=== PATIENT | female | born 1945 | race Caucasian/White ===

== ENCOUNTER → 2016-10-01 | Outpatient (REF) | payer MEDICARE, OTHER ==
[~2016-10-01] MED LIST: /PANT40TA OR; /WARF2TA PO; ACET65TA OR; ARTISOL10 OP; CALCIUM PO; COLA100C2 OR; DOXY100T IV; DRISDOL PO; HEPARIN FLUSH IV; OSTEO BI-FLEX PO; SALINE LOCK FLUSH IV; VITA500T PO; VITAMIN B COMPLE1 PO; VITAMIN D PO
[2016-10-01 20:34] LABS: ALBUMIN 4.1 GM/DL (3.2-5.2); ALBUMIN/GLOBULIN RATIO 1.08 (1.00-1.93); ALKALINE PHOSPHATASE 77 U/L (45-117); ALT/SGPT 31 U/L (12-78); ANION GAP 6 MEQ/L (8-16); AST/SGOT 23 U/L (15-37); BILIRUBIN,TOTAL 0.4 MG/DL (0.2-1.0); BLOOD UREA NITROGEN 12 MG/DL (7-18); CALCIUM LEVEL 9.1 MG/DL (8.8-10.2); CARBON DIOXIDE LEVEL 33 MEQ/L (21-32); CHLORIDE LEVEL 99 MEQ/L (98-107); CREATININE FOR GFR 0.69 MG/DL (0.55-1.02); GLOMERULAR FILTRATION RATE > 60.0 (>39); GLUCOSE, FASTING 85 MG/DL (83-110); POTASSIUM SERUM 4.5 MEQ/L (3.5-5.1); SODIUM LEVEL 138 MEQ/L (136-145); TOTAL PROTEIN 7.9 GM/DL (6.4-8.2)
[2016-10-01 21:05] LABS: MEAN CORPUSCULAR HEMOGLOBIN 28.7 pg (27.0-33.0); MEAN CORPUSCULAR HGB CONC 30.9 g/dl (32.0-36.5); MEAN CORPUSCULAR VOLUME 93.2 fl (80.0-96.0); RED CELL DISTRIBUTION WIDTH 13.9 % (11.5-14.5); WHITE BLOOD COUNT 10.7 K/mm3 (4.0-10.0)
== END ==
LOC: M SFHCADAM 15:26
PROVIDERS: ATTEND Family Medicine
DX: I26.99 Other pulmonary embolism without acute cor pulmonale (principal); E21.0 Primary hyperparathyroidism

== ENCOUNTER → 2017-04-21 | Outpatient (REF) | payer MEDICARE, OTHER ==
[2017-04-21 12:28] LABS: MEAN CORPUSCULAR HEMOGLOBIN 29.9 pg (27.0-33.0); MEAN CORPUSCULAR HGB CONC 31.2 g/dl (32.0-36.5); MEAN CORPUSCULAR VOLUME 95.9 fl (80.0-96.0); PLATELET COUNT, AUTOMATED 348 10^3/uL (150-450); RED CELL DISTRIBUTION WIDTH 14.4 % (11.5-14.5); WHITE BLOOD COUNT 11.1 10^3/uL (4.0-10.0)
[2017-04-21 12:57] LABS: ALBUMIN 3.9 GM/DL (3.2-5.2); ALBUMIN/GLOBULIN RATIO 1.15 (1.00-1.93); ALKALINE PHOSPHATASE 72 U/L (45-117); ALT/SGPT 21 U/L (12-78); ANION GAP 8 MEQ/L (8-16); AST/SGOT 21 U/L (7-37); BILIRUBIN,TOTAL 0.3 MG/DL (0.2-1.0); BLOOD UREA NITROGEN 13 MG/DL (7-18); CALCIUM LEVEL 9.3 MG/DL (8.8-10.2); CARBON DIOXIDE LEVEL 30 MEQ/L (21-32); CHLORIDE LEVEL 104 MEQ/L (98-107); CHOLESTEROL LEVEL 278 MG/DL (<200); CREATININE FOR GFR 0.75 MG/DL (0.55-1.02); FREE T4 1.08 NG/DL (0.76-1.46); GLOMERULAR FILTRATION RATE > 60.0 (>39); GLUCOSE, FASTING 126 MG/DL (83-110); POTASSIUM SERUM 4.4 MEQ/L (3.5-5.1); SODIUM LEVEL 142 MEQ/L (136-145); TOTAL PROTEIN 7.3 GM/DL (6.4-8.2); TRIGLYCERIDES LEVEL 267 MG/DL (<150)
== END ==
LOC: M SFHCADAM 09:39
PROVIDERS: ATTEND Family Medicine
DX: R73.03 Prediabetes (principal); E78.2 Mixed hyperlipidemia; E55.9 Vitamin D deficiency, unspecified; I26.99 Other pulmonary embolism without acute cor pulmonale; Z23 Encounter for immunization
CPT/HCPCS: 80053; 80061; 82306; 83036; 84439; 84443; 85027; 90662; G0008; G0463

== ENCOUNTER → 2017-08-05 | Outpatient (CLI) | payer MEDICARE, OTHER | LOC: M ADAMS 15:14 | DX: J20.9 Acute bronchitis, unspecified (principal) | CPT/HCPCS: 71046 ==

== ENCOUNTER 2018-03-01 13:20 | Inpatient (IN) | payer MEDICARE, BC, OTHER ==
[2018-03-01] MEDS: PANTOPRAZOLE 40MG TAB (PROTONIX) PO (09:00)
[~2018-03-01 13:20] MED LIST changes: +CIPROFLOXACIN 200 MG in APPROPRIATE DILUENT 1 EA IV; -GASTROGRAFIN SOLUTION 30ML (Q9963) As Ordered; -ISOVUE-370 76% 100ML VIAL (Q9967) As Ordered
[2018-03-01] MEDS: NS 1,000 ML IV ×2 (14:22→21:00)
[2018-03-01] MEDS: NORCO, ANEXSIA 5/325MG TABLET (HYDROcodone/ACETAMINOPHEN) PO ×2 (14:30→23:01)
[2018-03-01] MEDS: ONDANSETRON 4MG/2ML VIAL (J2405) IV ×2 (16:00→22:00)
[2018-03-01] MEDS: CIPROFLOXACIN/D5W 400 MG/200 ML BAG (J0744) As Ordered (16:45)
[2018-03-01] MEDS: LIDOCAINE 2% 5ML JELLY UROJET As Ordered (17:01)
[2018-03-01] MEDS: CONRAY-60 60% 50ML VIAL (Q9961) As Ordered (17:05)
[2018-03-01] MEDS ORDERED: ONDANSETRON 4MG/2ML VIAL (J2405) As Ordered (17:19)
[2018-03-01] MEDS ORDERED: fentaNYL 100 MCG/2 ML INJECTION (J3010) As Ordered ×2 (17:19→17:21)
[2018-03-01] MEDS ORDERED: LIDOCAINE 2% INJ 100 MG/5 ML SDV (FOR ANES.) As Ordered (17:19)
[2018-03-01] MEDS ORDERED: ESMOLOL INJ 100MG/10ML VIAL As Ordered (17:19)
[2018-03-01] MEDS ORDERED: MIDAZOLAM INJ 2 MG/2 ML VIAL (J2250) As Ordered (17:19)
[2018-03-01] MEDS ORDERED: PROPOFOL 200 MG/20 ML VIAL As Ordered (17:19)
[2018-03-01] MEDS ORDERED: fentaNYL 100 MCG/2 ML INJECTION (J3010) IV (18:00)
[2018-03-01] MEDS ORDERED: NORCO, ANEXSIA 5/325MG TABLET (HYDROcodone/ACETAMINOPHEN) PO (18:00)
[2018-03-01] MEDS: LR 1,000 ML IV (18:00)
[2018-03-01] MEDS ORDERED: ONDANSETRON 4MG/2ML VIAL (J2405) IV (18:00)
[2018-03-01] MEDS: MORPHINE 4 MG/ML 1ML VIAL/SYRINGE (J2270) IV (20:23)
[2018-03-02] MEDS: MORPHINE 4 MG/ML 1ML VIAL/SYRINGE (J2270) IV ×3 (01:20→06:42)
[2018-03-02] MEDS: NORCO, ANEXSIA 5/325MG TABLET (HYDROcodone/ACETAMINOPHEN) PO ×2 (03:08→10:34)
[2018-03-02] MEDS: ONDANSETRON 4MG/2ML VIAL (J2405) IV ×4 (04:00→21:44)
[2018-03-02] MEDS: NS 1,000 ML IV ×3 (05:00→21:41)
[2018-03-02] MEDS: CIPROFLOXACIN 400 MG in APPROPRIATE DILUENT 1 EA IV ×2 (05:53→17:37)
[2018-03-02 05:55] LABS: BASO # 0.1 10^3/uL (0.0-0.2); BASO % 0.4 % (0.0-1.0); EOS # 0.1 10^3/uL (0.0-0.50); HEMATOCRIT 34.8 % (36.0-47.0); HEMOGLOBIN 10.7 g/dl (12.0-15.5); IMMATURE GRANULOCYTE % 0.7 % (0-3.0); LYMPH # 1.6 10^3/uL (1.5-4.5); LYMPH % 11.4 % (24.0-44.0); MEAN CORPUSCULAR HEMOGLOBIN 29.2 pg (27.0-33.0); MEAN CORPUSCULAR HGB CONC 30.7 g/dl (32.0-36.5); MEAN CORPUSCULAR VOLUME 94.8 fl (80.0-96.0); MONO # 1.3 10^3/uL (0.0-0.8); MONO % 9.5 % (0.0-5.0); NEUTROPHILS # 10.4 10^3/uL (1.8-7.7); PLATELET COUNT, AUTOMATED 313 10^3/uL (150-450); RED BLOOD COUNT 3.67 10^6/uL (4.00-5.40); RED CELL DISTRIBUTION WIDTH 14.7 % (11.5-14.5); WHITE BLOOD COUNT 13.6 10^3/uL (4.0-10.0)
[2018-03-02 06:21] LABS: ANION GAP 5 MEQ/L (8-16); BLOOD UREA NITROGEN 10 MG/DL (7-18); CALCIUM LEVEL 8.2 MG/DL (8.8-10.2); CARBON DIOXIDE LEVEL 32 MEQ/L (21-32); CHLORIDE LEVEL 102 MEQ/L (98-107); CREATININE FOR GFR 0.93 MG/DL (0.55-1.30); GLOMERULAR FILTRATION RATE > 60.0 (>39); GLUCOSE, FASTING 145 MG/DL (70-100); POTASSIUM SERUM 3.8 MEQ/L (3.5-5.1); SODIUM LEVEL 139 MEQ/L (136-145)
[2018-03-02] MEDS: PANTOPRAZOLE 40MG TAB (PROTONIX) PO (09:06)
[2018-03-02] MEDS: oxyBUTYnin *DITROPAN XL* 5 MG TABCR PO (10:08)
[2018-03-02] MEDS: RIVAROXABAN 20 MG TAB (XARELTO) PO (17:37)
[2018-03-02] MEDS: ACETAMINOPHEN 500 MG TAB PO (21:41)
[2018-03-03] MEDS: ONDANSETRON 4MG/2ML VIAL (J2405) IV ×4 (04:00→22:00)
[2018-03-03] MEDS: ACETAMINOPHEN 500 MG TAB PO ×3 (04:08→19:41)
[2018-03-03] MEDS: CIPROFLOXACIN 400 MG in APPROPRIATE DILUENT 1 EA IV (05:17)
[2018-03-03] MEDS: NS 1,000 ML IV (05:17)
[2018-03-03 05:49] LABS: BASO # 0.1 10^3/uL (0.0-0.2); BASO % 0.5 % (0.0-1.0); EOS # 0.2 10^3/uL (0.0-0.50); EOS % 1.5 % (0.0-3.0); HEMATOCRIT 35.2 % (36.0-47.0); HEMOGLOBIN 10.7 g/dl (12.0-15.5); IMMATURE GRANULOCYTE % 0.6 % (0-3.0); LYMPH # 1.9 10^3/uL (1.5-4.5); LYMPH % 16.6 % (24.0-44.0); MEAN CORPUSCULAR HEMOGLOBIN 29.4 pg (27.0-33.0); MEAN CORPUSCULAR HGB CONC 30.4 g/dl (32.0-36.5); MEAN CORPUSCULAR VOLUME 96.7 fl (80.0-96.0); MONO # 1.2 10^3/uL (0.0-0.8); MONO % 10.1 % (0.0-5.0); NEUTROPHILS # 8.2 10^3/uL (1.8-7.7); NEUTROPHILS % 70.7 % (36.0-66.0); PLATELET COUNT, AUTOMATED 348 10^3/uL (150-450); RED BLOOD COUNT 3.64 10^6/uL (4.00-5.40); RED CELL DISTRIBUTION WIDTH 14.9 % (11.5-14.5); WHITE BLOOD COUNT 11.5 10^3/uL (4.0-10.0)
[2018-03-03 06:09] LABS: ANION GAP 8 MEQ/L (8-16); BLOOD UREA NITROGEN 9 MG/DL (7-18); CALCIUM LEVEL 8.7 MG/DL (8.8-10.2); CARBON DIOXIDE LEVEL 31 MEQ/L (21-32); CHLORIDE LEVEL 105 MEQ/L (98-107); CREATININE FOR GFR 0.85 MG/DL (0.55-1.30); GLOMERULAR FILTRATION RATE > 60.0 (>39); GLUCOSE, FASTING 136 MG/DL (70-100); POTASSIUM SERUM 4.6 MEQ/L (3.5-5.1); SODIUM LEVEL 144 MEQ/L (136-145)
[2018-03-03] MEDS ORDERED: ALBUTEROL SULFATE 2.5 MG/0.5 ML INH NEB SOLN NEB (08:15)
[2018-03-03] MEDS ORDERED: DOCUSATE SODIUM 100 MG CAP PO (08:30)
[2018-03-03] MEDS: PANTOPRAZOLE 40MG TAB (PROTONIX) PO (09:23)
[2018-03-03] MEDS: oxyBUTYnin *DITROPAN XL* 5 MG TABCR PO (09:23)
[2018-03-03 13:49] LABS: ALBUMIN 2.7 GM/DL (3.2-5.2); ALBUMIN/GLOBULIN RATIO 0.71 (1.00-1.93); ALKALINE PHOSPHATASE 74 U/L (45-117); ALT/SGPT 21 U/L (12-78); ANION GAP 8 MEQ/L (8-16); AST/SGOT 22 U/L (7-37); BILIRUBIN,TOTAL 0.3 MG/DL (0.2-1.0); BLOOD UREA NITROGEN 9 MG/DL (7-18); CALCIUM LEVEL 8.7 MG/DL (8.8-10.2); CARBON DIOXIDE LEVEL 31 MEQ/L (21-32); CHLORIDE LEVEL 105 MEQ/L (98-107); CREATININE FOR GFR 0.74 MG/DL (0.55-1.30); GLOMERULAR FILTRATION RATE > 60.0 (>39); GLUCOSE, FASTING 108 MG/DL (70-100); LIPASE 326 U/L (73-393); POTASSIUM SERUM 4.7 MEQ/L (3.5-5.1); SODIUM LEVEL 144 MEQ/L (136-145); TOTAL PROTEIN 6.5 GM/DL (6.4-8.2)
[2018-03-03] MEDS: RIVAROXABAN 20 MG TAB (XARELTO) PO (18:36)
[2018-03-03] MEDS: CIPROFLOXACIN 500 MG TAB PO (18:36)
[2018-03-03] MEDS: NORCO, ANEXSIA 5/325MG TABLET (HYDROcodone/ACETAMINOPHEN) PO (22:14)
[2018-03-04] MEDS: ONDANSETRON 4MG/2ML VIAL (J2405) IV ×2 (03:24→08:55)
[2018-03-04] MEDS: NORCO, ANEXSIA 5/325MG TABLET (HYDROcodone/ACETAMINOPHEN) PO (03:44)
[2018-03-04 05:23] LABS: BASO # 0.1 10^3/uL (0.0-0.2); BASO % 0.6 % (0.0-1.0); EOS # 0.3 10^3/uL (0.0-0.50); EOS % 2.7 % (0.0-3.0); HEMATOCRIT 33.7 % (36.0-47.0); HEMOGLOBIN 10.3 g/dl (12.0-15.5); IMMATURE GRANULOCYTE % 0.7 % (0-3.0); LYMPH # 1.8 10^3/uL (1.5-4.5); LYMPH % 18.5 % (24.0-44.0); MEAN CORPUSCULAR HEMOGLOBIN 29.2 pg (27.0-33.0); MEAN CORPUSCULAR HGB CONC 30.6 g/dl (32.0-36.5); MEAN CORPUSCULAR VOLUME 95.5 fl (80.0-96.0); MONO # 0.9 10^3/uL (0.0-0.8); MONO % 9.6 % (0.0-5.0); NEUTROPHILS # 6.6 10^3/uL (1.8-7.7); NEUTROPHILS % 67.9 % (36.0-66.0); PLATELET COUNT, AUTOMATED 316 10^3/uL (150-450); RED BLOOD COUNT 3.53 10^6/uL (4.00-5.40); RED CELL DISTRIBUTION WIDTH 14.6 % (11.5-14.5); WHITE BLOOD COUNT 9.7 10^3/uL (4.0-10.0)
[2018-03-04] MEDS: CIPROFLOXACIN 500 MG TAB PO (05:25)
[2018-03-04 05:44] LABS: ESTIMATED AVERAGE GLUCOSE 146 MG/DL (60-110); HEMOGLOBIN A1c 6.7 %
[2018-03-04 05:50] LABS: ANION GAP 6 MEQ/L (8-16); BLOOD UREA NITROGEN 9 MG/DL (7-18); CALCIUM LEVEL 8.6 MG/DL (8.8-10.2); CARBON DIOXIDE LEVEL 32 MEQ/L (21-32); CHLORIDE LEVEL 105 MEQ/L (98-107); CREATININE FOR GFR 0.78 MG/DL (0.55-1.30); GLOMERULAR FILTRATION RATE > 60.0 (>39); GLUCOSE, FASTING 118 MG/DL (70-100); POTASSIUM SERUM 3.9 MEQ/L (3.5-5.1); SODIUM LEVEL 143 MEQ/L (136-145)
[2018-03-04] MEDS: PANTOPRAZOLE 40MG TAB (PROTONIX) PO (08:55)
[2018-03-04] MEDS: oxyBUTYnin *DITROPAN XL* 5 MG TABCR PO (08:55)
[2018-03-04] MEDS ORDERED: SLF 3 ML SYR IV ×2 (11:30→14:00)
== END 2018-03-04 12:56 | disposition home or self-care (01) | DRG 694 ==
LOC: M PCU 13:20
PROC: 0T9680Z Drainage of Right Ureter with Drainage Device, Via Natural or Artificial Opening Endoscopic (ICD-10-PCS; principal; 2018-03-01 14:04)
DX: N20.2 Calculus of kidney with calculus of ureter (principal); N39.0 Urinary tract infection, site not specified; K40.90 Unilateral inguinal hernia, without obstruction or gangrene, not specified as recurrent; K21.9 Gastro-esophageal reflux disease without esophagitis; R16.0 Hepatomegaly, not elsewhere classified; B96.4 Proteus (mirabilis) (morganii) as the cause of diseases classified elsewhere; Z87.442 Personal history of urinary calculi; Z88.0 Allergy status to penicillin; Z88.1 Allergy status to other antibiotic agents; Z88.6 Allergy status to analgesic agent; Z88.8 Allergy status to other drugs, medicaments and biological substances; Z86.711 Personal history of pulmonary embolism

== ENCOUNTER → 2018-03-01 | Outpatient (CLI) | payer MEDICARE, BC, OTHER ==
[~2018-03-01] MED LIST changes: -/PANT40TA OR; -/WARF2TA PO; -ACET65TA OR; -ARTISOL10 OP; -CALCIUM PO; -COLA100C2 OR; -DOXY100T IV; -DRISDOL PO; +GASTROGRAFIN SOLUTION 30ML (Q9963) As Ordered; -HEPARIN FLUSH IV; +ISOVUE-370 76% 100ML VIAL (Q9967) As Ordered; -OSTEO BI-FLEX PO; -SALINE LOCK FLUSH IV; -VITA500T PO; -VITAMIN B COMPLE1 PO; -VITAMIN D PO
[2018-03-01 09:52] LABS: BASO # 0.1 10^3/uL (0.0-0.2); BASO % 0.4 % (0.0-1.0); EOS # 0.1 10^3/uL (0.0-0.50); EOS % 0.8 % (0.0-3.0); HEMATOCRIT 36.6 % (36.0-47.0); HEMOGLOBIN 11.5 g/dl (12.0-15.5); IMMATURE GRANULOCYTE % 0.5 % (0-3.0); LYMPH # 1.4 10^3/uL (1.5-4.5); MEAN CORPUSCULAR HEMOGLOBIN 29.2 pg (27.0-33.0); MEAN CORPUSCULAR HGB CONC 31.4 g/dl (32.0-36.5); MEAN CORPUSCULAR VOLUME 92.9 fl (80.0-96.0); MONO # 1.1 10^3/uL (0.0-0.8); MONO % 7.5 % (0.0-5.0); NEUTROPHILS # 11.6 10^3/uL (1.8-7.7); NEUTROPHILS % 80.8 % (36.0-66.0); PLATELET COUNT, AUTOMATED 343 10^3/uL (150-450); RED BLOOD COUNT 3.94 10^6/uL (4.00-5.40); RED CELL DISTRIBUTION WIDTH 14.5 % (11.5-14.5); WHITE BLOOD COUNT 14.4 10^3/uL (4.0-10.0)
[2018-03-01 10:10] LABS: ALBUMIN 3.1 GM/DL (3.2-5.2); ALBUMIN/GLOBULIN RATIO 0.65 (1.00-1.93); ALKALINE PHOSPHATASE 74 U/L (45-117); ALT/SGPT 16 U/L (12-78); AMYLASE 23 U/L (25-115); ANION GAP 8 MEQ/L (8-16); AST/SGOT 13 U/L (7-37); BILIRUBIN,TOTAL 0.6 MG/DL (0.2-1.0); BLOOD UREA NITROGEN 11 MG/DL (7-18); CALCIUM LEVEL 8.9 MG/DL (8.8-10.2); CARBON DIOXIDE LEVEL 30 MEQ/L (21-32); CHLORIDE LEVEL 100 MEQ/L (98-107); CREATININE FOR GFR 0.94 MG/DL (0.55-1.30); GLOMERULAR FILTRATION RATE > 60.0 (>39); GLUCOSE, FASTING 163 MG/DL (70-100); LIPASE 327 U/L (73-393); POTASSIUM SERUM 4.1 MEQ/L (3.5-5.1); SODIUM LEVEL 138 MEQ/L (136-145); TOTAL PROTEIN 7.9 GM/DL (6.4-8.2)
[2018-03-01 13:48] LABS: APPEARANCE, URINE CLOUDY (CLEAR); BACTERIA, URINE AUTO 1+ (NEGATIVE); BILIRUBIN, URINE AUTO NEGATIVE (NEGATIVE); BLOOD, URINE BLOOD NEGATIVE (NEGATIVE); COLOR, URINE YELLOW (YELLOW); GLUCOSE, URINE (UA) AUTO NEGATIVE (NEGATIVE); KETONE, URINE AUTO NEGATIVE (NEGATIVE); LEUKOCYTE ESTERASE, URINE AUTO 3+ (NEGATIVE); MUCUS, URINE SMALL (NEGATIVE); NITRITE, URINE AUTO NEGATIVE (NEGATIVE); PROTEIN, URINE AUTO 1+ mg/dL (NEGATIVE); RBC, URINE AUTO 26 /HPF (0-3); SPECIFIC GRAVITY URINE AUTO 1.016 (1.002-1.035); SQUAMOUS EPITHELIAL CELL UR AU 1 /HPF (0-6); UROBILINOGEN, URINE AUTO 0.2 mg/dL (0.0-2.0); WBC, URINE AUTO TNTC /HPF (0-3)
== END ==
LOC: M LAB 09:45
DX: N20.1 Calculus of ureter (principal); N20.0 Calculus of kidney; K40.90 Unilateral inguinal hernia, without obstruction or gangrene, not specified as recurrent; R16.0 Hepatomegaly, not elsewhere classified; R10.9 Unspecified abdominal pain
CPT/HCPCS: Q9963

== ENCOUNTER → 2018-03-15 | Outpatient (REF) | payer MEDICARE, OTHER ==
[2018-03-15 20:10] LABS: APPEARANCE, URINE CLOUDY (CLEAR); BACTERIA, URINE AUTO 2+ (NEGATIVE); BILIRUBIN, URINE AUTO NEGATIVE (NEGATIVE); BLOOD, URINE BLOOD NEGATIVE (NEGATIVE); COLOR, URINE AMBER (YELLOW); GLUCOSE, URINE (UA) AUTO NEGATIVE (NEGATIVE); KETONE, URINE AUTO NEGATIVE (NEGATIVE); LEUKOCYTE ESTERASE, URINE AUTO 3+ (NEGATIVE); MUCUS, URINE SMALL (NEGATIVE); NITRITE, URINE AUTO POSITIVE (NEGATIVE); PROTEIN, URINE AUTO 1+ mg/dL (NEGATIVE); RBC, URINE AUTO 12 /HPF (0-3); SPECIFIC GRAVITY URINE AUTO 1.012 (1.002-1.035); SQUAMOUS EPITHELIAL CELL UR AU 8 /HPF (0-6); UROBILINOGEN, URINE AUTO 0.2 mg/dL (0.0-2.0); WBC, URINE AUTO TNTC /HPF (0-3)
== END ==
LOC: M SFHCADAM 11:50
DX: N20.0 Calculus of kidney (principal); Z87.440 Personal history of urinary (tract) infections
CPT/HCPCS: 81001

== ENCOUNTER → 2018-03-18 | Outpatient (REF) | payer MEDICARE, OTHER ==
[2018-03-18 13:09] LABS: HEMATOCRIT 40.3 % (36.0-47.0); HEMOGLOBIN 12.3 g/dl (12.0-15.5); MEAN CORPUSCULAR HEMOGLOBIN 28.7 pg (27.0-33.0); MEAN CORPUSCULAR HGB CONC 30.5 g/dl (32.0-36.5); MEAN CORPUSCULAR VOLUME 93.9 fl (80.0-96.0); PLATELET COUNT, AUTOMATED 489 10^3/uL (150-450); RED BLOOD COUNT 4.29 10^6/uL (4.00-5.40); RED CELL DISTRIBUTION WIDTH 14.7 % (11.5-14.5); WHITE BLOOD COUNT 10.2 10^3/uL (4.0-10.0)
[2018-03-18 13:23] LABS: BACTERIA, URINE AUTO 3+ (NEGATIVE); MUCUS, URINE SMALL (NEGATIVE); RBC, URINE AUTO 26 /HPF (0-3); SQUAMOUS EPITHELIAL CELL UR AU 4 /HPF (0-6); WBC, URINE AUTO TNTC /HPF (0-3)
[2018-03-18 13:24] LABS: INR 1.26
[2018-03-18 13:25] LABS: PARTIAL THROMBOPLASTIN TIME 35.4 SECONDS (25.4-37.6)
[2018-03-18 13:45] LABS: ANION GAP 9 MEQ/L (8-16); BLOOD UREA NITROGEN 9 MG/DL (7-18); CALCIUM LEVEL 9.1 MG/DL (8.8-10.2); CARBON DIOXIDE LEVEL 32 MEQ/L (21-32); CHLORIDE LEVEL 101 MEQ/L (98-107); GLOMERULAR FILTRATION RATE > 60.0 (>39); GLUCOSE, FASTING 101 MG/DL (70-100); POTASSIUM SERUM 4.7 MEQ/L (3.5-5.1); SODIUM LEVEL 142 MEQ/L (136-145)
[2018-03-18 14:44] LABS: APPEARANCE, URINE CLOUDY (CLEAR); BILIRUBIN, URINE AUTO NEGATIVE (NEGATIVE); BLOOD, URINE BLOOD 1+ (NEGATIVE); COLOR, URINE YELLOW (YELLOW); GLUCOSE, URINE (UA) AUTO NEGATIVE (NEGATIVE); KETONE, URINE AUTO NEGATIVE (NEGATIVE); LEUKOCYTE ESTERASE, URINE AUTO 3+ (NEGATIVE); NITRITE, URINE AUTO POSITIVE (NEGATIVE); PROTEIN, URINE AUTO 1+ mg/dL (NEGATIVE); SPECIFIC GRAVITY URINE AUTO 1.011 (1.002-1.035); UROBILINOGEN, URINE AUTO 0.2 mg/dL (0.0-2.0); YEAST LIKE CELL URINE AUTO SMALL
== END ==
LOC: M LABDRWAD 12:19
DX: Z01.818 Encounter for other preprocedural examination (principal); N20.0 Calculus of kidney; Z79.01 Long term (current) use of anticoagulants
CPT/HCPCS: 80048

== ENCOUNTER → 2018-04-05 | Outpatient (REF) | payer MEDICARE, OTHER ==
[2018-04-05 19:53] LABS: APPEARANCE, URINE TURBID (CLEAR); BACTERIA, URINE AUTO 2+ (NEGATIVE); BILIRUBIN, URINE AUTO NEGATIVE (NEGATIVE); BLOOD, URINE BLOOD 1+ (NEGATIVE); COLOR, URINE YELLOW (YELLOW); GLUCOSE, URINE (UA) AUTO NEGATIVE (NEGATIVE); KETONE, URINE AUTO NEGATIVE (NEGATIVE); LEUKOCYTE ESTERASE, URINE AUTO 3+ (NEGATIVE); MUCUS, URINE SMALL (NEGATIVE); NITRITE, URINE AUTO POSITIVE (NEGATIVE); PROTEIN, URINE AUTO 2+ mg/dL (NEGATIVE); RBC, URINE AUTO 22 /HPF (0-3); SPECIFIC GRAVITY URINE AUTO 1.011 (1.002-1.035); SQUAMOUS EPITHELIAL CELL UR AU 2 /HPF (0-6); UROBILINOGEN, URINE AUTO 0.2 mg/dL (0.0-2.0); WBC, URINE AUTO TNTC /HPF (0-3)
== END ==
LOC: M LABSMT 14:45 → M SFHCADAM 14:48
DX: N39.0 Urinary tract infection, site not specified (principal)
CPT/HCPCS: 81001

== ENCOUNTER → 2018-04-21 | Outpatient (CLI) | payer MEDICARE, OTHER | LOC: M ADAMS 09:17 | DX: R05 Cough (principal) | CPT/HCPCS: 71046 ==

== ENCOUNTER → 2018-04-26 | Outpatient (REF) | payer MEDICARE, OTHER ==
[2018-04-26 19:46] LABS: APPEARANCE, URINE CLOUDY (CLEAR); BACTERIA, URINE AUTO 1+ (NEGATIVE); BILIRUBIN, URINE AUTO NEGATIVE (NEGATIVE); BLOOD, URINE BLOOD 1+ (NEGATIVE); COLOR, URINE AMBER (YELLOW); GLUCOSE, URINE (UA) AUTO NEGATIVE (NEGATIVE); KETONE, URINE AUTO NEGATIVE (NEGATIVE); LEUKOCYTE ESTERASE, URINE AUTO 3+ (NEGATIVE); MUCUS, URINE SMALL (NEGATIVE); NITRITE, URINE AUTO NEGATIVE (NEGATIVE); PROTEIN, URINE AUTO 2+ mg/dL (NEGATIVE); RBC, URINE AUTO 20 /HPF (0-3); SPECIFIC GRAVITY URINE AUTO 1.011 (1.002-1.035); SQUAMOUS EPITHELIAL CELL UR AU 1 /HPF (0-6); UROBILINOGEN, URINE AUTO 0.2 mg/dL (0.0-2.0); WBC, URINE AUTO TNTC /HPF (0-3)
== END ==
LOC: M LABSMT 10:56
DX: N39.0 Urinary tract infection, site not specified (principal)
CPT/HCPCS: 81001

== ENCOUNTER → 2018-05-08 | Outpatient (CLI) | payer MEDICARE, OTHER, BC | LOC: M LAB 13:27 | DX: N39.0 Urinary tract infection, site not specified (principal) | CPT/HCPCS: 36415 ==

== ENCOUNTER 2018-05-13 11:32 | Day surgery (SDC) | payer MEDICARE, BC, OTHER ==
[~2018-05-13] VITALS: Ht 160 cm; Wt 123.8 kg
[~2018-05-13 11:32] MED LIST changes: +/PANT40TA OR; +/WARF2TA PO; +ACET65TA OR; +APAP325T4 PO; +ARTI99.0 OP; +ARTISOL10 OP; +ASCO500T PO; +CALCCHW19 PO; +CALCIUM PO; +CIPR-249 PO; -CIPROFLOXACIN 200 MG in APPROPRIATE DILUENT 1 EA IV; +COLA100C2 OR; +COLA100C5 PO; +DITR5TAB PO; +DOXY100T IV; +DRISDOL PO; +HEPARIN FLUSH IV; +OSTEO BI-FLEX PO; +OSTETAB7 PO; +PANT40TA3 PO; +SALINE LOCK FLUSH IV; +VITA500T PO; +VITAMIN B COMPLE1 PO; +VITAMIN D PO; +VITATAB11 PO; +XARE20TA PO
[2018-05-13] MEDS ORDERED: LR 1,000 ML IV SCH ×2 (11:45→18:30)
[2018-05-13] MEDS ORDERED: CIPROFLOXACIN 400 MG in APPROPRIATE DILUENT 1 EA IV ONE (12:00)
[2018-05-13] MEDS ORDERED: CONRAY-60 60% 50ML VIAL (Q9961) As Ordered ONE (15:13)
[2018-05-13] MEDS ORDERED: LIDOCAINE 2% INJ 100 MG/5 ML SDV (FOR ANES.) As Ordered ONE (15:37)
[2018-05-13] MEDS ORDERED: LIDOCAINE 2% JELLY 30 ML As Ordered ONE (15:37)
[2018-05-13] MEDS ORDERED: dexameTHASONE 4 MG/ML 1ML VIAL (J1100) As Ordered ONE (15:37)
[2018-05-13] MEDS ORDERED: MIDAZOLAM INJ 2 MG/2 ML VIAL (J2250) As Ordered ONE (15:37)
[2018-05-13] MEDS ORDERED: fentaNYL 100 MCG/2 ML INJECTION (J3010) As Ordered ONE (15:37)
[2018-05-13] MEDS ORDERED: PROPOFOL 200 MG/20 ML VIAL As Ordered ONE (15:37)
[2018-05-13] MEDS ORDERED: ONDANSETRON 4MG/2ML VIAL (J2405) As Ordered ONE (15:37)
[2018-05-13] MEDS ORDERED: diphenhydrAMINE INJ 50MG/ML VIAL (J1200) As Ordered ONE (16:23)
[2018-05-13] MEDS ORDERED: diphenhydrAMINE INJ 50MG/ML VIAL (J1200) IV ONE (16:30)
[2018-05-13] MEDS ORDERED: cefTRIAXone SOD 1 GM in D5W MINI-BAG PLUS 50 ML IV ONE (16:45)
--- NOTE | 2018-05-13 18:19 | REP ---
Retrograde pyelogram: A series of two intraoperative fluoroscopic views are performed during right ureteral stent placement. The proximal and distal pigtails are in satisfactory location. Fluoroscopic exposure time is 10 minutes. Fluoroscopic images are performed with last image hold technology and require no additional radiation. Electronically Signed by Anders Covington MD 05/13/2018 06:11 P
[2018-05-13] MEDS ORDERED: NORCO, ANEXSIA 5/325MG TABLET (HYDROcodone/ACETAMINOPHEN) PO PRN (18:30)
[2018-05-13] MEDS ORDERED: ONDANSETRON 4MG/2ML VIAL (J2405) IV PRN (18:30)
[2018-05-13] MEDS ORDERED: ACETAMINOPHEN TAB 650MG DOSE (2X325MG) PO PRN (18:30)
[2018-05-13 19:10] VITALS: BP 154/78
--- NOTE | 2018-05-16 07:47 | RO ---
DATE OF PROCEDURE: 05/13/2018 PREPROCEDURE DIAGNOSIS: Right kidney stones. POSTPROCEDURE DIAGNOSIS: Right renal masses. PROCEDURE: Cystoscopy, right ureteroscopy with basket extraction, right retrograde pyelogram with intraoperative interpretation of images, right ureteral stent placement. SURGEON: Dr. Wayne Martinez HUMAN RESOURCES LEADER: None. ANESTHESIA: General. OPERATIVE INDICATIONS: This is a 72-year-old female who was brought to the operating room about a month and a half ago for obstructing right sided kidney stones. At that time, there was concern that she might have had a urinary tract infection. Therefore, a stent was placed with a plan to treat her infection and bring her back later on for removal of the stones. She was brought to the operating room today for the procedure. DESCRIPTION OF PROCEDURE: The patient was brought to the operating room and general anesthesia was induced. Prophylactic antibiotics were infused. She was then placed in the dorsal lithotomy position and prepped and draped in the usual sterile fashion. A rigid cystoscope was inserted into the urethral meatus and advanced to the bladder. A guidewire was then advanced up the right collecting system alongside the previously placed stent. That stent was then removed leaving the wire in place. I then utilized the wire to advance a ureteral access sheath up into the right collecting system. The wire was then sutured to the drape to serve as a safety wire. I then went up the ureteral access sheath with a flexible ureteroscope and the right kidney was thoroughly examined. Of note, there were no stones in the kidney or ureter. There were several large pieces of soft tissue in the kidney as well as the proximal ureter. All of this tissue was removed using a basket. It was not possible to determine whether or not this tissue was old clot of potentially a collection of pus. After all the tissue had been removed, I examined the kidney thoroughly again and no stones were seen. A retrograde pyelogram was then performed and was notable for mild hydronephrosis and no extravasation. At this point, the ureteroscope was removed along with the access sheath and no additional lesions were seen within the ureter. I then utilized the previously placed wire to advance a 7 Polish x 22-32 cm JJ ureteral stent up into the right collecting system. The wire was then removed and there were adequate curls of the stent in the right renal pelvis and in the bladder. The bladder was then emptied of all fluid and this marked the conclusion of the procedure. The patient was then taken out of the dorsal lithotomy position, awakened from anesthesia and transported to the recovery room in stable condition. Estimated blood loss: 1 mL. Complications: None. Specimen: Tissue from right renal pelvis for culture and pathology. Plan: The patient will followup in the clinic in a few weeks for stent removal. BETSY
== END 2018-05-13 20:00 | disposition home or self-care (01) ==
LOC: M SDC 11:32
PROVIDERS: ATTEND Urology
DX: N20.0 Calculus of kidney (principal); E78.5 Hyperlipidemia, unspecified; E55.9 Vitamin D deficiency, unspecified; I73.9 Peripheral vascular disease, unspecified; Z88.0 Allergy status to penicillin; Z88.8 Allergy status to other drugs, medicaments and biological substances; K21.9 Gastro-esophageal reflux disease without esophagitis; R73.03 Prediabetes; Z79.01 Long term (current) use of anticoagulants; Z79.899 Other long term (current) drug therapy
CPT/HCPCS: 52332; 52352; 74420; 87070; 87075; 88305; C1769; C1894; C2617; J0696; J0744; J1100; J1200; J2250; J2405; J3010; Q9961

== ENCOUNTER → 2018-05-23 | Outpatient (CLI) | payer MEDICARE, BC, OTHER ==
--- NOTE | 2018-05-23 14:27 | REP ---
KUB, ONE VIEW: HISTORY: Kidney stone. Air is present in small and large intestine. There are no air-fluid levels or dilated loops of intestine. There is no pneumoperitoneum. Calcification is present overlying the right kidney, consistent with nephrolithiasis. A right ureteral stent is present. An IVC filter is present. IMPRESSION: Right nephrolithiasis. Electronically Signed by Walter Lorenzo MD 05/23/2018 02:31 P
[2018-05-23 18:15] LABS: AMORPHOUS SEDIMENT SMALL (NEGATIVE); APPEARANCE, URINE CLOUDY (CLEAR); BACTERIA, URINE AUTO 1+ (NEGATIVE); BILIRUBIN, URINE AUTO NEGATIVE (NEGATIVE); BLOOD, URINE BLOOD 2+ (NEGATIVE); COLOR, URINE YELLOW (YELLOW); GLUCOSE, URINE (UA) AUTO NEGATIVE (NEGATIVE); KETONE, URINE AUTO NEGATIVE (NEGATIVE); LEUKOCYTE ESTERASE, URINE AUTO 3+ (NEGATIVE); MUCUS, URINE SMALL (NEGATIVE); NITRITE, URINE AUTO NEGATIVE (NEGATIVE); PROTEIN, URINE AUTO 1+ mg/dL (NEGATIVE); RBC, URINE AUTO 44 /HPF (0-3); SPECIFIC GRAVITY URINE AUTO 1.008 (1.002-1.035); SQUAMOUS EPITHELIAL CELL UR AU 1 /HPF (0-6); UROBILINOGEN, URINE AUTO 0.2 mg/dL (0.0-2.0); WBC, URINE AUTO TNTC /HPF (0-3)
== END ==
LOC: M SMT 13:26
PROVIDERS: ATTEND Urology
DX: Z87.442 Personal history of urinary calculi (principal); Z96.0 Presence of urogenital implants
CPT/HCPCS: 51702; 74018; 81001; G0463

== ENCOUNTER → 2018-10-27 | Outpatient (CLI) | payer MEDICARE, OTHER ==
[~2018-10-27] MED LIST changes: -/PANT40TA OR; -/WARF2TA PO; +COUM1TAB16 PO; +PROT1TAB2 OR
--- NOTE | 2018-10-27 14:00 | REP ---
Lumbar spine series: Five views. History: Lumbar pain. Findings: Five views of the lumbar spine show clips in right upper quadrant and a vena cava filter in place to the right of the thoracolumbar junction. Lumbar vertebral body heights are preserved. There is no evidence of spondylolysis but there is a grade 1, 6 mm L5 S1 spondylolisthesis. There is also a degenerative L4-5, 6 mm grade 1 spondylolisthesis. There is osteoarthritic facet disease in the lower lumbar spine at L3-4 through L5-S1 bilaterally. No bony destructive lesion is seen. No fracture or collapse is seen. Degenerative disc disease is noted with anterior spurring and sclerosis most pronounced at L3-4 and L2-3. Degenerative disc changes are noted in the lower thoracic spine as well. Impression: Fairly advanced degenerative spondylosis. Degenerative grade 1 spondylolisthesis noted at both L4-5 and L5-S1. Osteoarthritic facet disease is fairly prominent bilaterally and L3-4 through L5-S1 as well. Electronically Signed by Merritt Mccoy MD 10/27/2018 02:05 P
== END ==
LOC: M ADAMS 11:59
PROVIDERS: ATTEND Family Medicine
DX: M43.16 Spondylolisthesis, lumbar region (principal); M43.17 Spondylolisthesis, lumbosacral region; M54.5 Low back pain; R73.03 Prediabetes; E55.9 Vitamin D deficiency, unspecified
CPT/HCPCS: 72110; 80053; 82306; 83036; 83970; 85027; G0472

== ENCOUNTER → 2018-10-27 | Outpatient (REF) | payer MEDICARE, OTHER ==
[2018-10-27 20:55] LABS: HEMATOCRIT 42.3 % (36.0-47.0); HEMOGLOBIN 12.7 g/dl (12.0-15.5); MEAN CORPUSCULAR HEMOGLOBIN 29.4 pg (27.0-33.0); MEAN CORPUSCULAR VOLUME 97.9 fl (80.0-96.0); PLATELET COUNT, AUTOMATED 346 10^3/uL (150-450); RED BLOOD COUNT 4.32 10^6/uL (4.00-5.40); WHITE BLOOD COUNT 9.9 10^3/uL (4.0-10.0)
[2018-10-27 20:57] LABS: ALBUMIN 4.1 GM/DL (3.2-5.2); ALT/SGPT 19 U/L (12-78); BILIRUBIN,TOTAL 0.4 MG/DL (0.2-1.0); BLOOD UREA NITROGEN 14 MG/DL (7-18); CALCIUM LEVEL 9.8 MG/DL (8.8-10.2); CARBON DIOXIDE LEVEL 34 MEQ/L (21-32); CHLORIDE LEVEL 102 MEQ/L (98-107); CREATININE FOR GFR 0.74 MG/DL (0.55-1.30); GLOMERULAR FILTRATION RATE > 60.0 (>39); GLUCOSE, FASTING 93 MG/DL (70-100); POTASSIUM SERUM 4.6 MEQ/L (3.5-5.1); SODIUM LEVEL 141 MEQ/L (136-145); TOTAL PROTEIN 7.4 GM/DL (6.4-8.2)
[2018-10-27 21:07] LABS: PTH INTACT 105.7 PG/ML (18.5-88.0); TOTAL 25(OH) VITAMIN D 23.2 NG/ML (30.0-100.0)
[2018-10-27 21:14] LABS: HEMOGLOBIN A1c 6.5 %
== END ==
LOC: M SFHCADAM 11:54
PROVIDERS: ATTEND Family Medicine
DX: I26.99 Other pulmonary embolism without acute cor pulmonale (principal); Z79.01 Long term (current) use of anticoagulants; R73.03 Prediabetes; E55.9 Vitamin D deficiency, unspecified; E21.0 Primary hyperparathyroidism; Z11.59 Encounter for screening for other viral diseases
CPT/HCPCS: 80053; 82306; 83036; 83970; 85027; G0472

== ENCOUNTER → 2019-03-28 | Outpatient (REF) | payer MEDICARE, OTHER ==
[~2019-03-28] MED LIST changes: -ARTI99.0 OP; +ARTIDRO2 OP
[2019-03-28 13:32] LABS: ALBUMIN 3.6 GM/DL (3.2-5.2); BLOOD UREA NITROGEN 12 MG/DL (7-18); CALCIUM LEVEL 9.2 MG/DL (8.8-10.2); CARBON DIOXIDE LEVEL 35 MEQ/L (21-32); CHLORIDE LEVEL 102 MEQ/L (98-107); CREATININE FOR GFR 0.88 MG/DL (0.55-1.30); GLOMERULAR FILTRATION RATE > 60.0 (>39); GLUCOSE, FASTING 139 MG/DL (70-100); PHOSPHORUS LEVEL 2.8 MG/DL (2.5-4.9); SODIUM LEVEL 141 MEQ/L (136-145)
[2019-03-28 13:38] LABS: PTH INTACT 130.5 PG/ML (18.5-88.0); TOTAL 25(OH) VITAMIN D 34.3 NG/ML (30.0-100.0)
== END ==
LOC: M SFHCADAM 09:52
PROVIDERS: ATTEND Family Medicine
DX: E21.5 Disorder of parathyroid gland, unspecified (principal); E55.9 Vitamin D deficiency, unspecified; Z79.899 Other long term (current) drug therapy

== ENCOUNTER 2019-08-24 16:02 | Inpatient (IN) | payer MEDICARE, BC, OTHER ==
[~2019-08-24] VITALS: Ht 160 cm; Wt 134.5 kg
[~2019-08-24 16:02] MED LIST changes: -ARTIDRO2 OP; +POLYOPD OP
[2019-08-24 18:29] LABS: BASO # 0.1 10^3/uL (0.0-0.2); BASO % 0.6 % (0.0-1.0); EOS # 0.2 10^3/uL (0.0-0.5); EOS % 1.7 % (0.0-3.0); HEMATOCRIT 38.4 % (36.0-47.0); HEMOGLOBIN 11.6 g/dl (12.0-15.5); LYMPH # 2.1 10^3/uL (1.5-5.0); LYMPH % 17.5 % (24.0-44.0); MEAN CORPUSCULAR HEMOGLOBIN 29.1 pg (27.0-33.0); MEAN CORPUSCULAR HGB CONC 30.2 g/dl (32.0-36.5); MEAN CORPUSCULAR VOLUME 96.5 fl (80.0-96.0); MONO % 8.5 % (0.0-5.0); NEUTROPHILS # 8.7 10^3/uL (1.5-8.5); NEUTROPHILS % 71.3 % (36.0-66.0); PLATELET COUNT, AUTOMATED 298 10^3/uL (150-450); RED BLOOD COUNT 3.98 10^6/uL (4.00-5.40); WHITE BLOOD COUNT 12.1 10^3/uL (4.0-10.0)
[2019-08-24] MEDS ORDERED: VITAD1000T PO (18:36)
[2019-08-24] MEDS ORDERED: CYAN100050 PO (18:36)
[2019-08-24] MEDS ORDERED: GLUCTAB6 PO (18:36)
[2019-08-24] MEDS ORDERED: ACET-683 PO (18:36)
[2019-08-24] MEDS ORDERED: GLUC1TAB58 PO (18:36)
[2019-08-24 18:44] LABS: INR 1.08; PARTIAL THROMBOPLASTIN TIME 31.4 SECONDS (25.0-38.4); PROTHROMBIN TIME 13.7 SECONDS (11.8-14.0)
[2019-08-24 18:52] LABS: ALT/SGPT 15 U/L (12-78); BILIRUBIN,TOTAL 0.4 MG/DL (0.2-1.0); BLOOD UREA NITROGEN 12 MG/DL (7-18); CALCIUM LEVEL 8.9 MG/DL (8.8-10.2); CARBON DIOXIDE LEVEL 34 MEQ/L (21-32); CHLORIDE LEVEL 100 MEQ/L (98-107); CREATININE FOR GFR 0.76 MG/DL (0.55-1.30); GLOMERULAR FILTRATION RATE > 60.0 (>39); GLUCOSE, FASTING 168 MG/DL (70-100); POTASSIUM SERUM 4.5 MEQ/L (3.5-5.1); SODIUM LEVEL 140 MEQ/L (136-145)
[2019-08-24 18:53] LABS: ALBUMIN 3.3 GM/DL (3.2-5.2); BILIRUBIN,DIRECT 0.2 MG/DL (0.0-0.2); LIPASE 444 U/L (73-393); NT-PRO BNP 52 PG/ML (<125); TOTAL PROTEIN 7.2 GM/DL (6.4-8.2)
[2019-08-24] MEDS ORDERED: ISOVUE-370 76% 100ML VIAL (Q9967) As Ordered ONE (18:59)
[2019-08-24] MEDS ORDERED: NS 500 ML IV ONE (19:15)
[2019-08-24] MEDS ORDERED: MORPHINE 2 MG/ML 1ML VIAL (J2270) IV ONE (20:00)
[2019-08-24] MEDS ORDERED: ONDANSETRON 4MG/2ML VIAL (J2405) IV ONE (20:00)
[2019-08-24] MEDS ORDERED: DOXYCYCLINE HYCLATE 100 MG in D5W MINI-BAG PLUS 100 ML IV ONE (20:00)
[2019-08-24 20:21] LABS: ERYTHROCYTE SEDIMENTATION RATE 68 mm/hr (0-30)
--- NOTE | 2019-08-24 20:29 | REPVR ---
PROCEDURE INFORMATION: Exam: CT Angiography Chest With Contrast Exam date and time: 08/24/2019 7:21 PM Age: 73 years old Clinical indication: Shortness of breath; Additional info: Short of breath, HX pe stopped xarelto TECHNIQUE: Imaging protocol: Computed tomographic angiography of the chest with intravenous contrast. 3D rendering: MIP and/or 3D reconstructed images were created by the technologist. Radiation optimization: All CT scans at this facility use at least one of these dose optimization techniques: automated exposure control; mA and/or kV adjustment per patient size (includes targeted exams where dose is matched to clinical indication); or iterative reconstruction. Contrast material: ISOVUE 370; Contrast volume: 100 ml; Contrast route: IV; COMPARISON: DX CHEST 2 VIEW 04/21/2018 9:17 AM FINDINGS: Pulmonary arteries: Small filling defect in the right lower lobe segmental branch (series 401, image 94) representing a small pulmonary embolism. Aorta: Unremarkable. No aortic aneurysm. No aortic dissection. Inferior vena cava: IVC filter. Thyroid: Thyroid nodule measuring 2.3 x 3.7 cm in the isthmus. Lungs: Unremarkable. No consolidation. No masses. Pleural space: Unremarkable. No pneumothorax. No pleural effusion. Heart: Unremarkable. No cardiomegaly. No pericardial effusion. Gallbladder and bile ducts: Cholecystectomy clips. Lymph nodes: Unremarkable. No enlarged lymph nodes. Bones/joints: Unremarkable. No acute fracture. Soft tissues: Unremarkable. IMPRESSION: Small acute pulmonary embolism in the right lower lobe segmental branch. COMMENTS: Consistent with the [employer]'s Incidental Findings Committee white paper (J Am Kiki Radiol 2015): In patients aged 35 years and older with an incidental thyroid nodule equal to or greater than 1.[address], MRI or extrathyroidal US, further evaluation with dedicated thyroid US is recommended for patients with normal life expectancy and without comorbidities. For smaller nodules without suspicious features, no further evaluation or follow up is recommended. Electronically signed by: Gal Delgado On 08/24/2019 20:28:45 PM
--- NOTE | 2019-08-24 21:00 | REPVR ---
PROCEDURE INFORMATION: Exam: CT Abdomen And Pelvis With Contrast Exam date and time: 08/24/2019 7:21 PM Age: 73 years old Clinical indication: Mass, lump, or swelling; Other: Suprapubic; Additional info: Swollen, firm area suprapubic TECHNIQUE: Imaging protocol: Computed tomography of the abdomen and pelvis with intravenous contrast. Radiation optimization: All CT scans at this facility use at least one of these dose optimization techniques: automated exposure control; mA and/or kV adjustment per patient size (includes targeted exams where dose is matched to clinical indication); or iterative reconstruction. Contrast material: ISOVUE 370; Contrast volume: 100 ml; Contrast route: IV; COMPARISON: CT ABD PELVIS W/O FOL BY WIT 03/01/2018 11:25 AM FINDINGS: Liver: Normal. No mass. Gallbladder and bile ducts: Cholecystectomy clips. Pancreas: Normal. No ductal dilation. Spleen: Normal. No splenomegaly. Adrenals: Normal. No mass. Kidneys and ureters: Normal. No hydronephrosis. Stomach and bowel: Unremarkable. No obstruction. No mucosal thickening. Appendix: No evidence of appendicitis. Intraperitoneal space: Unremarkable. No free air. No significant fluid collection. Vasculature: IVC filter. Lymph nodes: Unremarkable. No enlarged lymph nodes. Bladder: Unremarkable as visualized. Reproductive: Unremarkable as visualized. Bones/joints: Mild degenerative changes of the spine. Soft tissues: Perineal subcutaneous varices. There is skin thickening and fat stranding of the perineum. Other findings: 1.3 cm calculus in the right pelvis IMPRESSION: Perineal subcutaneous varices with skin thickening and fat stranding representing cellulitis. No fluid collections. Calculus in the right renal pelvis measuring 1.3 cm with mild right hydronephrosis. Electronically signed by: Gal Delgado On 08/24/2019 20:59:48 PM
[2019-08-24] MEDS ORDERED: VANCOMYCIN HCL 2,000 MG in D5W 500 ML IV ONE (21:45)
--- NOTE | 2019-08-24 23:00 | HPEPDOC ---
[facility] Medical History & Physical Date of Admission Aug 25, 2019 Date of Service: Aug 25, 2019 Primary Care Physician: Jovi Cox MD Attending Physician: Jovi Cox MD History and Physical TIME OF SERVICE: 10:10 PM CHIEF COMPLAINT: Pelvic pain HISTORY OF PRESENT ILLNESS: This is a 73-year-old female who presents with complaints of pelvic area, redness, warmth, pain and swelling. She denies having fevers, chills, dysuria, or change in the smell or the color of the urine. Per the ER provider . CT of abdomen showed findings consistent with cellulitis while CTA confirmed the presence of right lower lobe PE; the patient was previously on Xarelto but she discontinued it about 4 weeks ago because she had hematuria. REVIEW OF SYSTEMS: 12 point review of systems negative except as listed in HPI PAST MEDICAL/ SURGICAL HISTORY: History of PE, no longer on Xarelto History of Nephrolithiasis GERD Obesity Unsteady gait, uses cane History of Lyme's disease Vitamin D deficiency Ureteral stent placement Bladder suspension surgery Tubal ligation Hysterectomy Cholecystectomy Appendectomy SOCIAL HISTORY: She is a former smoker FAMILY HISTORY: CKD Diabetes CVD ALLERGIES: Please see below. HOME MEDICATIONS: Please see below. Vital Signs Date Time Temp Pulse Resp B/P (MAP) Pulse Ox O2 Delivery O2 Flow Rate FiO2 08/24/19 20:38 20 08/24/19 16:59 08/24/19 16:02 98.0 89 94 Room Air PHYSICAL EXAMINATION: GEN: Obese/ NAD INTEGUMENT: Skin at the suprapubic area is red, warm and swollen with a peau d'orange appearance HEENT: NCAT / mucus membranes moist and pink CVS: RRR/NMRG LUNGS: lungs are clear to auscultation bilaterally on room air ABDOMEN: Contour ( obese) MSK/EXTREMITIES: range of motion intact in all 4 extremities NEURO: CN 2-12 are grossly intact / speech is not dysarthric / able to do it slowly with assistance PSYCH: alert and oriented to person place and time/ able to understand and follow all commands LABORATORY DATA: See below. IMAGING: CTA chest "IMPRESSION: Small acute pulmonary embolism in the right lower lobe segmental branch." CT abdomen and pelvis "IMPRESSION: Perineal subcutaneous varices with skin thickening and fat stranding representing cellulitis. No fluid collections. Calculus in the right renal pelvis measuring 1.3 cm with mild right hydronephrosis." MICROBIOLOGY: 08/24/19 Blood Culture, Received Pending 08/24/19 Urine Culture, Received Pending 08/24/19 Blood Culture, Received Pending ASSESSMENT: Ms. Zayas is a 73-year-old with a history of PE, GERD, nephrolithiasis, unsteady gait, and obesity who is admitted for treatment of perineal cellulitis. PLAN: 1. Perineal Cellulitis Her WBC count, ESR and CRP are elevated. She has an allergy to cephalosporins Plan: Admit to medical floor / Vancomycin / follow-up blood cx 2. Asymptomatic bacteria - will not treat 3. Chronic Lower lobe PE - the daytime team may consider consulting Pulm to determine if she needs to resume Xarelto 4. GERD - PPI 5. Obesity with BMI 52.2, complicates care - bariatric bed / follow-up A1c / she can follow-up with her PCP to discuss referral to bariatric surgeon DVT PROPHYLAXIS: lovenox DISPOSITION: home after more than 2 midnight's stay Laboratory Data Labs 24H Laboratory Tests 2 08/24/19 17:56: Immature Granulocyte % (Auto) 0.4, Neutrophils (%) (Auto) 71.3H, Lymphocytes (%) (Auto) 17.5L, Monocytes (%) (Auto) 8.5H, Eosinophils (%) (Auto) 1.7, Basophils (%) (Auto) 0.6, Neutrophils # (Auto) 8.7H, Lymphocytes # (Auto) 2.1, Monocytes # (Auto) 1.0H, Eosinophils # (Auto) 0.2, Basophils # (Auto) 0.1, Nucleated Red Blood Cells % (auto) 0.0, Erythrocyte Sedimentation Rate 68H, Prothrombin Time 13.7, Prothromb Time International Ratio 1.08, Activated Partial Thromboplast Time 31.4, Anion Gap 6L, Glomerular Filtration Rate > 60.0, Calcium Level 8.9, Total Bilirubin 0.4, Direct Bilirubin 0.2, Aspartate Amino Transf (AST/SGOT) 23, Alanine Aminotransferase (ALT/SGPT) 15, Alkaline Phosphatase 76, C-Reactive Protein, Quantitative 14.20H, ZN-Ylp-G-Type Natriuretic Peptide 52, Total Protein 7.2, Albumin 3.3, Albumin/Globulin Ratio 0.85L, Lipase 444H 08/24/19 17:57: Urine Color YELLOW, Urine Appearance CLOUDYH, Urine pH 6.0, Urine Specific [place] 1.024, Urine Protein NEGATIVE, Urine Glucose (UA) NEGATIVE, Urine Ketones NEGATIVE, Urine Blood NEGATIVE, Urine Nitrite POSITIVEH, Urine Bilirubin NEGATIVE, Urine Urobilinogen 4.0H, Urine Leukocyte Esterase 3+H, Urine WBC (Auto) 271, Urine RBC (Auto) 16H, Urine Bacteria (Auto) 2+H, Urine Squamous Epithelial Cells 3, Urine Mucus (Auto) SMALL, Urine Sperm (Auto) , Lactic Acid L evel 1.4 CBC/BMP Laboratory Tests 08/24/19 17:56 Home Medications Scheduled Ascorbic Acid (Ascorbic Acid) 500 Mg Tab, 500 MG PO QHS Cholecalciferol (Vitamin D3) (Vitamin D3) 1,000 Unit Tablet, 1,000 UNITS PO DAILY Cyanocobalamin (Vitamin B-12) (Vitamin B-12) 1,000 Mcg Tablet, 1,000 MCG PO DAILY Gluc Gilliam/Chondro Gilliam A/Vit C/Mn (Glucosamine Chondroitin Tab) 1 Each Tablet, 2 TAB PO DAILY Glucosamine/D3/Boswellia Liss (Osteo Bi-Flex Tablet) 1 Each Tablet, 1 EACH PO DAILY Pantoprazole Sodium (Pantoprazole Sodium) 40 Mg Tab, 40 MG PO DAILY Scheduled PRN Acetaminophen (Acetaminophen) 500 Mg Tablet, 1,000 MG PO BID PRN for PAIN Allergies Coded Allergies: Cephalosporins (Verified Allergy, Unknown, rash, 08/24/19) Penicillins (Verified Allergy, Unknown, makes me break out in convulsions, 08/24/19) aspirin (Verified Allergy, Unknown, my mother told me, I don't know, 08/24/19) atorvastatin (Verified Allergy, Unknown, myalgia, 08/24/19) ciprofloxacin (Verified Allergy, Unknown, rash, 08/24/19) pravastatin (Verified Allergy, Unknown, myalgia, 08/24/19) A-FIB/CHADSVASC A-FIB History Current/History of A-Fib/PAF?: No Current PO Anticoag Therapy: PHUC Wheatley MD Aug 24, 2019 23:00
[2019-08-24] MEDS ORDERED: ACETAMINOPHEN 500 MG TAB PO ONE (23:15)
[2019-08-24] MEDS ORDERED: MAALOX 30 ML SUSP *UDC PO PRN (23:15)
[2019-08-24] MEDS: traMADol ER 100MG TABLET (ULTRAM ER) PO SCH (23:48)
[2019-08-25 02:55] VITALS: BP 139/87
[2019-08-25] MEDS: VANCOMYCIN HCL 1,000 MG, VIAL MATE ADAPTER 1 EACH in D5W 250 ML IV SCH ×3 (05:52→23:10)
[2019-08-25 06:00] VITALS: BP 144/81
[2019-08-25 06:00] LABS: HEMATOCRIT 35.9 % (36.0-47.0); HEMOGLOBIN 10.7 g/dl (12.0-15.5); MEAN CORPUSCULAR HEMOGLOBIN 28.7 pg (27.0-33.0); MEAN CORPUSCULAR HGB CONC 29.8 g/dl (32.0-36.5); MEAN CORPUSCULAR VOLUME 96.2 fl (80.0-96.0); PLATELET COUNT, AUTOMATED 290 10^3/uL (150-450); RED BLOOD COUNT 3.73 10^6/uL (4.00-5.40)
[2019-08-25 06:11] LABS: HEMOGLOBIN A1c 7.2 %
[2019-08-25 06:13] LABS: BLOOD UREA NITROGEN 10 MG/DL (7-18); CALCIUM LEVEL 8.2 MG/DL (8.8-10.2); CARBON DIOXIDE LEVEL 34 MEQ/L (21-32); CHLORIDE LEVEL 102 MEQ/L (98-107); CREATININE FOR GFR 0.72 MG/DL (0.55-1.30); GLOMERULAR FILTRATION RATE > 60.0 (>39); GLUCOSE, FASTING 109 MG/DL (70-100); POTASSIUM SERUM 3.7 MEQ/L (3.5-5.1); SODIUM LEVEL 139 MEQ/L (136-145)
[2019-08-25] MEDS: NYSTATIN OINTMENT 15 GM TOP SCH ×3 (09:00→20:48)
[2019-08-25] MEDS ORDERED: ENOXAPARIN 40 MG/0.4 ML SYRINGE (J1650) SC SCH (09:00)
[2019-08-25] MEDS: PANTOPRAZOLE 40MG TAB (PROTONIX) PO SCH (09:14)
[2019-08-25] MEDS: ACETAMINOPHEN TAB 650MG DOSE (2X325MG) PO PRN ×2 (09:14→23:18)
--- NOTE | 2019-08-25 12:18 | IPN ---
DATE: 08/25/2019 Trini was admitted with multiple problems including cellulitis of the abdominal wall/panniculitis related to intertrigo in her perineal fold. She also has an acute pulmonary embolism in the right lower lobe. She was on chronic anticoagulant therapy as an outpatient, was interrupted because of hematuria. She has a history of gastroesophageal reflux disease (GERD), morbid obesity. She has been having some paresthesias in the hands and feet that we are going to workup while she is here as well. PHYSICAL EXAMINATION: Afebrile. Vital signs stable. Saturation 94%. General Appearance: Alert, conversant in no distress. Lungs clear. Heart regular rate and rhythm. Abdomen is soft. She has erythema in the lower abdominal wall and suprapubic area with redness deep in her skin folds. She has chronic edema of both legs which is unchanged. LABS: White count 12, hemoglobin 10.7, platelets 290. Sodium 139, potassium 3.7, BUN 10, creatinine 0.7, glucose 109, lipase a little high at 440. IMPRESSION: 1. Acute pulmonary embolism right lower lobe: Restart anticoagulant therapy with Xarelto, which I do not think was started on admission. She is not on therapeutic dose of Lovenox currently. She is just on deep venous thrombosis (DVT) prophylaxis, so we will restart her Xarelto immediately 50 mg twice a day for 21 days. Then she will go back to 20 mg daily. If she has hematuria, we will have a urologist see her. 2. Abdominal wall cellulitis: She is on vancomycin and doxycycline. She is allergic to cephalosporins which limits treatment as we cannot use cefazolin or ceftaroline. So we will continue her regimen for how. She needs some nystatin ointment for her intertrigo. 3. Paresthesias hands and feet: B12, folate, Free T4, TSH. 4. Hematuria: Her bladder and kidneys were unremarkable on imaging. If hematuria recurs, she will need a urologist for a cystoscopy. 5. Anemia: She is chronically anemic. . Her hemoglobin dropped a bit. Will do stool for occult blood. Anticipate patient being in the hospital for at least 2 or 3 more days.
[2019-08-25 12:36] LABS: FOLATE 18.9 NG/ML (>5.4); FREE T4 1.17 NG/DL (0.76-1.46); VITAMIN B12 LEVEL > 2000 PG/ML (247-911)
[2019-08-25] MEDS: RIVAROXABAN 15 MG TAB (XARELTO) PO SCH ×2 (13:13→20:48)
[2019-08-25 14:00] VITALS: BP 106/65
[2019-08-25 20:30] VITALS: BP 110/71
[2019-08-25] MEDS: traMADol ER 100MG TABLET (ULTRAM ER) PO SCH (20:48)
[2019-08-26] MEDS: VANCOMYCIN HCL 1,000 MG, VIAL MATE ADAPTER 1 EACH in D5W 250 ML IV SCH ×4 (05:58→22:48)
[2019-08-26 06:00] VITALS: BP 143/77
[2019-08-26 06:28] LABS: BASO # 0.1 10^3/uL (0.0-0.2); BASO % 0.7 % (0.0-1.0); EOS # 0.3 10^3/uL (0.0-0.5); EOS % 2.7 % (0.0-3.0); HEMATOCRIT 37.1 % (36.0-47.0); HEMOGLOBIN 11.1 g/dl (12.0-15.5); LYMPH # 2.2 10^3/uL (1.5-5.0); LYMPH % 19.2 % (24.0-44.0); MEAN CORPUSCULAR HEMOGLOBIN 29.1 pg (27.0-33.0); MEAN CORPUSCULAR HGB CONC 29.9 g/dl (32.0-36.5); MEAN CORPUSCULAR VOLUME 97.4 fl (80.0-96.0); MONO # 0.9 10^3/uL (0.0-0.8); MONO % 8.3 % (0.0-5.0); NEUTROPHILS # 7.7 10^3/uL (1.5-8.5); NEUTROPHILS % 68.6 % (36.0-66.0); PLATELET COUNT, AUTOMATED 358 10^3/uL (150-450); RED BLOOD COUNT 3.81 10^6/uL (4.00-5.40); WHITE BLOOD COUNT 11.2 10^3/uL (4.0-10.0)
[2019-08-26 06:55] LABS: ALBUMIN 2.9 GM/DL (3.2-5.2); ALT/SGPT 16 U/L (12-78); BILIRUBIN,TOTAL 0.4 MG/DL (0.2-1.0); BLOOD UREA NITROGEN 10 MG/DL (7-18); CALCIUM LEVEL 8.9 MG/DL (8.8-10.2); CARBON DIOXIDE LEVEL 35 MEQ/L (21-32); CHLORIDE LEVEL 101 MEQ/L (98-107); CREATININE FOR GFR 0.74 MG/DL (0.55-1.30); GLOMERULAR FILTRATION RATE > 60.0 (>39); GLUCOSE, FASTING 154 MG/DL (70-100); POTASSIUM SERUM 4.3 MEQ/L (3.5-5.1); SODIUM LEVEL 138 MEQ/L (136-145); TOTAL PROTEIN 7.3 GM/DL (6.4-8.2)
[2019-08-26] MEDS: RIVAROXABAN 15 MG TAB (XARELTO) PO SCH ×2 (09:48→17:08)
[2019-08-26] MEDS: PANTOPRAZOLE 40MG TAB (PROTONIX) PO SCH (09:48)
[2019-08-26] MEDS: NYSTATIN OINTMENT 15 GM TOP SCH (09:49)
[2019-08-26] MEDS: MOM 30ML SUSPENSION UDC PO PRN (09:55)
[2019-08-26] MEDS: ACETAMINOPHEN TAB 650MG DOSE (2X325MG) PO PRN ×2 (13:41→20:23)
[2019-08-26 14:00] VITALS: BP 138/66
[2019-08-26] MEDS: DOXYCYCLINE HYCLATE 100 MG TAB PO SCH ×2 (14:37→20:21)
--- NOTE | 2019-08-26 16:01 | IPNPDOC ---
Text Note Date of Service The patient was seen on 08/26/19. NOTE Ms. Zayas was seen this morning and reports some improvement in her abdominal pain related to her cellulitis. She did states she had a headache overnight that was responsive to acetaminophen. She states that she is eat well and is able to use the bathroom however she does state that she is experiencing dyspnea when moving to-and-from the bathroom. She denies change in vision/hearing, fevers, chills, chest pain, SOB, and abdominal pain other than that of her cellulitis. Physical Exam: General: Obese female laying in bed, asleep in no apparent distress HEENT: Normocephalic and Atraumatic. No throat swelling or scleral icterus noted CV: Grade 2/6 systolic murmur noted at the L upper sternal border. RRR with no rubs, gallops, knocks noted. +S1, S2 Respiratory: Mild expiratory wheezing noted in lower right lung . Otherwise unremarkable with vesicular breath sounds heard throughout. Not tachypneic. Abdominal: Obese abdomen. The cellulitic area under her pannus in the suprapubic region is noticeably inflamed and pt guards when palpated in the area. There is large mildly erythematous patch with maceration noted under her abdominal skin folds. + BS in all four quadrants. Extremities: Stasis dermatitis in B/L LE with marked nonpitting edema in both legs. Pt guards and jumps when her left calf is palpated and squeezed. Assessment and Plan: This is a 73 year old female with a PMHx of PE, Obesity, GERD who was diagnosed with panniculitis and is currently receiving Vancomycin antibiotic therapy #Panniculitis: -The subpannicular cellulitis appears actively inflamed and is extremely tender to soft palpation -Continue Vancomycin IV -(re)start Doxycycline 100 mg PO BID -WBC is stable around 10-12 -CRP will be trended and was noted to be lower today (12.6) than on at admission (14.2) #PE: -Patient has a hx of PE and stopped her Xarelto for 4 weeks prior to admission after having episodes of hematuria -CT on admission shows acute PE -SaO2 is stable between 88-92% on 1L Nasal Cannula -Continue Xarelto 15 mg BID PO #Intertrigo: -Mild/moderate intertrigo, probably Candidal, noted under her abdominal skin folds -Switch Nystatin from ointment to powder form to maintain a dry environment #Hx of GERD -Continue PPI therapy VS,Fishbone, I+O VS, Fishbone, I+O Laboratory Tests 08/26/19 06:12 Vital Signs Date Time Temp Pulse Resp B/P (MAP) Pulse Ox O2 Delivery O2 Flow Rate FiO2 08/26/19 14:00 98.2 87 19 138/66 (90) 92 Nasal Cannula 1.0 I&O- Last 24 Hours up to 6 AM 08/26/19 05:59 Intake Total 2082 ml Output Total 400 ml Balance 1682 ml GME ATTESTATION ATTENDING NOTE I was present on site to supervise TEA Hyatt III. I independently spoke with and examined Ms. Zayas. I agree with his note as above. (employee benefits coordinator) LORIN HUDSON-3 Aug 26, 2019 15:37 Julian Vu MD Aug 26, 2019 17:59
[2019-08-26] MEDS: NYSTATIN 100,000 UNITS/GM TOPICAL PWD 15 GM TOP SCH ×2 (17:08→20:21)
[2019-08-26 20:00] VITALS: BP 147/80
[2019-08-26] MEDS ORDERED: ALBUTEROL SULFATE 2.5 MG/0.5 ML INH NEB SOLN INH PRN (20:45)
[2019-08-26 22:00] VITALS: BP 143/82
[2019-08-26] MEDS: SENOKOT S TAB PO PRN (22:48)
[2019-08-26] MEDS: traMADol ER 100MG TABLET (ULTRAM ER) PO SCH (22:48)
[2019-08-27] MEDS: ACETAMINOPHEN TAB 650MG DOSE (2X325MG) PO PRN ×3 (00:27→23:02)
[2019-08-27 06:00] VITALS: BP 149/83
[2019-08-27 06:02] LABS: BLOOD UREA NITROGEN 7 MG/DL (7-18); CARBON DIOXIDE LEVEL 37 MEQ/L (21-32); CHLORIDE LEVEL 100 MEQ/L (98-107); GLOMERULAR FILTRATION RATE > 60.0 (>39); GLUCOSE, FASTING 121 MG/DL (70-100); POTASSIUM SERUM 4.7 MEQ/L (3.5-5.1); SODIUM LEVEL 138 MEQ/L (136-145); VANCOMYCIN LEVEL TROUGH 18.2 UG/ML (10.0-20.0)
[2019-08-27] MEDS: VANCOMYCIN HCL 1,000 MG, VIAL MATE ADAPTER 1 EACH in D5W 250 ML IV SCH ×3 (06:22→23:01)
[2019-08-27] MEDS: MOM 30ML SUSPENSION UDC PO PRN (07:01)
[2019-08-27] MEDS: DOXYCYCLINE HYCLATE 100 MG TAB PO SCH ×2 (08:52→21:01)
[2019-08-27] MEDS: PANTOPRAZOLE 40MG TAB (PROTONIX) PO SCH (08:52)
[2019-08-27] MEDS: RIVAROXABAN 15 MG TAB (XARELTO) PO SCH ×2 (08:52→17:13)
[2019-08-27] MEDS: NYSTATIN 100,000 UNITS/GM TOPICAL PWD 15 GM TOP SCH ×4 (08:53→21:02)
[2019-08-27 13:09] LABS: BASO # 0.1 10^3/uL (0.0-0.2); BASO % 0.6 % (0.0-1.0); EOS # 0.3 10^3/uL (0.0-0.5); EOS % 2.6 % (0.0-3.0); HEMATOCRIT 35.9 % (36.0-47.0); HEMOGLOBIN 10.4 g/dl (12.0-15.5); LYMPH # 1.7 10^3/uL (1.5-5.0); MEAN CORPUSCULAR HEMOGLOBIN 28.8 pg (27.0-33.0); MEAN CORPUSCULAR VOLUME 99.4 fl (80.0-96.0); MONO # 0.9 10^3/uL (0.0-0.8); MONO % 8.7 % (0.0-5.0); NEUTROPHILS # 7.6 10^3/uL (1.5-8.5); NEUTROPHILS % 71.6 % (36.0-66.0); PLATELET COUNT, AUTOMATED 355 10^3/uL (150-450); RED BLOOD COUNT 3.61 10^6/uL (4.00-5.40); WHITE BLOOD COUNT 10.6 10^3/uL (4.0-10.0)
[2019-08-27 14:00] VITALS: BP 157/67
--- NOTE | 2019-08-27 17:06 | IPNPDOC ---
Subjective Date Seen The patient was seen on 08/27/19. Subjective Chief Complaint/HPI Aubree reports she is feeling a little bit better today. The area of cellulitis remains quite tender but is improving slowly. She feels that the yeast infection under her abdominal fold is doing better with the nystatin powder. She is discouraged that she started having blood in her urine again. She wonders whether she should be on anticoagulation because of it. I reminded her that she now has a blood clot in her lung because she stopped it; I strongly recommend she remain on anticoagulation. General: Reports: Normal Appetite Constitutional: Denies: Chills, Fever Pulmonary: Denies: Dyspnea, Cough Cardiovascular: Denies: Chest Pain, Palpitations Genitourinary: Reports: Hematuria; Denies: Dysuria Psych: Reports: Mood Normal Objective Physical Examination General Exam: Positive: Alert, Cooperative, No Acute Distress (she is reclining in her bedside chair watching television when I entered the room) Eye Exam: Positive: Conjunctiva & lids normal; Negative: Sclera icteric ENT Exam: Positive: Mucous membr. moist/pink Neck Exam: Positive: Supple; Negative: Lymphadenopathy Chest Exam: Positive: Clear to auscultation, Diminished (secondary to extrinsic restriction from the weight of her chest wall) Heart Exam: Positive: Rate Normal, Normal S1, Normal S2; Negative: Murmurs Abdomen Exam: Positive: Normal bowel sounds, Soft, Other (the area of suprapubic cellulitis remains quite tender, but is slightly less tense than it was yesterday. It is still very erythematous.) Extremity Exam: Negative: Edema Psych Exam: Positive: Mood NL, Oriented x 3 Assessment /Plan Problems (1) Cellulitis of suprapubic region Status: Acute Response to Treatment: Improving Discussed With: Nurse, Patient Problem Specific Plan: Monitor Clinically, Repeat Labs Problem Text: She is making slow progress, but is improving. Continue current regimen, monitor. (2) Pulmonary emboli Status: Acute Response to Treatment: Improving Problem Text: She is still dyspneic when she moves around. She needs to remain on Xarelto, which she had decided to stop on her own recently. (3) Hematuria Problem Text: Unfortunately when we resumed her Xarelto she began having hematuria again. Because she has a recent PE, and probably DVT as well but we simply have looked because it wouldn't change treatment, she needs to remain on the anticoagulant. I think we probably should consult urology tomorrow for further evaluation of the hematuria to see if there are any medication strategies they can use. If not managed to coordinate with them with regards to changing the direct acting oral anticoagulant if that would be beneficial. However, she cannot come off the anticoagulant entirely. (4) Candidal intertrigo Status: Acute Response to Treatment: Improving Problem Text: Her intertrigo seems to be improving with the change from nystatin cream to powder. History of the nystatin cream tends to penetrate better than the powder, however, when an area is is moist as her subpannicular region is, moisture control is more important than skin penetration. (5) Morbid obesity with BMI of 50.0-59.9, adult Status: Chronic Problem Text: Her morbid obesity is complicating most of her medical problems at this point in time. (6) GERD (gastroesophageal reflux disease) Status: Chronic Problem Text: Continue her home medication. Plan/VTE VTE Prophylaxis Ordered?: Yes (Xarelto) VS, I&O, 24H, Fishbone Vital Signs/I&O Vital Signs Date Time Temp Pulse Resp B/P (MAP) Pulse Ox O2 Delivery O2 Flow Rate FiO2 08/27/19 14:00 97.9 78 18 157/67 (97) 88 Nasal Cannula 1.0 I&O- Last 24 Hours up to 6 AM 08/27/19 06:00 Intake Total 1810 ml Output Total 500 ml Balance 1310 ml Laboratory Data 24H LABS Laboratory Tests 2 08/27/19 05:11: Immature Granulocyte % (Auto) 0.5, Neutrophils (%) (Auto) 71.6H, Lymphocytes (%) (Auto) 16.0L, Monocytes (%) (Auto) 8.7H, Eosinophils (%) (Auto) 2.6, Basophils (%) (Auto) 0.6, Neutrophils # (Auto) 7.6, Lymphocytes # (Auto) 1.7, Monocytes # (Auto) 0.9H, Eosinophils # (Auto) 0.3, Basophils # (Auto) 0.1, Nucleated Red Blood Cells % (auto) 0.0 08/27/19 05:14: Anion Gap 1L, Glomerular Filtration Rate > 60.0, Calcium Level 9.0, C-Reactive Protein, Quantitative 10.10H, Vancomycin Level Trough 18.2 CBC/BMP Laboratory Tests 08/27/19 05:11 08/27/19 05:14 Microbiology Microbiology 08/25/19 Respiratory Virus Panel (PCR) ([facility]) - Final, Complete 08/24/19 Blood Culture - Preliminary, Resulted No Growth after 48 hours. All Specime... 08/24/19 Urine Culture - Final, Complete Klebsiella Pneumoniae 08/24/19 Blood Culture - Preliminary, Resulted No Growth after 48 hours. All Specime... Julian Vu MD Aug 27, 2019 5:06 pm
[2019-08-27] MEDS: traMADol ER 100MG TABLET (ULTRAM ER) PO SCH (21:01)
[2019-08-27] MEDS: SENOKOT S TAB PO PRN (21:02)
[2019-08-27 22:00] VITALS: BP 152/70
[2019-08-28 06:00] VITALS: BP 154/68
[2019-08-28 06:09] LABS: BASO # 0.1 10^3/uL (0.0-0.2); BASO % 0.6 % (0.0-1.0); EOS # 0.3 10^3/uL (0.0-0.5); EOS % 2.5 % (0.0-3.0); HEMATOCRIT 36.7 % (36.0-47.0); HEMOGLOBIN 10.9 g/dl (12.0-15.5); LYMPH # 1.8 10^3/uL (1.5-5.0); LYMPH % 17.3 % (24.0-44.0); MEAN CORPUSCULAR HEMOGLOBIN 28.9 pg (27.0-33.0); MEAN CORPUSCULAR HGB CONC 29.7 g/dl (32.0-36.5); MEAN CORPUSCULAR VOLUME 97.3 fl (80.0-96.0); MONO % 9.1 % (0.0-5.0); NEUTROPHILS # 7.3 10^3/uL (1.5-8.5); NEUTROPHILS % 69.9 % (36.0-66.0); PLATELET COUNT, AUTOMATED 374 10^3/uL (150-450); RED BLOOD COUNT 3.77 10^6/uL (4.00-5.40); WHITE BLOOD COUNT 10.5 10^3/uL (4.0-10.0)
[2019-08-28] MEDS: VANCOMYCIN HCL 1,000 MG, VIAL MATE ADAPTER 1 EACH in D5W 250 ML IV SCH (06:24)
[2019-08-28 06:28] LABS: BLOOD UREA NITROGEN 9 MG/DL (7-18); CARBON DIOXIDE LEVEL 39 MEQ/L (21-32); CHLORIDE LEVEL 99 MEQ/L (98-107); CREATININE FOR GFR 0.73 MG/DL (0.55-1.30); GLOMERULAR FILTRATION RATE > 60.0 (>39); GLUCOSE, FASTING 115 MG/DL (70-100); POTASSIUM SERUM 4.1 MEQ/L (3.5-5.1); SODIUM LEVEL 140 MEQ/L (136-145)
[2019-08-28] MEDS: NYSTATIN 100,000 UNITS/GM TOPICAL PWD 15 GM TOP SCH ×4 (08:35→20:29)
[2019-08-28] MEDS: DOXYCYCLINE HYCLATE 100 MG TAB PO SCH (08:35)
[2019-08-28] MEDS: PANTOPRAZOLE 40MG TAB (PROTONIX) PO SCH (08:35)
[2019-08-28] MEDS: RIVAROXABAN 15 MG TAB (XARELTO) PO SCH ×2 (08:35→17:35)
--- NOTE | 2019-08-28 11:43 | IPNPDOC ---
Subjective Date Seen The patient was seen on 08/28/19. Subjective Chief Complaint/HPI Pt this morning without new concerns. She states that her pelvic area remains quite tender. She denies fevers or chills. General: Denies: Fatigue Constitutional: Denies: Chills, Fever Pulmonary: Denies: Dyspnea, Cough Cardiovascular: Denies: Chest Pain, Palpitations Gastrointestinal: Denies: Nausea, Vomiting, Diarrhea Neurological: Denies: Weakness Psych: Reports: Mood Normal Objective Physical Examination General Exam: Positive: Alert, Cooperative, No Acute Distress (she is reclining in her bedside chair watching television when I entered the room) Eye Exam: Negative: Sclera icteric Neck Exam: Positive: Supple; Negative: Lymphadenopathy Chest Exam: Positive: Clear to auscultation, Diminished (secondary to extrinsic restriction from the weight of her chest wall) Heart Exam: Positive: Rate Normal, Normal S1, Normal S2; Negative: Murmurs Abdomen Exam: Positive: Normal bowel sounds, Soft, Other (the area of suprapubic cellulitis remains quite tender, but is slightly less tense than it was yesterday. It is still very erythematous.) Extremity Exam: Negative: Edema Psych Exam: Positive: Mood NL, Oriented x 3 Assessment /Plan Problems (1) Hydronephrosis Status: Acute Problem Text: 08/27 reassess hydro, favor R nephro tube outpx ESWL 08/23 CT AP: IMPRESSION: Perineal subcutaneous varices with skin thickening and fat stranding representing cellulitis. No fluid collections. Calculus in the right renal pelvis measuring 1.3 cm with mild right hydronephrosis. (2) Cellulitis of suprapubic region Status: Acute Response to Treatment: Improving Discussed With: Nurse, Patient Problem Specific Plan: Monitor Clinically, Repeat Labs Problem Text: D5 vanco IV/macro D1/5 PCN/cephalo/cipro allergy 08/27 AF since 08/23, WBC 10.5 (08/23 12.1, baseline ~9), CRP 9 (14); dc doxy (not sure why on), + macro for UTI/gross hematuria (which she tolerated per eCW in past) 08/24 RP - 08/23 BCX2 NG 08/23 CT AP: IMPRESSION: Perineal subcutaneous varices with skin thickening and fat stranding representing cellulitis. No fluid collections. Calculus in the right renal pelvis measuring 1.3 cm with mild right hydronephrosis. (3) Pulmonary emboli Status: Acute Response to Treatment: Improving Problem Text: Continue rivarox 15 BID load 08/23 CTA chest: IMPRESSION: Small acute pulmonary embolism in the right lower lobe segmental branch. (4) Hematuria Problem Text: 08/27 Will consult Uro this morning. 08/26 Unfortunately when we resumed her Xarelto she began having hematuria again. Because she has a recent PE, and probably DVT as well but we simply have looked because it wouldn't change treatment, she needs to remain on the anticoagulant. I think we probably should consult urology tomorrow for further evaluation of the hematuria to see if there are any medication strategies they can use. If not managed to coordinate with them with regards to changing the direct acting oral anticoagulant if that would be beneficial. However, she cannot come off the anticoagulant entirely. (5) Candidal intertrigo Status: Acute Response to Treatment: Improving Problem Text: Her intertrigo seems to be improving with the change from nystatin cream to powder. History of the nystatin cream tends to penetrate better than the powder, however, when an area is is moist as her subpannicular region is, moisture control is more important than skin penetration. (6) Morbid obesity with BMI of 50.0-59.9, adult Status: Chronic Problem Text: Her morbid obesity is complicating most of her medical problems at this point in time. (7) GERD (gastroesophageal reflux disease) Status: Chronic Problem Text: Continue her home medication. (8) UTI (urinary tract infection) Status: Acute Response to Treatment: Stable Problem Specific Plan: Consult Specialist Problem Text: rx as per cellulitis 08/23 UCX: Organism 1 KLEBSIELLA PNEUMONIAE COLONY COUNT >100,000 CFU/ml FULL REPORT IN LAB NOTES (eCW and Medent). 1. KLEBSIELLA PNEUMONIAE RX Route Dose M.I.C. ----- ----- --------- TRIMETHOPRIM/SULFAMETHOXAZOLE S PO Bactrim DS Bid <=20 S IV 160mg TMP & 800mg SMXq6h AMPICILLIN R PO 500mg q6h fasting 16 R IV 500mg q6h GENTAMICIN S IV 80mg q8h <=1 NITROFURANTOIN S PO 100mg BID <=16 CEFAZOLIN S IV 1gm q8h <=4 LEVOFLOXACIN S PO 250mg qd <=0.12 S PO 500mg qd S IV 500mg qd TOBRAMYCIN S IV 80mg q8h <=1 CEFTRIAXONE S IV 1gm q24h <=1 CEFTAZIDIME S IV 1gm q8h <=1 AMPICILLIN/SULBACTAM S IV 1.5g q6h <=2 PIPERACILLIN/TAZOBACTAM S IV 2.25 gm q6h <=4 AZTREONAM S IV 1gm q8h <=1 ERTAPENEM S IV 1gm qd <=0.5 MEROPENEM S IV 1 gm q8h <=0.25 S IV 500 mg q8h TIGECYCLINE S IV 50mg q12h <=0.5 CEFEPIME S IV 1 gm q12h <=1 S IV 2 gm q12h EXTD BRD SPCTRM BETA LACTAMASE - (9) Physical deconditioning Status: Acute Problem Text: 08/27 NS to dc home Plan/VTE VTE Prophylaxis Ordered?: Yes (Xarelto) VS, I&O, 24H, Fishbone Vital Signs/I&O Vital Signs Date Time Temp Pulse Resp B/P (MAP) Pulse Ox O2 Delivery O2 Flow Rate FiO2 08/28/19 09:00 1.0 08/28/19 06:00 96.7 77 22 154/68 (96) 91 Nasal Cannula I&O- Last 24 Hours up to 6 AM 08/28/19 06:00 Intake Total 1930 ml Output Total 675 ml Balance 1255 ml Laboratory Data 24H LABS Laboratory Tests 2 08/28/19 05:05: Immature Granulocyte % (Auto) 0.6, Neutrophils (%) (Auto) 69.9H, Lymphocytes (%) (Auto) 17.3L, Monocytes (%) (Auto) 9.1H, Eosinophils (%) (Auto) 2.5, Basophils (%) (Auto) 0.6, Neutrophils # (Auto) 7.3, Lymphocytes # (Auto) 1.8, Monocytes # (Auto) 1.0H, Eosinophils # (Auto) 0.3, Basophils # (Auto) 0.1, Nucleated Red Blood Cells % (auto) 0.2H, Anion Gap 2L, Glomerular Filtration Rate > 60.0, Calcium Level 9.0, C-Reactive Protein, Quantitative 8.90H CBC/BMP Laboratory Tests 08/28/19 05:05 Microbiology Microbiology 08/25/19 Respiratory Virus Panel (PCR) ([facility]MA) - Final, Complete 08/24/19 Blood Culture - Preliminary, Resulted No Growth after 72 hours. All specime... 08/24/19 Urine Culture - Final, Complete Klebsiella Pneumoniae 08/24/19 Blood Culture - Preliminary, Resulted No Growth after 72 hours. All specime... TRENT ESPINOZA PA-C Aug 28, 2019 11:43 Gerson Mtz M.D. Aug 28, 2019 18:34
[2019-08-28 14:00] VITALS: BP_SYST 157; BP_SYST 158; BP_DIAS 66; BP_DIAS 74
[2019-08-28] MEDS: VANCOMYCIN HCL 750 MG, VIAL MATE ADAPTER 1 EACH in D5W 250 ML IV SCH (14:17)
[2019-08-28] MEDS: VANCOMYCIN HCL 500 MG in D5W MINI-BAG PLUS 100 ML IV SCH (15:35)
[2019-08-28] MEDS: traMADol ER 100MG TABLET (ULTRAM ER) PO SCH (20:29)
[2019-08-28] MEDS: NITROFURANTOIN (MACROBID) 100 MG CAP PO SCH (20:29)
[2019-08-28 22:00] VITALS: BP 156/81
--- NOTE | 2019-08-28 22:24 | REPVR ---
PROCEDURE INFORMATION: Exam: US Retroperitoneal Limited, Kidneys Exam date and time: 08/28/19 (9:22pm) Age: 73 years old Clinical indication: Right hydronephrosis TECHNIQUE: Imaging protocol: Real-time ultrasound of the retroperitoneum with image documentation. Examination was focused on the kidneys. COMPARISON: CT ABDOMEN PELVIS of 08/24/19 FINDINGS: Kidneys and general anatomy are not well seen due to large body habitus. RIGHT KIDNEY --- The right kidney measures 10.8 cm in length. No obious hydronephrosis nor mass. Ovoid echogenic stone seen (16 x 16 mm size), mid portion of right kidney LEFT KIDNEY --- The left kidney measures 12.9 cm in length. No hydronephrosis nor mass. No upper tract stones are identified. URINARY BLADDER --- Not visualized (bladder emptied before the examination) IMPRESSION: Technically difficult study due to large patient size. Each kidney is normal in size. No obvious hydronephrosis. Ovoid echogenic stone (16 x 16 mm size) at the midpole region of the right kidney. This corresponds to a large right renal pelvic stone (14 x 10 mm size) seen on recent CT scan. Right renal pelvic fullness seen on recent CT scan. Electronically signed by: Denise Mtz On 08/28/2019 22:24:52 PM
[2019-08-29] MEDS: VANCOMYCIN HCL 750 MG, VIAL MATE ADAPTER 1 EACH in D5W 250 ML IV SCH ×2 (02:14→14:00)
[2019-08-29] MEDS: VANCOMYCIN HCL 500 MG in D5W MINI-BAG PLUS 100 ML IV SCH ×2 (03:31→14:09)
[2019-08-29] MEDS ORDERED: HYALURONIDASE (150 UNIT/ML) SQ (pinwheel) SQ ONE (05:30)
[2019-08-29 06:00] VITALS: BP 130/73
[2019-08-29 06:34] LABS: BASO # 0.1 10^3/uL (0.0-0.2); BASO % 0.8 % (0.0-1.0); EOS # 0.3 10^3/uL (0.0-0.5); EOS % 3.2 % (0.0-3.0); HEMATOCRIT 37.8 % (36.0-47.0); HEMOGLOBIN 11.1 g/dl (12.0-15.5); LYMPH # 1.6 10^3/uL (1.5-5.0); LYMPH % 17.1 % (24.0-44.0); MEAN CORPUSCULAR HEMOGLOBIN 28.5 pg (27.0-33.0); MEAN CORPUSCULAR HGB CONC 29.4 g/dl (32.0-36.5); MEAN CORPUSCULAR VOLUME 96.9 fl (80.0-96.0); MONO # 0.9 10^3/uL (0.0-0.8); MONO % 10.2 % (0.0-5.0); NEUTROPHILS # 6.3 10^3/uL (1.5-8.5); PLATELET COUNT, AUTOMATED 393 10^3/uL (150-450); WHITE BLOOD COUNT 9.2 10^3/uL (4.0-10.0)
[2019-08-29 06:51] LABS: BLOOD UREA NITROGEN 8 MG/DL (7-18); C REACTIVE PROTEIN QUANTITATIV 7.17 MG/DL (0.00-0.30); CALCIUM LEVEL 9.3 MG/DL (8.8-10.2); CARBON DIOXIDE LEVEL 41 MEQ/L (21-32); CHLORIDE LEVEL 99 MEQ/L (98-107); CREATININE FOR GFR 0.72 MG/DL (0.55-1.30); GLOMERULAR FILTRATION RATE > 60.0 (>39); GLUCOSE, FASTING 115 MG/DL (70-100); POTASSIUM SERUM 4.1 MEQ/L (3.5-5.1); SODIUM LEVEL 139 MEQ/L (136-145)
[2019-08-29] MEDS: RIVAROXABAN 15 MG TAB (XARELTO) PO SCH ×2 (09:27→17:52)
[2019-08-29] MEDS: NITROFURANTOIN (MACROBID) 100 MG CAP PO SCH ×2 (09:27→20:24)
[2019-08-29] MEDS: NYSTATIN 100,000 UNITS/GM TOPICAL PWD 15 GM TOP SCH ×4 (09:27→20:33)
[2019-08-29] MEDS: PANTOPRAZOLE 40MG TAB (PROTONIX) PO SCH (09:27)
[2019-08-29] MEDS: SENOKOT S TAB PO PRN (10:16)
[2019-08-29] MEDS: MOM 30ML SUSPENSION UDC PO PRN (10:16)
--- NOTE | 2019-08-29 13:56 | IPNPDOC ---
Subjective Date Seen The patient was seen on 08/29/19. Subjective Chief Complaint/HPI no new co Constitutional: Denies: Chills, Fever Eyes: Denies: Pain ENT: Denies: Head Aches Skin: Denies: Rash Pulmonary: Denies: Dyspnea, Cough Cardiovascular: Denies: Chest Pain, Palpitations Gastrointestinal: Denies: Nausea, Vomiting Objective Physical Examination General Exam: Positive: Alert, Cooperative, No Acute Distress (she is reclining in her bedside chair watching television when I entered the room) Eye Exam: Negative: Sclera icteric Neck Exam: Positive: Supple; Negative: Lymphadenopathy Chest Exam: Positive: Clear to auscultation, Diminished (secondary to extrinsic restriction from the weight of her chest wall) Heart Exam: Positive: Rate Normal, Normal S1, Normal S2; Negative: Murmurs Abdomen Exam: Positive: Normal bowel sounds, Soft, Other (the area of suprapubic cellulitis remains quite tender, but is slightly less tense than it was yesterday. It is still very erythematous.) Extremity Exam: Negative: Edema Psych Exam: Positive: Mood NL, Oriented x 3 Assessment /Plan Problems (1) Nephrolithiasis Status: Chronic Response to Treatment: Stable Problem Text: favor outpx ESWL-follows c Dr. Martinez (previous [facility] Uro for stones) 08/27 renal US: IMPRESSION: Technically difficult study due to large patient size. Each kidney is normal in size. No obvious hydronephrosis. Ovoid echogenic stone (16 x 16 mm size) at the midpole region of the right kidney. This corresponds to a large right renal pelvic stone (14 x 10 mm size) seen on recent CT scan. Right renal pelvic fullness seen on recent CT scan. 08/23 CT AP: IMPRESSION: Perineal subcutaneous varices with skin thickening and fat stranding representing cellulitis. No fluid collections. Calculus in the right renal pelvis measuring 1.3 cm with mild right hydronephrosis. (2) Diastolic congestive heart failure Status: Acute Problem Text: +8L since 08/23 admission 08/28 + fur 40 IV BID, check TTE, requiring 2L O2 (3) Hydronephrosis Status: Acute (4) Cellulitis of suprapubic region Status: Acute Response to Treatment: Improving Discussed With: Nurse, Patient Problem Specific Plan: Monitor Clinically, Repeat Labs Problem Text: D1 linez (prior 5D vanco IV)/macro D2/5 PCN/cephalo/cipro allergy 08/28 AF, 9.2, CRP 7; lost IV access; therefore, changed to linez; tense fluctuant 5x 3 suprapubic area-may need ID, check US 08/27 AF since 08/23, WBC 10.5 (08/23 12.1, baseline ~9), CRP 9 (14); dc doxy (not sure why on), + macro for UTI/gross hematuria (which she tolerated per eCW in past) 08/24 RP - 08/23 BCX2 NG 08/23 CT AP: IMPRESSION: Perineal subcutaneous varices with skin thickening and fat stranding representing cellulitis. No fluid collections. Calculus in the right renal pelvis measuring 1.3 cm with mild right hydronephrosis. (5) Pulmonary emboli Status: Acute Response to Treatment: Improving Problem Text: Continue rivarox 15 BID load 08/23 CTA chest: IMPRESSION: Small acute pulmonary embolism in the right lower lobe segmental branch. (6) Hematuria Problem Text: no recurrence gross h-favor 2 AC and nephrolith if recurs, consult Uro inpx; otherwise, plan outpx thomson/rx 08/28 repeat UA/check cytology (7) Candidal intertrigo Response to Treatment: Improving Problem Text: Her intertrigo seems to be improving with the change from nystatin cream to powder. History of the nystatin cream tends to penetrate better than the powder, however, when an area is is moist as her subpannicular region is, moisture control is more important than skin penetration. (8) Morbid obesity with BMI of 50.0-59.9, adult Status: Chronic Problem Text: Her morbid obesity is complicating most of her medical problems at this point in time. (9) GERD (gastroesophageal reflux disease) Status: Chronic Problem Text: Continue her home medication. (10) UTI (urinary tract infection) Status: Acute Response to Treatment: Stable Problem Specific Plan: Consult Specialist Problem Text: rx as per cellulitis 08/23 UCX: Organism 1 KLEBSIELLA PNEUMONIAE COLONY COUNT >100,000 CFU/ml FULL REPORT IN LAB NOTES (eCW and Medent). 1. KLEBSIELLA PNEUMONIAE RX Route Dose M.I.C. ----- ----- --------- TRIMETHOPRIM/SULFAMETHOXAZOLE S PO Bactrim DS Bid <=20 S IV 160mg TMP & 800mg SMXq6h AMPICILLIN R PO 500mg q6h fasting 16 R IV 500mg q6h GENTAMICIN S IV 80mg q8h <=1 NITROFURANTOIN S PO 100mg BID <=16 CEFAZOLIN S IV 1gm q8h <=4 LEVOFLOXACIN S PO 250mg qd <=0.12 S PO 500mg qd S IV 500mg qd TOBRAMYCIN S IV 80mg q8h <=1 CEFTRIAXONE S IV 1gm q24h <=1 CEFTAZIDIME S IV 1gm q8h <=1 AMPICILLIN/SULBACTAM S IV 1.5g q6h <=2 PIPERACILLIN/TAZOBACTAM S IV 2.25 gm q6h <=4 AZTREONAM S IV 1gm q8h <=1 ERTAPENEM S IV 1gm qd <=0.5 MEROPENEM S IV 1 gm q8h <=0.25 S IV 500 mg q8h TIGECYCLINE S IV 50mg q12h <=0.5 CEFEPIME S IV 1 gm q12h <=1 S IV 2 gm q12h EXTD BRD SPCTRM BETA LACTAMASE - (11) Physical deconditioning Status: Acute Problem Text: 08/27 NS to dc home-plan dc home (12) Constipation Status: Chronic Problem Text: 08/28 acute on chronic (no BM in 7D) reducing FVC-+ PG, Mg citrate, Fleets Plan/VTE VTE Prophylaxis Ordered?: Yes (Xarelto) VS, I&O, 24H, Fishbone Vital Signs/I&O Vital Signs Date Time Temp Pulse Resp B/P (MAP) Pulse Ox O2 Delivery O2 Flow Rate FiO2 08/29/19 09:00 2.0 08/29/19 06:00 98.0 79 20 130/73 (92) 98 Nasal Cannula I&O- Last 24 Hours up to 6 AM 08/29/19 06:00 Intake Total 1990 ml Output Total 350 ml Balance 1640 ml Laboratory Data 24H LABS Laboratory Tests 2 08/29/19 06:08: Immature Granulocyte % (Auto) 0.7, Neutrophils (%) (Auto) 68.0H, Lymphocytes (%) (Auto) 17.1L, Monocytes (%) (Auto) 10.2H, Eosinophils (%) (Auto) 3.2H, Basophils (%) (Auto) 0.8, Neutrophils # (Auto) 6.3, Lymphocytes # (Auto) 1.6, Monocytes # (Auto) 0.9H, Eosinophils # (Auto) 0.3, Basophils # (Auto) 0.1, Nucleated Red Blood Cells % (auto) 0.2H, Anion Gap , Glomerular Filtration Rate > 60.0, Calcium Level 9.3, C-Reactive Protein, Quantitative 7.17H 08/29/19 13:17: CBC/BMP Laboratory Tests 08/29/19 06:08 Microbiology Microbiology 08/25/19 Respiratory Virus Panel (PCR) (ISMA) - Final, Complete 08/24/19 Blood Culture - Preliminary, Resulted No Growth after 72 hours. All specime... 08/24/19 Urine Culture - Final, Complete Klebsiella Pneumoniae 08/24/19 Blood Culture - Preliminary, Resulted No Growth after 72 hours. All specime... Gerson Mtz M.D. Aug 29, 2019 13:56
[2019-08-29 14:00] VITALS: BP 134/73
[2019-08-29] MEDS ORDERED: FLEET ENEMA PR PRN (14:15)
[2019-08-29] MEDS: MIRALAX *UNIT DOSE* 17GM PACKET PO SCH (14:29)
[2019-08-29] MEDS ORDERED: MAGNESIUM CITRATE 300 ML BTL PO ONE (14:30)
[2019-08-29] MEDS: FUROSEMIDE 40 MG/4 ML VIAL (J1940) IV SCH (15:43)
--- NOTE | 2019-08-29 16:03 | REP ---
REASON FOR EXAM: Known suprapubic abscess. PRIOR ULTRASOUND EXAM: None. Multiple ultrasonographic images of the pelvis were obtained in a limited fashion with concentration on the suprapubic area over erythematous skin. Seen in the region of interest there is a large dilated vessel having blood flow within it on color Doppler. There is no discernable abscess or abnormal collection of fluid. IMPRESSION: Large vessel seen in the soft tissues as described above which was in fact seen on prior abdominal and pelvic CT of 08/24/2019. There is no ultrasonographic evidence of an abscess at this time. Electronically Signed by Chetan Pineda DO 08/29/2019 04:34 P
[2019-08-29 18:39] LABS: APPEARANCE, URINE CLEAR (CLEAR); BACTERIA, URINE AUTO 1+ (NEGATIVE); BILIRUBIN, URINE AUTO NEGATIVE (NEGATIVE); BLOOD, URINE BLOOD 2+ (NEGATIVE); COLOR, URINE STRAW (YELLOW); GLUCOSE, URINE (UA) AUTO NEGATIVE (NEGATIVE); KETONE, URINE AUTO NEGATIVE (NEGATIVE); LEUKOCYTE ESTERASE, URINE AUTO NEGATIVE (NEGATIVE); NITRITE, URINE AUTO NEGATIVE (NEGATIVE); PROTEIN, URINE AUTO NEGATIVE (NEGATIVE); RBC, URINE AUTO 74 /HPF (0-3); SPECIFIC GRAVITY URINE AUTO 1.004 (1.002-1.035); SQUAMOUS EPITHELIAL CELL UR AU 4 /HPF (0-6); UROBILINOGEN, URINE AUTO 0.2 mg/dL (0.0-2.0); WBC, URINE AUTO 1 /HPF (0-3)
[2019-08-29] MEDS: traMADol ER 100MG TABLET (ULTRAM ER) PO SCH (20:23)
[2019-08-29] MEDS: LINEZOLID 600MG TABLET (ZYVOX) PO SCH (20:24)
[2019-08-29 22:00] VITALS: BP 140/80
[2019-08-30 06:00] VITALS: BP 150/81
[2019-08-30 06:09] LABS: BASO # 0.1 10^3/uL (0.0-0.2); BASO % 0.8 % (0.0-1.0); EOS # 0.3 10^3/uL (0.0-0.5); HEMATOCRIT 37.4 % (36.0-47.0); HEMOGLOBIN 11.1 g/dl (12.0-15.5); LYMPH # 0.9 10^3/uL (1.5-5.0); MEAN CORPUSCULAR HEMOGLOBIN 28.8 pg (27.0-33.0); MEAN CORPUSCULAR HGB CONC 29.7 g/dl (32.0-36.5); MEAN CORPUSCULAR VOLUME 97.1 fl (80.0-96.0); MONO # 0.9 10^3/uL (0.0-0.8); MONO % 9.9 % (0.0-5.0); NEUTROPHILS % 75.6 % (36.0-66.0); PLATELET COUNT, AUTOMATED 392 10^3/uL (150-450); RED BLOOD COUNT 3.85 10^6/uL (4.00-5.40); WHITE BLOOD COUNT 9.2 10^3/uL (4.0-10.0)
[2019-08-30 06:27] LABS: BLOOD UREA NITROGEN 13 MG/DL (7-18); C REACTIVE PROTEIN QUANTITATIV 7.68 MG/DL (0.00-0.30); CALCIUM LEVEL 8.8 MG/DL (8.8-10.2); CARBON DIOXIDE LEVEL 43 MEQ/L (21-32); CHLORIDE LEVEL 95 MEQ/L (98-107); GLOMERULAR FILTRATION RATE > 60.0 (>39); GLUCOSE, FASTING 123 MG/DL (70-100); MAGNESIUM LEVEL 2.6 MG/DL (1.8-2.4); NT-PRO BNP 43 PG/ML (<125); POTASSIUM SERUM 4.1 MEQ/L (3.5-5.1); SODIUM LEVEL 139 MEQ/L (136-145)
[2019-08-30] MEDS: RIVAROXABAN 15 MG TAB (XARELTO) PO SCH ×2 (08:00→17:49)
[2019-08-30] MEDS: LINEZOLID 600MG TABLET (ZYVOX) PO SCH ×2 (08:45→21:19)
[2019-08-30] MEDS: FUROSEMIDE 40 MG/4 ML VIAL (J1940) IV SCH ×2 (08:45→17:48)
[2019-08-30] MEDS: NITROFURANTOIN (MACROBID) 100 MG CAP PO SCH ×2 (08:45→21:19)
[2019-08-30] MEDS: PANTOPRAZOLE 40MG TAB (PROTONIX) PO SCH (08:45)
[2019-08-30] MEDS: MIRALAX *UNIT DOSE* 17GM PACKET PO SCH (08:45)
[2019-08-30] MEDS: NYSTATIN 100,000 UNITS/GM TOPICAL PWD 15 GM TOP SCH ×4 (08:46→21:20)
--- NOTE | 2019-08-30 09:39 | SMCUROLCON ---
Urology Consultation General Date of Consultation 08/30/19 Reason For Consultation This patient is seen for Cellulitis Of Suprapubic Region. History of Present Illness This is a 73 y/o F w/ a PMH significant for kidney stones, GERD, PE, and obesity, who was admitted to the hospital a few days ago for treatment of pelvic cellulitis. At the time of admission, she had a repeat CT chest that still showed a PE and she was started back on xarelto. After this she started having hematuria, and we were consulted for evaluation. Also of note a CT A/P done a few days ago was notable for a 1.3cm right UPJ stone w/ mild hydro. She notes that her hematuria has improved. She does have intermittent mild right flank discomfort. She was also diagnosed w/ a Klebsiella UTI, and she has been on macrobid for a few days for this. Past Medical History Medical History see HPI Surgical Hstory Ureteroscopy with laser lithotripsy Bladder suspension surgery Tubal ligation Hysterectomy Cholecystectomy Appendectomy Medications Current Medications Current Medications Medications (Trade) Dose Ordered Sig/Brie Route PRN Reason Start Time Stop Time Status Last Admin Dose Admin Acetaminophen (Tylenol Tab) 650 mg Q4HP PRN PO PAIN OR FEVER 08/25/19 09:15 08/27/19 23:02 Al Hydrox/Mg Hydrox/Simethicone (Mylanta) 30 ml DAILY PRN PO DYSPEPSIA 08/24/19 23:15 Albuterol Sulfate (Proventil Neb) 2.5 mg Q2HP PRN INH SOB/WHEEZING 08/26/19 20:45 Doxycycline Hyclate (Vibramycin) 100 mg BID PO 08/26/19 09:00 08/28/19 18:34 DC 08/28/19 08:35 Enoxaparin Sodium (Lovenox) 40 mg DAILY SC 08/25/19 09:00 08/25/19 12:28 DC 08/25/19 09:14 Furosemide (LASIX injection) 40 mg BID@,17 IV 08/29/19 15:00 08/30/19 08:45 Home Med (Med Rec Complete!) ASDIRECTED XX 08/24/19 18:45 08/24/19 18:39 DC Linezolid (Zyvox) 600 mg BID PO 08/29/19 21:00 08/30/19 08:45 Magnesium Hydroxide (Milk Of Magnesia) 30 ml DAILY PRN PO CONSTIPATION 08/24/19 23:15 08/29/19 10:16 Nitrofurantoin Monoh/Nitrofur Macro (Macrobid) 100 mg BID PO 08/28/19 21:00 08/30/19 08:45 Nystatin (Mycostatin Powder, Nystop) QID TOP 08/26/19 17:00 08/30/19 08:46 Nystatin (Mycostatin) APPLY TO LOWER GROIN AREA TID TOP 08/25/19 09:00 08/26/19 14:40 DC 08/26/19 09:49 Pantoprazole Sodium (Protonix) 40 mg DAILY PO 08/25/19 09:00 08/30/19 08:45 Polyethylene Glycol (Miralax) 1 pkt DAILY PO 08/29/19 09:00 08/30/19 08:45 Rivaroxaban (Xarelto) 15 mg BID@08,18 PO 08/26/19 08:00 08/29/19 17:52 Rivaroxaban (Xarelto) 15 mg BID@1300,2100 PO 08/25/19 13:00 08/25/19 21:01 DC 08/25/19 20:48 Senna/Docusate Sodium (Senokot S) 1 tab QHSP PRN PO CONSTIPATION 08/26/19 20:45 08/29/19 10:16 Sodium Biphosphate/ Sodium Phosphate (Fleet Enema) 1 ea DAILYPRN PRN ND CONSTIPATION 08/29/19 14:15 Tramadol HCl (Ultram Er) 200 mg QHS PO 08/24/19 21:00 08/29/19 20:23 Vancomycin HCl 500 mg/Dextrose 110 ml @ 110 mls/hr Q12H IV 08/28/19 15:00 08/29/19 14:12 DC 08/29/19 03:31 Vancomycin HCl 750 mg/IV Miscellaneous Supplies 1 each/ Dextrose 275 ml @ 275 mls/hr Q12H IV 08/28/19 14:00 08/29/19 14:12 DC 08/29/19 02:14 Vancomycin HCl 1000 mg/IV Miscellaneous Supplies 1 each/ Dextrose 270 ml @ 270 mls/hr Q8H IV 08/25/19 06:00 08/28/19 13:11 DC 08/28/19 06:24 Allergies Allergies: Coded Allergies: Cephalosporins (Verified Allergy, Unknown, rash, 08/24/19) Penicillins (Verified Allergy, Unknown, makes me break out in convulsions, 08/24/19) aspirin (Verified Allergy, Unknown, my mother told me, I don't know, 08/24/19) atorvastatin (Verified Allergy, Unknown, myalgia, 08/24/19) ciprofloxacin (Verified Allergy, Unknown, rash, 08/24/19) pravastatin (Verified Allergy, Unknown, myalgia, 08/24/19) Review of Systems General: Denies: Chills, Night Sweats Pulmonary: Reports: Other Symptoms; Denies: Cough, Pleuritic Chest Pain Cardiovascular: Denies Chest Pain, Denies Palpitations; Reports Orthopnea Genitourinary: Reports: Hematuria Musculoskeletal: Reports: Back Pain (mild right flank pain) Psych: Reports: Mood Normal Physical Examination General Exam: Alert, Cooperative, No Acute Distress Chest Exam: Normal air movement Heart Exam: Rate Normal Abdomen Exam: Soft, Other (suprapubic redness; mild to moderate tenderness; no active drainage) Skin Exam: Nl turgor and temperature Psych Exam: Mental status NL, Mood NL Vital Signs/I&O Vital Signs Date Time Temp Pulse Resp B/P (MAP) Pulse Ox O2 Delivery O2 Flow Rate FiO2 08/30/19 06:00 98.3 84 20 150/81 (104) 96 Nasal Cannula 2.0 I&O- Last 24 Hours up to 6 AM 08/30/19 06:00 Intake Total 1320 ml Output Total 900 ml Balance 420 ml Laboratory Data 24H Labs Laboratory Tests 2 08/29/19 13:17: Vancomycin Level Trough 17.0 08/29/19 18:14: Urine Color STRAW, Urine Appearance CLEAR, Urine pH 6.0, Urine Specific [place] 1.004, Urine Protein NEGATIVE, Urine Glucose (Auto)(UA) NEGATIVE, Urine Ketones (Auto) NEGATIVE, Urine Blood 2+H, Urine Nitrite NEGATIVE, Urine Bilirubin NEGATIVE, Urine Urobilinogen 0.2, Urine Leukocyte Esterase (Auto) NEGATIVE, Urine WBC (Auto) 1, Urine RBC (Auto) 74H, Urine Hyaline Casts (Auto) 0, Urine Bacteria (Auto) 1+H, Urine Squamous Epithelial Cells 4, Urine Sperm (Auto) 08/30/19 05:19: Immature Granulocyte % (Auto) 0.7, Neutrophils (%) (Auto) 75.6H, Lymphocytes (%) (Auto) 10.0L, Monocytes (%) (Auto) 9.9H, Eosinophils (%) (Auto) 3.0, Basophils (%) (Auto) 0.8, Neutrophils # (Auto) 7.0, Lymphocytes # (Auto) 0.9L, Monocytes # (Auto) 0.9H, Eosinophils # (Auto) 0.3, Basophils # (Auto) 0.1, Nucleated Red Blood Cells % (auto) 0.0, Anion Gap 1L, Glomerular Filtration Rate > 60.0, Calcium Level 8.8, Magnesium Level 2.6H, C-Reactive Protein, Quantitative 7.68H, [id number] Natriuretic Peptide 43 CBC/BMP Laboratory Tests 08/30/19 05:19 Microbiology Microbiology 08/25/19 Respiratory Virus Panel (PCR) (ISMA) - Final, Complete 08/24/19 Blood Culture - Final, Complete NO GROWTH AFTER 5 DAYS 08/24/19 Urine Culture - Final, Complete Klebsiella Pneumoniae 08/24/19 Blood Culture - Final, Complete NO GROWTH AFTER 5 DAYS Assessment This is a 73 y/o F admitted for treatment of suprapubic cellulitis and a PE, now having mild intermittent hematuria and found to have a 1.3cm partially obstructing right UPJ stone. I suspect the hematuria is related to the stone, but she will need to have a cystoscopy to r/o bladder pathology. Given the size and location of the kidney stone, I recommended treatment w/ cystoscopy, right ureteroscopy w/ laser lithotripsy, and right ureteral stent placement. Although not ideal, we can do this w/ her still on her blood thinner. I worry that waiting on addressing the stone will lead to complete obstruction and surgery on a more emergent basis. This was discussed w/ Dr. Mtz this morning and he feels that she should be ok for surgery later this week as long as we do not need to hold her blood thinner. He will work on getting her optimized for surgery. Plan - will plan for cystoscopy, right ureteroscopy w/ laser lithotripsy, and right ureteral stent placement on Wednesday - continue macrobid to treat her UTI - will need to be NPO at midnight evening PEPE GOULD MD Aug 30, 2019 09:38
--- NOTE | 2019-08-30 12:39 | IPN ---
DATE: 08/30/2019 Trini is seen on [facility]. She is doing well. She is basically waiting for cystoscopy and ureteroscopy with retrieval of right renal stone on Wednesday as part of evaluation of hematuria. PHYSICAL EXAMINATION: Afebrile. Vital signs stable. LUNGS: Clear. HEART: Regular rhythm. ABDOMEN: Soft, nontender. EXTREMITIES: Trace peripheral edema. LABORATORIES: CBC is stable. Electrolytes are unremarkable. IMPRESSION: 1. She is medically stable in anticipation of cystoscopy on Wednesday to work up her hematuria. At that point, she could probably be discharged hopefully Wednesday after the cystoscopy.
[2019-08-30 14:00] VITALS: BP 160/73
[2019-08-30] MEDS: traMADol ER 100MG TABLET (ULTRAM ER) PO SCH (21:20)
[2019-08-30 22:00] VITALS: BP 161/77
[2019-08-31 06:00] VITALS: BP 146/80
[2019-08-31 06:14] LABS: BASO # 0.1 10^3/uL (0.0-0.2); BASO % 0.6 % (0.0-1.0); EOS # 0.3 10^3/uL (0.0-0.5); EOS % 3.3 % (0.0-3.0); HEMATOCRIT 36.8 % (36.0-47.0); HEMOGLOBIN 10.8 g/dl (12.0-15.5); LYMPH # 1.5 10^3/uL (1.5-5.0); LYMPH % 17.2 % (24.0-44.0); MEAN CORPUSCULAR HEMOGLOBIN 28.2 pg (27.0-33.0); MEAN CORPUSCULAR HGB CONC 29.3 g/dl (32.0-36.5); MEAN CORPUSCULAR VOLUME 96.1 fl (80.0-96.0); MONO # 0.9 10^3/uL (0.0-0.8); MONO % 10.6 % (0.0-5.0); NEUTROPHILS # 5.8 10^3/uL (1.5-8.5); NEUTROPHILS % 67.5 % (36.0-66.0); PLATELET COUNT, AUTOMATED 381 10^3/uL (150-450); RED BLOOD COUNT 3.83 10^6/uL (4.00-5.40); WHITE BLOOD COUNT 8.6 10^3/uL (4.0-10.0)
[2019-08-31 06:39] LABS: BLOOD UREA NITROGEN 14 MG/DL (7-18); C REACTIVE PROTEIN QUANTITATIV 6.62 MG/DL (0.00-0.30); CALCIUM LEVEL 9.1 MG/DL (8.8-10.2); CARBON DIOXIDE LEVEL 45 MEQ/L (21-32); CHLORIDE LEVEL 90 MEQ/L (98-107); CREATININE FOR GFR 0.74 MG/DL (0.55-1.30); GLOMERULAR FILTRATION RATE > 60.0 (>39); GLUCOSE, FASTING 115 MG/DL (70-100); POTASSIUM SERUM 3.6 MEQ/L (3.5-5.1); SODIUM LEVEL 135 MEQ/L (136-145)
[2019-08-31] MEDS: FUROSEMIDE 40 MG/4 ML VIAL (J1940) IV SCH (08:47)
[2019-08-31] MEDS: RIVAROXABAN 15 MG TAB (XARELTO) PO SCH ×2 (08:47→17:46)
[2019-08-31] MEDS: NITROFURANTOIN (MACROBID) 100 MG CAP PO SCH ×2 (08:47→21:53)
[2019-08-31] MEDS: PANTOPRAZOLE 40MG TAB (PROTONIX) PO SCH (08:47)
[2019-08-31] MEDS: MIRALAX *UNIT DOSE* 17GM PACKET PO SCH (08:47)
[2019-08-31] MEDS: LINEZOLID 600MG TABLET (ZYVOX) PO SCH ×2 (08:47→21:53)
[2019-08-31] MEDS: NYSTATIN 100,000 UNITS/GM TOPICAL PWD 15 GM TOP SCH ×4 (08:48→21:54)
[2019-08-31] MEDS ORDERED: TORSEMIDE 10 MG TABLET PO SCH (09:00)
--- NOTE | 2019-08-31 12:07 | IPNPDOC ---
Subjective Date Seen The patient was seen on 08/31/19. Subjective Chief Complaint/HPI no further gross hematuria Constitutional: Denies: Chills, Fever ENT: Denies: Head Aches Skin: Denies: Rash Pulmonary: Denies: Dyspnea, Cough Cardiovascular: Denies: Chest Pain, Palpitations Gastrointestinal: Denies: Nausea, Vomiting Objective Physical Examination General Exam: Positive: Alert, Cooperative, No Acute Distress (she is reclining in her bedside chair watching television when I entered the room) Eye Exam: Negative: Sclera icteric Neck Exam: Positive: Supple; Negative: Lymphadenopathy Chest Exam: Positive: Clear to auscultation, Diminished (secondary to extrinsic restriction from the weight of her chest wall) Heart Exam: Positive: Rate Normal, Normal S1, Normal S2, Murmurs (2/6 ANY loudest R2 ICS) Abdomen Exam: Positive: Normal bowel sounds, Soft, Other (the area of suprapubic cellulitis remains quite tender, but is slightly less tense than it was yesterday. It is still very erythematous.) Extremity Exam: Positive: Edema (trace B PTPE) Psych Exam: Positive: Mood NL, Oriented x 3 Assessment /Plan Problems (1) Pre-op evaluation Status: Acute Problem Text: Patient is medically optimized for 08/31 ureteroscopy c laser tripsy and ureteral stent placement. She is low risk for morbidity/mortality (1%) given low risk procedure, but risk factors of recent PE on DOAC and compensated CHF. Patient wishes to assume risk and proceed with surgery. Case dw HCP, son, Radhames in detail and he agrees with proceeding ([phone]) (2) Nephrolithiasis Status: Chronic Response to Treatment: Stable Problem Text: 08/31 planned ureteroscopy c laser tripsy and ureteral stent placement s holding DOAC given high risk of adverse outcome if stone causes obstruction and also high risk of recurrent VTE if DOAC is held 08/27 renal US: IMPRESSION: Technically difficult study due to large patient size. Each kidney is normal in size. No obvious hydronephrosis. Ovoid echogenic stone (16 x 16 mm size) at the midpole region of the right kidney. This corresponds to a large right renal pelvic stone (14 x 10 mm size) seen on recent CT scan. Right renal pelvic fullness seen on recent CT scan. 08/23 CT AP: IMPRESSION: Perineal subcutaneous varices with skin thickening and fat stranding representing cellulitis. No fluid collections. Calculus in the right renal pelvis measuring 1.3 cm with mild right hydronephrosis. (3) Diastolic congestive heart failure Status: Acute Problem Text: inaccurate I/Os, but stable wts 08/30 K 3.6, 0.7; changed to torse 20 qAM and + K 10 BID 08/29 BNP 43 08/28 + fur 40 IV BID, requiring 2L O2 08/28 TTE P (4) Cellulitis of suprapubic region Status: Acute Response to Treatment: Improving Discussed With: Nurse, Patient Problem Specific Plan: Monitor Clinically, Repeat Labs Problem Text: D3 linez (prior 5D vanco IV)/macro D4/ PCN/cephalo/cipro allergy 08/30 AF, 8.6, CRP 7 08/28 AF, 9.2, CRP 7; lost IV access; therefore, changed to linez; tense fluctuant 5x 3 suprapubic area-may need ID, check US 08/27 AF since 08/23, WBC 10.5 (08/23 12.1, baseline ~9), CRP 9 (14); dc doxy (not sure why on), + macro for UTI/gross hematuria (which she tolerated per eCW in past) 08/24 RP - 08/23 BCX2 NG 08/27 pelvic US s abscess 08/23 CT AP: IMPRESSION: Perineal subcutaneous varices with skin thickening and fat stranding representing cellulitis. No fluid collections. Calculus in the right renal pelvis measuring 1.3 cm with mild right hydronephrosis. (5) Pulmonary emboli Status: Acute Response to Treatment: Improving Problem Text: ho DVT/PE, [address]; therefore, favor life-long AC Continue rivarox 15 BID load 08/23 CTA chest: IMPRESSION: Small acute pulmonary embolism in the right lower lobe segmental branch. (6) Hematuria Problem Text: no recurrence gross h-favor 2 AC and nephrolith 08/28 UA 74 RBCs, -cyt (7) Candidal intertrigo Status: Acute Response to Treatment: Improving Problem Text: Her intertrigo seems to be improving with the change from nystatin cream to powder. History of the nystatin cream tends to penetrate better than the powder, however, when an area is is moist as her subpannicular region is, moisture control is more important than skin penetration. (8) Morbid obesity with BMI of 50.0-59.9, adult Status: Chronic Problem Text: Her morbid obesity is complicating most of her medical problems a t this point in time. (9) GERD (gastroesophageal reflux disease) Status: Chronic Problem Text: Continue her home medication. (10) UTI (urinary tract infection) Status: Acute Response to Treatment: Stable Problem Specific Plan: Consult Specialist Problem Text: rx as per cellulitis 08/23 UCX: Organism 1 KLEBSIELLA PNEUMONIAE COLONY COUNT >100,000 CFU/ml FULL REPORT IN LAB NOTES (eCW and [facility]). 1. KLEBSIELLA PNEUMONIAE RX Route Dose M.I.C. ----- ----- --------- TRIMETHOPRIM/SULFAMETHOXAZOLE S PO Bactrim DS Bid <=20 S IV 160mg TMP & 800mg [id number] AMPICILLIN R PO 500mg q6h fasting 16 R IV 500mg q6h GENTAMICIN S IV 80mg q8h <=1 NITROFURANTOIN S PO 100mg BID <=16 CEFAZOLIN S IV 1gm q8h <=4 LEVOFLOXACIN S PO 250mg qd <=0.12 S PO 500mg qd S IV 500mg qd TOBRAMYCIN S IV 80mg q8h <=1 CEFTRIAXONE S IV 1gm q24h <=1 CEFTAZIDIME S IV 1gm q8h <=1 AMPICILLIN/SULBACTAM S IV 1.5g q6h <=2 PIPERACILLIN/TAZOBACTAM S IV 2.25 gm q6h <=4 AZTREONAM S IV 1gm q8h <=1 ERTAPENEM S IV 1gm qd <=0.5 MEROPENEM S IV 1 gm q8h <=0.25 S IV 500 mg q8h TIGECYCLINE S IV 50mg q12h <=0.5 CEFEPIME S IV 1 gm q12h <=1 S IV 2 gm q12h EXTD BRD SPCTRM BETA LACTAMASE - (11) Physical deconditioning Status: Acute Problem Text: 08/27 NS to dc home-plan dc home (12) Constipation Status: Chronic Problem Text: 08/28 acute on chronic (no BM in 7D) reducing FVC-+ PG, Mg citrate, Fleets Plan/VTE VTE Prophylaxis Ordered?: Yes (Xarelto) VS, I&O, 24H, Fishbone Vital Signs/I&O Vital Signs Date Time Temp Pulse Resp B/P (MAP) Pulse Ox O2 Delivery O2 Flow Rate FiO2 08/31/19 06:00 98.6 81 18 146/80 (102) 92 Nasal Cannula 08/30/19 21:00 2.0 I&O- Last 24 Hours up to 6 AM 08/31/19 06:00 Intake Total 1930 ml Output Total 550 ml Balance 1380 ml Laboratory Data 24H LABS Laboratory Tests 2 08/31/19 05:13: Immature Granulocyte % (Auto) 0.8, Neutrophils (%) (Auto) 67.5H, Lymphocytes (%) (Auto) 17.2L, Monocytes (%) (Auto) 10.6H, Eosinophils (%) (Auto) 3.3H, Basophils (%) (Auto) 0.6, Neutrophils # (Auto) 5.8, Lymphocytes # (Auto) 1.5, Monocytes # (Auto) 0.9H, Eosinophils # (Auto) 0.3, Basophils # (Auto) 0.1, Nucleated Red Blood Cells % (auto) 0.0, Anion Gap 0L, Glomerular Filtration Rate > 60.0, Calcium Level 9.1, C-Reactive Protein, Quantitative 6.62H CBC/BMP Laboratory Tests 08/31/19 05:13 Microbiology Microbiology 08/25/19 Respiratory Virus Panel (PCR) (ISMA) - Final, Complete 08/24/19 Blood Culture - Final, Complete NO GROWTH AFTER 5 DAYS 08/24/19 Urine Culture - Final, Complete Klebsiella Pneumoniae 08/24/19 Blood Culture - Final, Complete NO GROWTH AFTER 5 DAYS Gerson Mtz M.D. Aug 31, 2019 12:07
[2019-08-31] MEDS: TORSEMIDE 20 MG TAB PO SCH (13:13)
[2019-08-31] MEDS: POTASSIUM CHLORIDE 10 MEQ SR TABLET PO SCH ×2 (13:13→21:53)
[2019-08-31 14:00] VITALS: BP 145/70
--- NOTE | 2019-08-31 17:31 | IPNPDOC ---
Subjective Review oF Systems Chief Complaint The patient is a 73-year-old female admitted with a reason for visit of Cellulitis Of Suprapubic Region. Events since Last Encounter No acute events. Patient notes mild intermittent R flank pain. Denies gross hematuria. Objective Physical Examination General Exam: Alert, Cooperative, No Acute Distress Chest Exam: Normal air movement Heart Exam: Positive: Rate Normal Neuro Exam: Normal Speech Psych Exam: Mental status NL, Mood NL Vital Signs/I&O Vital Signs Date Time Temp Pulse Resp B/P (MAP) Pulse Ox O2 Delivery O2 Flow Rate FiO2 08/31/19 14:00 97.2 82 16 145/70 (95) 100 08/31/19 09:00 2.0 08/31/19 06:00 Nasal Cannula I&O- Last 24 Hours up to 6 AM 08/31/19 06:00 Intake Total 1930 ml Output Total 550 ml Balance 1380 ml Laboratory Data Labs 24H Laboratory Tests 2 08/31/19 05:13: Immature Granulocyte % (Auto) 0.8, Neutrophils (%) (Auto) 67.5H, Lymphocytes (%) (Auto) 17.2L, Monocytes (%) (Auto) 10.6H, Eosinophils (%) (Auto) 3.3H, Basophils (%) (Auto) 0.6, Neutrophils # (Auto) 5.8, Lymphocytes # (Auto) 1.5, Monocytes # (Auto) 0.9H, Eosinophils # (Auto) 0.3, Basophils # (Auto) 0.1, Nucleated Red Blood Cells % (auto) 0.0, Anion Gap 0L, Glomerular Filtration Rate > 60.0, Kris cium Level 9.1, C-Reactive Protein, Quantitative 6.62H CBC/BMP Laboratory Tests 08/31/19 05:13 Microbiology Microbiology 08/25/19 Respiratory Virus Panel (PCR) (ISMA) - Final, Complete 08/24/19 Blood Culture - Final, Complete NO GROWTH AFTER 5 DAYS 08/24/19 Urine Culture - Final, Complete Klebsiella Pneumoniae 08/24/19 Blood Culture - Final, Complete NO GROWTH AFTER 5 DAYS Assessment/Plan Date Seen The patient was seen on 08/31/19. Patient Summary This is a 73 y/o F admitted for treatment of suprapubic cellulitis and a PE, now having mild intermittent hematuria and found to have a 1.3cm partially obstructing right UPJ stone. Problems (1) Pre-op evaluation Status: Acute (2) Nephrolithiasis Status: Chronic (3) Diastolic congestive heart failure Status: Acute (4) Cellulitis of suprapubic region Status: Acute (5) Pulmonary emboli Status: Acute (6) Hematuria (7) Candidal intertrigo Status: Acute (8) Morbid obesity with BMI of 50.0-59.9, adult Status: Chronic (9) GERD (gastroesophageal reflux disease) Status: Chronic (10) UTI (urinary tract infection) Status: Acute (11) Physical deconditioning Status: Acute (12) Constipation Status: Chronic Plan/VTE VTE Prophylaxis Ordered?: Yes (Xarelto) Plan - informed consent signed for cystoscopy, right ureteroscopy with laser lithotripsy, right ureteral stent placement - continue macrobid for Klebsiella UTI - no need to hold anticoagulation - NPO at midnight PEPE GOULD MD Aug 31, 2019 17:30
[2019-08-31] MEDS: traMADol ER 100MG TABLET (ULTRAM ER) PO SCH (21:54)
[2019-08-31 22:00] VITALS: BP 165/77
[2019-09-01] VITALS (8 sets, daily range): BP systolic 126–155; BP diastolic 62–70
[2019-09-01 05:55] LABS: BASO # 0.1 10^3/uL (0.0-0.2); BASO % 0.7 % (0.0-1.0); EOS # 0.3 10^3/uL (0.0-0.5); EOS % 3.3 % (0.0-3.0); HEMATOCRIT 38.7 % (36.0-47.0); HEMOGLOBIN 11.4 g/dl (12.0-15.5); LYMPH % 21.5 % (24.0-44.0); MEAN CORPUSCULAR HEMOGLOBIN 28.4 pg (27.0-33.0); MEAN CORPUSCULAR HGB CONC 29.5 g/dl (32.0-36.5); MEAN CORPUSCULAR VOLUME 96.3 fl (80.0-96.0); MONO # 0.9 10^3/uL (0.0-0.8); MONO % 10.3 % (0.0-5.0); NEUTROPHILS # 5.8 10^3/uL (1.5-8.5); NEUTROPHILS % 63.5 % (36.0-66.0); PLATELET COUNT, AUTOMATED 388 10^3/uL (150-450); RED BLOOD COUNT 4.02 10^6/uL (4.00-5.40); WHITE BLOOD COUNT 9.1 10^3/uL (4.0-10.0)
[2019-09-01 06:16] LABS: BLOOD UREA NITROGEN 17 MG/DL (7-18); C REACTIVE PROTEIN QUANTITATIV 5.89 MG/DL (0.00-0.30); CALCIUM LEVEL 8.7 MG/DL (8.8-10.2); CARBON DIOXIDE LEVEL 44 MEQ/L (21-32); CHLORIDE LEVEL 91 MEQ/L (98-107); CREATININE FOR GFR 0.84 MG/DL (0.55-1.30); GLOMERULAR FILTRATION RATE > 60.0 (>39); GLUCOSE, FASTING 94 MG/DL (70-100); SODIUM LEVEL 138 MEQ/L (136-145)
[2019-09-01] MEDS: RIVAROXABAN 15 MG TAB (XARELTO) PO SCH ×2 (08:00→18:28)
[2019-09-01] MEDS: LINEZOLID 600MG TABLET (ZYVOX) PO SCH ×2 (09:00→20:46)
[2019-09-01] MEDS: NITROFURANTOIN (MACROBID) 100 MG CAP PO SCH ×2 (09:00→20:46)
[2019-09-01] MEDS: NYSTATIN 100,000 UNITS/GM TOPICAL PWD 15 GM TOP SCH ×4 (09:00→20:46)
[2019-09-01] MEDS: POTASSIUM CHLORIDE 10 MEQ SR TABLET PO SCH ×2 (09:00→20:45)
[2019-09-01] MEDS ORDERED: CONRAY-60 60% 50ML VIAL (Q9961) As Ordered ONE (10:47)
[2019-09-01] MEDS ORDERED: ONDANSETRON 4MG/2ML VIAL (J2405) As Ordered ONE (10:53)
[2019-09-01] MEDS ORDERED: MIDAZOLAM INJ 2 MG/2 ML VIAL (J2250) As Ordered ONE (10:53)
[2019-09-01] MEDS ORDERED: propofoL 200 MG/20 ML VIAL As Ordered ONE (10:53)
[2019-09-01] MEDS ORDERED: dexameTHASONE 4 MG/ML 1ML VIAL (J1100) As Ordered ONE ×2 (10:53→12:33)
[2019-09-01] MEDS ORDERED: LIDOCAINE 2% INJ 100 MG/5 ML SDV (FOR ANES.) As Ordered ONE (10:53)
[2019-09-01] MEDS ORDERED: fentaNYL 100 MCG/2 ML INJECTION (J3010) As Ordered ONE (10:53)
[2019-09-01] MEDS ORDERED: GENTAMICIN SULF INJ 80MG/2ML VIAL (J1580) As Ordered ONE (11:46)
--- NOTE | 2019-09-01 11:57 | IPNPDOC ---
Subjective Review oF Systems Chief Complaint The patient is a 73-year-old female admitted with a reason for visit of Cellulitis Of Suprapubic Region. Events since Last Encounter No acute events o/n. Patient has mild R flank pain. Objective Physical Examination General Exam: Alert, Cooperative, No Acute Distress Chest Exam: Normal air movement Heart Exam: Positive: Rate Normal Neuro Exam: Normal Speech Psych Exam: Mental status NL, Mood NL Vital Signs/I&O Vital Signs Date Time Temp Pulse Resp B/P (MAP) Pulse Ox O2 Delivery O2 Flow Rate FiO2 09/01/19 09:00 2.0 09/01/19 06:00 98.3 78 17 128/65 (86) 93 Nasal Cannula I&O- Last 24 Hours up to 6 AM 09/01/19 06:00 Intake Total 2508 ml Output Total 0 ml Balance 2508 ml Laboratory Data Labs 24H Laboratory Tests 2 09/01/19 05:09: Immature Granulocyte % (Auto) 0.7, Neutrophils (%) (Auto) 63.5, Lymphocytes (%) (Auto) 21.5L, Monocytes (%) (Auto) 10.3H, Eosinophils (%) (Auto) 3.3H, Basophils (%) (Auto) 0.7, Neutrophils # (Auto) 5.8, Lymphocytes # (Auto) 2.0, Monocytes # (Auto) 0.9H, Eosinophils # (Auto) 0.3, Basophils # (Auto) 0.1, Nucleated Red Blood Cells % (auto) 0.0, Anion Gap 3L, Glomerular Filtration Rate > 60.0, Calcium Level 8.7L, C-Reactive Protein, Quantitative 5.89H CBC/BMP Laboratory Tests 09/01/19 05:09 Microbiology Microbiology 08/25/19 Respiratory Virus Panel (PCR) (ISMA) - Final, Complete 08/24/19 Blood Culture - Final, Complete NO GROWTH AFTER 5 DAYS 08/24/19 Urine Culture - Final, Complete Klebsiella Pneumoniae 08/24/19 Blood Culture - Final, Complete NO GROWTH AFTER 5 DAYS Assessment/Plan Date Seen The patient was seen on 09/01/19. Patient Summary This is a 73 y/o F admitted for treatment of suprapubic cellulitis and a PE, now having mild intermittent hematuria and found to have a 1.3cm partially obstructing right UPJ stone. Plan/VTE VTE Prophylaxis Ordered?: Yes (Xarelto) VTE Exclusion Mechanical Proph: N/A:VTE Prophy Ordered VTE Exclusion Pharmacological: N/A:VTE Prophy Ordered Plan - OR today for cystoscopy, right ureteroscopy w/ laser lithotripsy, right ureteral stent placement - NPO until OR - 80mg gent preop - assuming patient feels well postop, ok for discharge home from urologic standpoint - will arrange outpt cysto and stent removal in a few wks PEPE GOULD MD Sep 01, 2019 11:57
[2019-09-01] MEDS ORDERED: GENTAMICIN 80 MG in IV 1 EA IV ONE (12:15)
[2019-09-01] MEDS ORDERED: ePHEDrine SULFATE 25 MG/5 ML(5MG/ML) SYRINGE As Ordered ONE (12:52)
[2019-09-01] MEDS ORDERED: PHENYLephrine HCL 500 MCG/5 ML (100MCG/ML) SYRINGE (J2370) As Ordered ONE (12:52)
[2019-09-01] MEDS ORDERED: ACETAMINOPHEN 1000MG 100ML IV BTL (OFIRMEV) (J0131 PER 10MG) As Ordered ONE (12:52)
--- NOTE | 2019-09-01 13:35 | IPNPDOC ---
Subjective Date Seen The patient was seen on 09/01/19. Subjective Chief Complaint/HPI no new co Constitutional: Denies: Chills, Fever Eyes: Denies: Pain ENT: Denies: Head Aches Skin: Denies: Rash Pulmonary: Denies: Dyspnea, Cough Cardiovascular: Denies: Chest Pain, Palpitations Gastrointestinal: Denies: Nausea, Vomiting Objective Physical Examination General Exam: Positive: Alert, Cooperative, No Acute Distress (she is reclining in her bedside chair watching television when I entered the room) Eye Exam: Negative: Sclera icteric Neck Exam: Positive: Supple; Negative: Lymphadenopathy Chest Exam: Positive: Clear to auscultation, Diminished (secondary to extrinsic restriction from the weight of her chest wall) Heart Exam: Positive: Rate Normal Abdomen Exam: Positive: Normal bowel sounds, Soft, Other (the area of suprapubic cellulitis remains quite tender, but is slightly less tense than it was yesterday. It is still very erythematous.) Extremity Exam: Positive: Edema (trace B PTPE) Psych Exam: Positive: Mood NL, Oriented x 3 Assessment /Plan Problems (1) Pre-op evaluation Status: Acute Problem Text: Patient is medically optimized for 08/31 ureteroscopy c laser tripsy and ureteral stent placement. She is low risk for morbidity/mortality (1%) given low risk procedure, but risk factors of recent PE on DOAC and compensated CHF. Patient wishes to assume risk and proceed with surgery. Case dw HCP, son, Radhames in detail and he agrees with proceeding ([phone]) (2) Nephrolithiasis Status: Chronic Response to Treatment: Stable Problem Text: 08/31 planned ureteroscopy c laser tripsy and ureteral stent placement s holding DOAC given high risk of adverse outcome if stone causes obstruction and also high risk of recurrent VTE if DOAC is held 08/27 renal US: IMPRESSION: Technically difficult study due to large patient size. Each kidney is normal in size. No obvious hydronephrosis. Ovoid echogenic stone (16 x 16 mm size) at the midpole region of the right kidney. This corresponds to a large right renal pelvic stone (14 x 10 mm size) seen on recent CT scan. Right renal pelvic fullness seen on recent CT scan. 08/23 CT AP: IMPRESSION: Perineal subcutaneous varices with skin thickening and fat stranding representing cellulitis. No fluid collections. Calculus in the right renal pelvis measuring 1.3 cm with mild right hydronephrosis. (3) Diastolic congestive heart failure Status: Acute Problem Text: inaccurate I/Os, but stable wts 08/30 K 3.6, 0.7; changed to torse 20 qAM and + K 10 BID 08/29 BNP 43 08/28 + fur 40 IV BID, requiring 2L O2 08/28 TTE P (4) Cellulitis of suprapubic region Status: Acute Response to Treatment: Improving Discussed With: Nurse, Patient Problem Specific Plan: Monitor Clinically, Repeat Labs Problem Text: D4/6 linez (prior 5D vanco IV)/macro D5/5 PCN/cephalo/cipro allergy 08/30 AF, 9.1 08/28 AF, 9.2, CRP 7; lost IV access; therefore, changed to linez; tense fluctuant 5x 3 suprapubic area-may need ID, check US 08/27 AF since 08/23, WBC 10.5 (08/23 12.1, baseline ~9), CRP 9 (14); dc doxy (not sure why on), + macro for UTI/gross hematuria (which she tolerated per eCW in past) 08/24 RP - 08/23 BCX2 NG 08/27 pelvic US s abscess 08/23 CT AP: IMPRESSION: Perineal subcutaneous varices with skin thickening and fat stranding representing cellulitis. No fluid collections. Calculus in the right renal pelvis measuring 1.3 cm with mild right hydronephrosis. (5) Pulmonary emboli Status: Acute Response to Treatment: Improving Problem Text: ho DVT/PE, 2000 [place]; therefore, favor life-long AC Continue rivarox 15 BID load 08/23 CTA chest: IMPRESSION: Small acute pulmonary embolism in the right lower lobe segmental branch. (6) Hematuria Problem Text: no recurrence gross h-favor 2 AC and nephrolith 08/28 UA 74 RBCs, -cyt (7) Candidal intertrigo Status: Acute Response to Treatment: Improving Problem Text: Her intertrigo seems to be improving with the change from nystatin cream to powder. History of the nystatin cream tends to penetrate better than the powder, however, when an area is is moist as her subpannicular region is, moisture control is more important than skin penetration. (8) Morbid obesity with BMI of 50.0-59.9, adult Status: Chronic Problem Text: Her morbid obesity is complicating most of her medical problems at this point in time. (9) GERD (gastroesophageal reflux disease) Status: Chronic Problem Text: Continue her home medication. (10) UTI (urinary tract infection) Status: Acute Response to Treatment: Stable Problem Specific Plan: Consult Specialist Problem Text: rx as per cellulitis 08/23 UCX: Organism 1 KLEBSIELLA PNEUMONIAE COLONY COUNT >100,000 CFU/ml FULL REPORT [facility] LAB NOTES ([facility] 1. KLEBSIELLA PNEUMONIAE RX Route Dose M.I.C. ----- ----- --------- TRIMETHOPRIM/SULFAMETHOXAZOLE S PO Bactrim DS Bid <=20 S IV 160mg TMP & 800mg SMXq6h AMPICILLIN R PO 500mg q6h fasting 16 R IV 500mg q6h GENTAMICIN S IV 80mg q8h <=1 NITROFURANTOIN S PO 100mg BID <=16 CEFAZOLIN S IV 1gm q8h <=4 LEVOFLOXACIN S PO 250mg qd <=0.12 S PO 500mg qd S IV 500mg qd TOBRAMYCIN S IV 80mg q8h <=1 CEFTRIAXONE S IV 1gm q24h <=1 CEFTAZIDIME S IV 1gm q8h <=1 AMPICILLIN/SULBACTAM S IV 1.5g q6h <=2 PIPERACILLIN/TAZOBACTAM S IV 2.25 gm q6h <=4 AZTREONAM S IV 1gm q8h <=1 ERTAPENEM S IV 1gm qd <=0.5 MEROPENEM S IV 1 gm q8h <=0.25 S IV 500 mg q8h TIGECYCLINE S IV 50mg q12h <=0.5 CEFEPIME S IV 1 gm q12h <=1 S IV 2 gm q12h EXTD BRD SPCTRM BETA LACTAMASE - (11) Physical deconditioning Status: Acute Problem Text: 08/27 NS to dc home-plan dc home (12) Constipation Status: Chronic Problem Text: 08/28 acute on chronic (no BM in 7D) reducing FVC-+ PG, Mg citrate, Fleets c adequate BM Plan/VTE VTE Prophylaxis Ordered?: Yes (Xarelto) VTE Exclusion Mechanical Proph: N/A:VTE Prophy Ordered VTE Exclusion Pharmacological: N/A:VTE Prophy Ordered VS, I&O, 24H, Fishbone Vital Signs/I&O Vital Signs Date Time Temp Pulse Resp B/P (MAP) Pulse Ox O2 Delivery O2 Flow Rate FiO2 09/01/19 09:00 2.0 09/01/19 06:00 98.3 78 17 128/65 (86) 93 Nasal Cannula I&O- Last 24 Hours up to 6 AM 09/01/19 06:00 Intake Total 2508 ml Output Total 0 ml Balance 2508 ml Laboratory Data 24H LABS Laboratory Tests 2 09/01/19 05:09: Immature Granulocyte % (Auto) 0.7, Neutrophils (%) (Auto) 63.5, Lymphocytes (%) (Auto) 21.5L, Monocytes (%) (Auto) 10.3H, Eosinophils (%) (Auto) 3.3H, Basophils (%) (Auto) 0.7, Neutrophils # (Auto) 5.8, Lymphocytes # (Auto) 2.0, Monocytes # (Auto) 0.9H, Eosinophils # (Auto) 0.3, Basophils # (Auto) 0.1, Nucleated Red Blood Cells % (auto) 0.0, Anion Gap 3L, Glomerular Filtration Rate > 60.0, Calcium Level 8.7L, C-Reactive Protein, Quantitative 5.89H CBC/BMP Laboratory Tests 09/01/19 05:09 Microbiology Microbiology 08/25/19 Respiratory Virus Panel (PCR) (ISMA) - Final, Complete 08/24/19 Blood Culture - Final, Complete NO GROWTH AFTER 5 DAYS 08/24/19 Urine Culture - Final, Complete Klebsiella Pneumoniae 08/24/19 Blood Culture - Final, Complete NO GROWTH AFTER 5 DAYS Gerson Mtz M.D. Sep 01, 2019 13:35
--- NOTE | 2019-09-01 13:53 | REP ---
Retrograde pyelogram: Two views. History: Right stent placement. 12 seconds of fluoroscopy time is reported. Findings: A sequence of two last image hold fluoroscopically obtained spot radiographs of the abdomen document right ureteral stent placement. There are clips in right upper quadrant and a vena cava filter is noted. Electronically Signed by Merritt Mccyo MD 09/01/2019 01:44 P
[2019-09-01] MEDS ORDERED: ONDANSETRON 4MG/2ML VIAL (J2405) IV PRN (14:15)
[2019-09-01] MEDS ORDERED: traMADol 50 MG TAB PO PRN (14:15)
[2019-09-01] MEDS ORDERED: fentaNYL 100 MCG/2 ML INJECTION (J3010) IV PRN (14:15)
[2019-09-01] MEDS ORDERED: LR 1,000 ML IV SCH (14:15)
[2019-09-01] MEDS ORDERED: traMADol 50 MG TAB As Ordered ONE (14:19)
[2019-09-01] MEDS: TORSEMIDE 20 MG TAB PO SCH (15:56)
[2019-09-01] MEDS: PANTOPRAZOLE 40MG TAB (PROTONIX) PO SCH (15:56)
[2019-09-01] MEDS: ACETAMINOPHEN TAB 650MG DOSE (2X325MG) PO PRN (16:03)
[2019-09-01] MEDS: traMADol ER 100MG TABLET (ULTRAM ER) PO SCH (20:45)
--- NOTE | 2019-09-01 23:22 | RO ---
DATE OF PROCEDURE: 09/01/2019 PREPROCEDURE DIAGNOSIS: Right kidney stone, gross hematuria. POSTPROCEDURE DIAGNOSIS: Right kidney stone, gross hematuria. OPERATIVE PROCEDURE: Cystoscopy, right ureteroscopy with laser lithotripsy and basket extraction of stones, right retrograde pyelogram with intraoperative interpretation of images, right ureter stent placement. SURGEON: Wayne Martinez MD FORGING PRESS LEVER TENDER: None. ANESTHESIA: General. OPERATIVE INDICATIONS: This 73-year-old female has had gross hematuria intermittently recently and was also found to have a 1.3 cm largely obstructing right renal pelvic stone. She is brought to the operating room today for treatment. DESCRIPTION OF PROCEDURE: The patient was brought to the operating room and general anesthesia was induced. Prophylactic antibiotics were infused. She was then placed in the dorsal lithotomy position, prepped and draped in the usual sterile fashion. A rigid cystoscope was inserted into the urethral meatus and advanced into the bladder. Of note the bladder was thoroughly examined and there were no bladder tumors seen. The bladder did appear to be mildly inflamed. Bilateral ureteral orifices were orthotopic and were effluxing clear urine. At this point, the guide wire was advanced up the right collecting system. I then advanced the ureteral access sheath up the right collecting system. I went up the access sheath with a flexible ureteroscope and within the renal pelvis a 1.3 cm stone was seen. I then utilized a 272 micron laser fiber to fragment the stone into several smaller pieces. Of note, the stone was very soft. I then utilized the basket to remove all the stone fragments from the kidney. Once satisfied all the larger stone fragments had been removed and only tiny debris remained, a retrograde pyelogram was performed. It was notable for mild right hydronephrosis with no extravasation. I then retrieved the ureteroscope along with the access sheath and no additional stones were seen within the ureter. I then utilized the wire to advance the a 7-Lao x 22-32 cm JJ ureteral stent up to the right collecting system. The wire was removed and there were adequate curls of the stent in the right renal pelvis and in the bladder. The bladder was then emptied of all fluids and this marked the conclusion of the procedure. The patient was taken out of the lithotomy position, awakened from anesthesia and transported to the recovery room in stable condition. ESTIMATED BLOOD LOSS: 5 mL. COMPLICATIONS: None. SPECIMENS: Kidney stone fragments. PLAN: The patient does not require any additional workup for hematuria as it was likely related to the stone. We will have her followup in the urology clinic in 2-3 weeks for stent removal. BETSY
[2019-09-02] VITALS: BP 167/74
[2019-09-02] MEDS: ACETAMINOPHEN TAB 650MG DOSE (2X325MG) PO PRN ×4 (00:41→21:12)
[2019-09-02 04:00] VITALS: BP 159/74
[2019-09-02 06:08] LABS: BASO % 0.3 % (0.0-1.0); EOS % 0.3 % (0.0-3.0); HEMATOCRIT 36.3 % (36.0-47.0); HEMOGLOBIN 10.9 g/dl (12.0-15.5); LYMPH # 1.7 10^3/uL (1.5-5.0); LYMPH % 14.7 % (24.0-44.0); MEAN CORPUSCULAR HEMOGLOBIN 28.2 pg (27.0-33.0); MONO % 8.3 % (0.0-5.0); NEUTROPHILS # 8.7 10^3/uL (1.5-8.5); NEUTROPHILS % 75.9 % (36.0-66.0); PLATELET COUNT, AUTOMATED 399 10^3/uL (150-450); RED BLOOD COUNT 3.86 10^6/uL (4.00-5.40); WHITE BLOOD COUNT 11.5 10^3/uL (4.0-10.0)
[2019-09-02 06:23] LABS: BLOOD UREA NITROGEN 20 MG/DL (7-18); CARBON DIOXIDE LEVEL 44 MEQ/L (21-32); CHLORIDE LEVEL 91 MEQ/L (98-107); CREATININE FOR GFR 0.89 MG/DL (0.55-1.30); GLOMERULAR FILTRATION RATE > 60.0 (>39); GLUCOSE, FASTING 144 MG/DL (70-100); NT-PRO BNP 86 PG/ML (<125); SODIUM LEVEL 136 MEQ/L (136-145)
[2019-09-02] MEDS: TORSEMIDE 20 MG TAB PO SCH (07:59)
[2019-09-02] MEDS: NYSTATIN 100,000 UNITS/GM TOPICAL PWD 15 GM TOP SCH ×4 (07:59→21:11)
[2019-09-02] MEDS: PANTOPRAZOLE 40MG TAB (PROTONIX) PO SCH (07:59)
[2019-09-02] MEDS: LINEZOLID 600MG TABLET (ZYVOX) PO SCH ×2 (07:59→21:11)
[2019-09-02] MEDS: POTASSIUM CHLORIDE 10 MEQ SR TABLET PO SCH ×2 (08:00→21:11)
[2019-09-02] MEDS: RIVAROXABAN 15 MG TAB (XARELTO) PO SCH ×2 (08:00→17:44)
[2019-09-02] MEDS: NITROFURANTOIN (MACROBID) 100 MG CAP PO SCH ×2 (08:00→21:11)
--- NOTE | 2019-09-02 08:48 | ECHO ---
DATE OF PROCEDURE: 08/30/2019 REFERRING PROVIDER: Dr. Gerson Mtz PATIENT LOCATION: Room 4202 REASON FOR THE STUDY: Congestive heart failure. 2D MEASUREMENTS: IVS: 1.0 cm LV: 4.9 cm LVPW: 1.0 cm LA: 3.4 cm Aorta: 2.6 cm IVC: 1.3 cm DOPPLER MEASUREMENTS: Peak velocity across the aortic valve: 2.2 meters per second Peak velocity across the LVOT: 1.3 meters per second Peak gradient across the aortic valve: 19 mmHg Mean gradient across the aortic valve: 10 mmHg Mitral E: 0.87, Mitral A: 1.0 with a ratio of 0.8 2D COMMENTS: 1. Technically limited study due to poor acoustic window secondary to body habitus. 2. Normal left ventricular size, wall thickness, and low normal global left ventricular systolic function. The estimated left ventricular systolic ejection fraction is 55-60%. 3. Normal left atrium. The right atrium and the right ventricle appeared to be normal in limited views. 4. The atrial septum appeared to be normal without evidence of defect or shunt. 5. Normal aortic root. 6. Trace pericardial effusion noted, no evidence of cardiac tamponade. 7. Mildly calcified aortic valve with mildly decreased in leaflet excursion. Mildly calcified mitral annulus with normal anterior mitral valve leaflet motion. Normal tricuspid valve. The pulmonic valve and proximal pulmonary artery branches were not well visualized. 8. The inferior vena cava was normal in size, central venous pressure is most likely normal. DOPPLER: No significant valvular abnormalities detected but mild aortic stenosis. Abnormal relaxation pattern was noted across the mitral valve leaflets as well as the mitral valve annulus consistent with features of grade 1 left ventricular diastolic dysfunction. IMPRESSION: 1. Technically limited study due to poor acoustic window. 2. Low normal global left ventricular systolic function. There are some features of left ventricular diastolic dysfunction manifested by abnormal relaxation, grade 1. 3. Aortic valve sclerosis with probably mild aortic stenosis but no aortic regurgitation. 4. Mitral annulus calcification, isolated. No evidence of mitral stenosis or mitral regurgitation. 5. Trace pericardial effusion. No evidence of cardiac tamponade. 6. The pulmonic valve and proximal pulmonary artery branches were not well visualized. MTDD
--- NOTE | 2019-09-02 11:04 | IPNPDOC ---
Subjective Review oF Systems Chief Complaint The patient is a 73-year-old female admitted with a reason for visit of Cellulitis Of Suprapubic Region. Events since Last Encounter Pt c/o freq and some R pain associated with urgency sensation and voiding. Still with dyspnea General: Reports: Fatigue, Malaise Constitutional: Reports: Weakness Eyes: Denies: Pain, Vision change Pulmonary: Reports: Dyspnea, Cough Genitourinary: Reports: Frequency Neurological: Reports: Weakness Psych: Reports: Mood Normal Objective Physical Examination General Exam: Alert, Cooperative, No Acute Distress Eye Exam: PERRLA, Conjunctiva & lids normal ENT EXAM: Atraumatic Chest Exam: Normal air movement Heart Exam: Positive: Rate Normal, Normal S1, Normal S2; Negative: Murmurs Neuro Exam: Normal Speech Psych Exam: Mental status NL, Mood NL, Oriented x 3 Vital Signs/I&O Vital Signs Date Time Temp Pulse Resp B/P (MAP) Pulse Ox O2 Delivery O2 Flow Rate FiO2 09/02/19 08:04 2.0 09/02/19 04:00 97.2 69 19 159/74 (102) 92 Nasal Cannula I&O- Last 24 Hours up to 6 AM 09/02/19 06:00 Intake Total 1000 ml Output Total 6 ml Balance 994 ml Laboratory Data Labs 24H Laboratory Tests 2 09/01/19 13:05: 09/02/19 05:09: Immature Granulocyte % (Auto) 0.5, Neutrophils (%) (Auto) 75.9H, Lymphocytes (%) (Auto) 14.7L, Monocytes (%) (Auto) 8.3H, Eosinophils (%) (Auto) 0.3, Basophils (%) (Auto) 0.3, Neutrophils # (Auto) 8.7H, Lymphocytes # (Auto) 1.7, Monocytes # (Auto) 1.0H, Eosinophils # (Auto) 0.0, Basophils # (Auto) 0.0, Nucleated Red Blood Cells % (auto) 0.0, Anion Gap 1L, Glomerular Filtration Rate > 60.0, Calcium Level 9.0, CS-Bqq-[id number]-Type Natriuretic Peptide 86 CBC/BMP Laboratory Tests 09/02/19 05:09 Microbiology Microbiology 08/25/19 Respiratory Virus Panel (PCR) (ISMA) - Final, Complete 08/24/19 Blood Culture - Final, Complete NO GROWTH AFTER 5 DAYS 08/24/19 Urine Culture - Final, Complete Klebsiella Pneumoniae 08/24/19 Blood Culture - Final, Complete NO GROWTH AFTER 5 DAYS Assessment/Plan Date Seen The patient was seen on 09/02/19. Patient Summary A: S/P USE/stenting for stone. Bladder spasms/int hematuria as expected with stent Problems (1) Pre-op evaluation Status: Acute (2) Nephrolithiasis Status: Chronic (3) Diastolic congestive heart failure Status: Acute (4) Cellulitis of suprapubic region Status: Acute (5) Pulmonary emboli Status: Acute (6) Hematuria (7) Candidal intertrigo Status: Acute (8) Morbid obesity with BMI of 50.0-59.9, adult Status: Chronic (9) GERD (gastroesophageal reflux disease) Status: Chronic (10) UTI (urinary tract infection) Status: Acute (11) Physical deconditioning Status: Acute (12) Constipation Status: Chronic Plan/VTE VTE Prophylaxis Ordered?: Yes (Xarelto) VTE Exclusion Mechanical Proph: N/A:VTE Prophy Ordered VTE Exclusion Pharmacological: N/A:VTE Prophy Ordered Plan P: Add pyridium for spasms. Anticoagulation per hosp staff. AMEYA DAHL MD Sep 02, 2019 11:04
[2019-09-02] MEDS ORDERED: PHENAZOPYRIDINE 100 MG TAB PO PRN (11:15)
[2019-09-02 14:00] VITALS: BP 167/74
--- NOTE | 2019-09-02 15:04 | IPNPDOC ---
Subjective Date Seen The patient was seen on 09/02/19. Subjective Chief Complaint/HPI no new co Constitutional: Denies: Chills, Fever ENT: Denies: Head Aches Skin: Denies: Rash Pulmonary: Denies: Dyspnea, Cough Cardiovascular: Denies: Chest Pain, Palpitations Gastrointestinal: Denies: Nausea, Vomiting Genitourinary: Denies: Dysuria Objective Physical Examination General Exam: Positive: Alert, Cooperative, No Acute Distress (she is reclining in her bedside chair watching television when I entered the room) Eye Exam: Negative: Sclera icteric Neck Exam: Positive: Supple; Negative: Lymphadenopathy Chest Exam: Positive: Clear to auscultation, Diminished (secondary to extrinsic restriction from the weight of her chest wall) Heart Exam: Positive: Rate Normal, Normal S1, Normal S2; Negative: Murmurs Abdomen Exam: Positive: Normal bowel sounds, Soft, Other (the area of suprapubic cellulitis remains quite tender, but is slightly less tense than it was yesterday. It is still very erythematous.) Extremity Exam: Negative: Edema Psych Exam: Positive: Mood NL, Oriented x 3 Assessment /Plan Problems (1) Nephrolithiasis Status: Chronic Response to Treatment: Stable Problem Text: 08/31 sp Cystoscopy, right ureteroscopy with laser lithotripsy and basket extraction of stones, right retrograde pyelogram with intraoperative interpretation of images, right ureter stent placement-Juan 08/27 renal US: IMPRESSION: Technically difficult study due to large patient size. Each kidney is normal in size. No obvious hydronephrosis. Ovoid echogenic stone (16 x 16 mm size) at the midpole region of the right kidney. This corresponds to a large right renal pelvic stone (14 x 10 mm size) seen on recent CT scan. Right renal pelvic fullness seen on recent CT scan. 08/23 CT AP: IMPRESSION: Perineal subcutaneous varices with skin thickening and fat stranding representing cellulitis. No fluid collections. Calculus in the right renal pelvis measuring 1.3 cm with mild right hydronephrosis. (2) Diastolic congestive heart failure Status: Acute Problem Text: inaccurate I/Os, but stable wts 09/01 4.0, 0.9, BNP 86 08/30 K 3.6, 0.7; changed to torse 20 qAM and + K 10 BID 08/29 BNP 43 08/28 + fur 40 IV BID, requiring 2L O2 08/28 TTE-Ivan: 1. Technically limited study due to poor acoustic window. 2. Low normal global left ventricular systolic function. There are some features of left ventricular diastolic dysfunction manifested by abnormal relaxation, grade 1. 3. Aortic valve sclerosis with probably mild aortic stenosis but no aortic regurgitation. 4. Mitral annulus calcification, isolated. No evidence of mitral stenosis or mitral regurgitation. 5. Trace pericardial effusion. No evidence of cardiac tamponade. 6. The pulmonic valve and proximal pulmonary artery branches were not well visualized. (3) Cellulitis of suprapubic region Status: Acute Response to Treatment: Improving Discussed With: Nurse, Patient Problem Specific Plan: Monitor Clinically, Repeat Labs Problem Text: D6/9 linez (prior 5D vanco IV)/macro D5/ PCN/cephalo/cipro allergy 08/30 AF, 9.1 08/28 AF, 9.2, CRP 7; lost IV access; therefore, changed to linez; tense fluctuant 5x 3 suprapubic area-may need ID, check US 08/27 AF since 08/23, WBC 10.5 (08/23 12.1, baseline ~9), CRP 9 (14); dc doxy (not sure why on), + macro for UTI/gross hematuria (which she tolerated per eCW in past) 08/24 RP - 08/23 BCX2 NG 08/27 pelvic US s abscess 08/23 CT AP: IMPRESSION: Perineal subcutaneous varices with skin thickening and fat stranding representing cellulitis. No fluid collections. Calculus in the right renal pelvis measuring 1.3 cm with mild right hydronephrosis. (4) Pulmonary emboli Status: Acute Response to Treatment: Improving Problem Text: ho DVT/PE, 2000 [place]; therefore, favor life-long AC Continue rivarox 15 BID load 08/23 CTA chest: IMPRESSION: Small acute pulmonary embolism in the right lower lobe segmental branch. (5) Hematuria Problem Text: no recurrence gross h-favor 2 AC and nephrolith 08/28 UA 74 RBCs, -cyt (6) Candidal intertrigo Status: Acute Response to Treatment: Improving Problem Text: resolved on nystatin powder QID (7) GERD (gastroesophageal reflux disease) Status: Chronic Problem Text: Continue her home medication. (8) UTI (urinary tract infection) Status: Acute Response to Treatment: Stable Problem Specific Plan: Consult Specialist Problem Text: rx as per cellulitis 08/23 UCX: Organism 1 KLEBSIELLA PNEUMONIAE COLONY COUNT >100,000 CFU/ml FULL REPORT IN LAB NOTES (e[facility] and [facility]). 1. KLEBSIELLA PNEUMONIAE RX Route Dose M.I.C. ----- ----- --------- TRIMETHOPRIM/SULFAMETHOXAZOLE S PO Bactrim DS Bid <=20 S IV 160mg TMP & 800mg SMXq6h AMPICILLIN R PO 500mg q6h fasting 16 R IV 500mg q6h GENTAMICIN S IV 80mg q8h <=1 NITROFURANTOIN S PO 100mg BID <=16 CEFAZOLIN S IV 1gm q8h <=4 LEVOFLOXACIN S PO 250mg qd <=0.12 S PO 500mg qd S IV 500mg qd TOBRAMYCIN S IV 80mg q8h <=1 CEFTRIAXONE S IV 1gm q24h <=1 CEFTAZIDIME S IV 1gm q8h <=1 AMPICILLIN/SULBACTAM S IV 1.5g q6h <=2 PIPERACILLIN/TAZOBACTAM S IV 2.25 gm q6h <=4 AZTREONAM S IV 1gm q8h <=1 ERTAPENEM S IV 1gm qd <=0.5 MEROPENEM S IV 1 gm q8h <=0.25 S IV 500 mg q8h TIGECYCLINE S IV 50mg q12h <=0.5 CEFEPIME S IV 1 gm q12h <=1 S IV 2 gm q12h EXTD BRD SPCTRM BETA LACTAMASE - (9) Physical deconditioning Status: Acute Problem Text: 08/27 NS to dc home-plan STR on 09/03 (10) Constipation Status: Chronic Problem Text: 08/28 acute on chronic (no BM in 7D) reducing FVC-+ PG, Mg citrate, Fleets c adequate BM Plan/VTE VTE Prophylaxis Ordered?: Yes (Xarelto) VTE Exclusion Mechanical Proph: N/A:VTE Prophy Ordered VTE Exclusion Pharmacological: N/A:VTE Prophy Ordered VS, I&O, 24H, Fishbone Vital Signs/I&O Vital Signs Date Time Temp Pulse Resp B/P (MAP) Pulse Ox O2 Delivery O2 Flow Rate FiO2 09/02/19 14:00 97.4 73 20 167/74 (105) 95 Nasal Cannula 2.0 I&O- Last 24 Hours up to 6 AM 09/02/19 06:00 Intake Total 1000 ml Output Total 6 ml Balance 994 ml Laboratory Data 24H LABS Laboratory Tests 2 09/02/19 05:09: Immature Granulocyte % (Auto) 0.5, Neutrophils (%) (Auto) 75.9H, Lymphocytes (%) (Auto) 14.7L, Monocytes (%) (Auto) 8.3H, Eosinophils (%) (Auto) 0.3, Basophils (%) (Auto) 0.3, Neutrophils # (Auto) 8.7H, Lymphocytes # (Auto) 1.7, Monocytes # (Auto) 1.0H, Eosinophils # (Auto) 0.0, Basophils # (Auto) 0.0, Nucleated Red Blood Cells % (auto) 0.0, Anion Gap 1L, Glomerular Filtration Rate > 60.0, Calcium Level 9.0, [id number]-Type Natriuretic Peptide 86 CBC/BMP Laboratory Tests 09/02/19 05:09 Microbiology Microbiology 08/25/19 Respiratory Virus Panel (PCR) (ISMA) - Final, Complete 08/24/19 Blood Culture - Final, Complete NO GROWTH AFTER 5 DAYS 08/24/19 Urine Culture - Final, Complete Klebsiella Pneumoniae 08/24/19 Blood Culture - Final, Complete NO GROWTH AFTER 5 DAYS Gerson Mtz M.D. Sep 02, 2019 15:04
[2019-09-02] MEDS: traMADol ER 100MG TABLET (ULTRAM ER) PO SCH (21:11)
[2019-09-02 22:00] VITALS: BP 164/77
[2019-09-02] MEDS ORDERED: NORCO, ANEXSIA 5/325MG TABLET (HYDROcodone/ACETAMINOPHEN) PO PRN (23:30)
[2019-09-02] MEDS: MOM 30ML SUSPENSION UDC PO PRN (23:44)
[2019-09-03] VITALS: BP 164/77
[2019-09-03] MEDS: PHENAZOPYRIDINE 100 MG TAB PO SCH ×4 (00:40→21:08)
[2019-09-03] MEDS: NORCO, ANEXSIA 5/325MG TABLET (HYDROcodone/ACETAMINOPHEN) PO PRN ×3 (02:11→16:46)
[2019-09-03 06:00] VITALS: BP 162/73
[2019-09-03] MEDS: PANTOPRAZOLE 40MG TAB (PROTONIX) PO SCH (08:21)
[2019-09-03] MEDS: NITROFURANTOIN (MACROBID) 100 MG CAP PO SCH ×2 (08:21→21:09)
[2019-09-03] MEDS: MOM 30ML SUSPENSION UDC PO PRN (08:21)
[2019-09-03] MEDS: TORSEMIDE 20 MG TAB PO SCH (08:23)
[2019-09-03] MEDS: POTASSIUM CHLORIDE 10 MEQ SR TABLET PO SCH ×2 (08:23→21:09)
[2019-09-03] MEDS: RIVAROXABAN 15 MG TAB (XARELTO) PO SCH ×2 (08:23→16:44)
[2019-09-03] MEDS: LINEZOLID 600MG TABLET (ZYVOX) PO SCH ×2 (08:24→21:09)
[2019-09-03] MEDS: NYSTATIN 100,000 UNITS/GM TOPICAL PWD 15 GM TOP SCH ×4 (08:24→21:10)
[2019-09-03 14:00] VITALS: BP 160/70
--- NOTE | 2019-09-03 16:54 | IPNPDOC ---
Subjective Date Seen The patient was seen on 09/03/19. Subjective Chief Complaint/HPI Ms. Zayas reports that she is actually feeling pretty well this afternoon. She has had some persistent hematuria and asks how long I think this will last after her urologic procedure. She knows she must continue on her anticoagulant even with hematuria. General: Reports: Normal Appetite Pulmonary: Denies: Cough, Pleuritic Chest Pain Cardiovascular: Denies: Chest Pain, Palpitations Genitourinary: Reports: Hematuria; Denies: Dysuria Psych: Reports: Mood Normal Objective Physical Examination General Exam: Positive: Alert, Cooperative, No Acute Distress (she is sitting in her bedside chair eating some food when I entered the room) Eye Exam: Negative: Sclera icteric ENT Exam: Positive: Mucous membr. moist/pink Neck Exam: Positive: Supple; Negative: Lymphadenopathy Chest Exam: Positive: Clear to auscultation, Diminished (secondary to extrinsic restriction from the weight of her chest wall) Heart Exam: Positive: Rate Normal, Normal S1, Normal S2; Negative: Murmurs Abdomen Exam: Positive: Normal bowel sounds, Soft Extremity Exam: Positive: Edema (trace pitting), Tenderness (both legs remain palpably tender, but this seems to be a chronic finding) Psych Exam: Positive: Mood NL, Oriented x 3 Assessment /Plan Problems (1) Pulmonary emboli Status: Acute Response to Treatment: Improving Problem Text: ho DVT/PE, 2000 [place]; therefore, favor life-long AC Continue rivarox 15 BID load 08/23 CTA chest: IMPRESSION: Small acute pulmonary embolism in the right lower lobe segmental branch. (2) Nephrolithiasis Status: Chronic Response to Treatment: Stable Problem Text: Urology continues to follow. Appreciate their assistance. 08/31 sp Cystoscopy, right ureteroscopy with laser lithotripsy and basket extraction of stones, right retrograde pyelogram with intraoperative interpretation of images, right ureter stent placement-Juan 08/27 renal US: IMPRESSION: Technically difficult study due to large patient size. Each kidney is normal in size. No obvious hydronephrosis. Ovoid echogenic stone (16 x 16 mm size) at the midpole region of the right kidney. This corresponds to a large right renal pelvic stone (14 x 10 mm size) seen on recent CT scan. Right renal pelvic fullness seen on recent CT scan. 08/23 CT AP: IMPRESSION: Perineal subcutaneous varices with skin thickening and fat stranding representing cellulitis. No fluid collections. Calculus in the right renal pelvis measuring 1.3 cm with mild right hydronephrosis. (3) Hematuria Problem Text: She has some persistent gross hematuria today. This is likely related to her anticoagulated status in addition to her recent urologic procedure. 08/28 UA 74 RBCs, -cyt (4) Physical deconditioning Status: Acute Problem Text: 08/27 NS to dc home-plan STR on 09/03 (5) Diastolic congestive heart failure Status: Acute Problem Text: Clinically compensated. Continue current regimen, monitor. 09/01 4.0, 0.9, BNP 86 08/30 K 3.6, 0.7; changed to torse 20 qAM and + K 10 BID 08/29 BNP 43 08/28 + fur 40 IV BID, requiring 2L O2 08/28 TTE-Ivan: 1. Technically limited study due to poor acoustic window. 2. Low normal global left ventricular systolic function. There are some features of left ventricular diastolic dysfunction manifested by abnormal relaxation, grade 1. 3. Aortic valve sclerosis with probably mild aortic stenosis but no aortic regurgitation. 4. Mitral annulus calcification, isolated. No evidence of mitral stenosis or mitral regurgitation. 5. Trace pericardial effusion. No evidence of cardiac tamponade. 6. The pulmonic valve and proximal pulmonary artery branches were not well visualized. (6) Cellulitis of suprapubic region Status: Acute Response to Treatment: Improving Discussed With: Nurse, Patient Problem Specific Plan: Monitor Clinically, Repeat Labs Problem Text: D7/ linez (prior 5D vanco IV) PCN/cephalo/cipro allergy 08/30 AF, 9.1 08/28 AF, 9.2, CRP 7; lost IV access; therefore, changed to linez; tense fluctuant 5x 3 suprapubic area-may need ID, check US 08/27 AF since 08/23, WBC 10.5 (08/23 12.1, baseline ~9), CRP 9 (14); dc doxy (not sure why on), + macro for UTI/gross hematuria (which she tolerated per eCW in past) 08/24 RP - 08/23 BCX2 NG 08/27 pelvic US s abscess 08/23 CT AP: IMPRESSION: Perineal subcutaneous varices with skin thickening and fat stranding representing cellulitis. No fluid collections. Calculus in the right renal pelvis measuring 1.3 cm with mild right hydronephrosis. (7) GERD (gastroesophageal reflux disease) Status: Chronic Problem Text: Continue her home medication. (8) Constipation Status: Chronic Problem Text: 08/28 acute on chronic (no BM in 7D) reducing FVC-+ PG, Mg citrate, Fleets c adequate BM (9) Candidal intertrigo Status: Resolved Response to Treatment: Improving Problem Text: resolved on nystatin powder QID (10) UTI (urinary tract infection) Status: Resolved Response to Treatment: Stable Problem Specific Plan: Consult Specialist Problem Text: rx as per cellulitis 08/23 UCX: Organism 1 KLEBSIELLA PNEUMONIAE COLONY COUNT >100,000 CFU/ml FULL REPORT IN LAB NOTES (eCW and [facility]). 1. KLEBSIELLA PNEUMONIAE RX Route Dose M.I.C. ----- ----- --------- TRIMETHOPRIM/SULFAMETHOXAZOLE S PO Bactrim DS Bid <=20 S IV 160mg TMP & 800mg SMXq6h AMPICILLIN R PO 500mg q6h fasting 16 R IV 500mg q6h GENTAMICIN S IV 80mg q8h <=1 NITROFURANTOIN S PO 100mg BID <=16 CEFAZOLIN S IV 1gm q8h <=4 LEVOFLOXACIN S PO 250mg qd <=0.12 S PO 500mg qd S IV 500mg qd TOBRAMYCIN S IV 80mg q8h <=1 CEFTRIAXONE S IV 1gm q24h <=1 CEFTAZIDIME S IV 1gm q8h <=1 AMPICILLIN/SULBACTAM S IV 1.5g q6h <=2 PIPERACILLIN/TAZOBACTAM S IV 2.25 gm q6h <=4 AZTREONAM S IV 1gm q8h <=1 ERTAPENEM S IV 1gm qd <=0.5 MEROPENEM S IV 1 gm q8h <=0.25 S IV 500 mg q8h TIGECYCLINE S IV 50mg q12h <=0.5 CEFEPIME S IV 1 gm q12h <=1 S IV 2 gm q12h EXTD BRD SPCTRM BETA LACTAMASE - Plan/VTE VTE Prophylaxis Ordered?: Yes (Xarelto) VTE Exclusion Mechanical Proph: N/A:VTE Prophy Ordered VTE Exclusion Pharmacological: N/A:VTE Prophy Ordered VS, I&O, 24H, Fishbone Vital Signs/I&O Vital Signs Date Time Temp Pulse Resp B/P (MAP) Pulse Ox O2 Delivery O2 Flow Rate FiO2 09/03/19 16:46 17 09/03/19 14:00 97.4 64 160/70 (100) 96 Nasal Cannula 2.0 I&O- Last 24 Hours up to 6 AM0 09/03/19 06:00 Intake Total 580 ml Output Total 550 ml Balance 30 ml Laboratory Data Microbiology Microbiology 08/25/19 Respiratory Virus Panel (PCR) ([facility]) - Final, Complete 08/24/19 Blood Culture - Final, Complete NO GROWTH AFTER 5 DAYS 08/24/19 Urine Culture - Final, Complete Klebsiella Pneumoniae 08/24/19 Blood Culture - Final, Complete NO GROWTH AFTER 5 DAYS Julian Vu MD Sep 03, 2019 16:54
[2019-09-03] MEDS: traMADol ER 100MG TABLET (ULTRAM ER) PO SCH (21:09)
[2019-09-03 22:00] VITALS: BP 160/73
[2019-09-04] MEDS: NORCO, ANEXSIA 5/325MG TABLET (HYDROcodone/ACETAMINOPHEN) PO PRN ×2 (00:40→06:33)
[2019-09-04 06:00] VITALS: BP 154/73
[2019-09-04 06:20] LABS: BASO # 0.1 10^3/uL (0.0-0.2); BASO % 0.7 % (0.0-1.0); EOS # 0.3 10^3/uL (0.0-0.5); EOS % 3.3 % (0.0-3.0); HEMATOCRIT 38.5 % (36.0-47.0); HEMOGLOBIN 11.4 g/dl (12.0-15.5); LYMPH # 2.8 10^3/uL (1.5-5.0); LYMPH % 26.9 % (24.0-44.0); MEAN CORPUSCULAR HEMOGLOBIN 28.2 pg (27.0-33.0); MEAN CORPUSCULAR HGB CONC 29.6 g/dl (32.0-36.5); MEAN CORPUSCULAR VOLUME 95.3 fl (80.0-96.0); MONO % 9.3 % (0.0-5.0); NEUTROPHILS # 6.1 10^3/uL (1.5-8.5); NEUTROPHILS % 59.3 % (36.0-66.0); PLATELET COUNT, AUTOMATED 362 10^3/uL (150-450); RED BLOOD COUNT 4.04 10^6/uL (4.00-5.40); WHITE BLOOD COUNT 10.2 10^3/uL (4.0-10.0)
[2019-09-04 06:46] LABS: ALBUMIN 3.3 GM/DL (3.2-5.2); BILIRUBIN,TOTAL 0.7 MG/DL (0.2-1.0); CALCIUM LEVEL 9.5 MG/DL (8.8-10.2); CREATININE FOR GFR 1.03 MG/DL (0.55-1.30); GLOMERULAR FILTRATION RATE 56.1 (>39); POTASSIUM SERUM 3.7 MEQ/L (3.5-5.1); TOTAL PROTEIN 7.6 GM/DL (6.4-8.2)
[2019-09-04] MEDS: NYSTATIN 100,000 UNITS/GM TOPICAL PWD 15 GM TOP SCH ×4 (08:33→20:12)
[2019-09-04] MEDS: TORSEMIDE 20 MG TAB PO SCH (08:33)
[2019-09-04] MEDS: POTASSIUM CHLORIDE 10 MEQ SR TABLET PO SCH ×2 (08:33→20:12)
[2019-09-04] MEDS: PHENAZOPYRIDINE 100 MG TAB PO SCH ×3 (08:34→20:11)
[2019-09-04] MEDS: PANTOPRAZOLE 40MG TAB (PROTONIX) PO SCH (08:34)
[2019-09-04] MEDS: RIVAROXABAN 15 MG TAB (XARELTO) PO SCH ×2 (08:34→17:13)
[2019-09-04] MEDS: LINEZOLID 600MG TABLET (ZYVOX) PO SCH ×2 (08:34→20:11)
--- NOTE | 2019-09-04 11:41 | DS.PDOC ---
Discharge Summary General Date of Admission Aug 24, 2019 at 23:01 Date of Discharge SNF transfer - 09/04/19. Full summary will come on discharge to another facility. Primary Care Physician: Jovi Cox MD Attending Physician: Julian Vu MD Specialist/Consultants Involve: PEPE GOULD MD Discharge Summary ADMITTING DIAGNOSES: 1. Perineal cellulitis. 2. Asymptomatic bacteriuria. 3. Chronic lower lobe pulmonary embolism. 4. GERD. 5. Morbid obesity, BMI 52.2. DISCHARGE DIAGNOSES: 1. Acute pulmonary embolism, now back on direct acting oral anticoagulant. 2. Nephrolithiasis, status post cystoscopy and right ureteroscopy with laser lithotripsy and basket extraction of stones and right ureter stent placement. 3. Hematuria. 4. Diastolic congestive heart failure. 5. Cellulitis of the suprapubic region. 6. GERD. 7. Constipation. 8. Haley intertrigo. 9. Morbid obesity. PROCEDURES PERFORMED DURING STAY: Cystoscopy and right ureteroscopy with a lithotripsy and basket extraction of stones and right ureter stent placement. ADMISSION HISTORY: Ms. Zayas reported to [facility] emergency department with complaints of pelvic area, redness, warmth, pain and swelling. Please see the admission history and physical for the remaining details. HOSPITAL COURSE: Ms. Zayas was admitted with a suprapubic cellulitis and started on IV antibiotics. It was determined that the pulmonary embolism was not chronic (as the patient had been stating), but in fact this was an acute PE that probably happened after she decided to stop her Xarelto on her own because of hematuria about 4 weeks ago. The Xarelto was resumed. The hematuria returned. A right kidney stone was identified on several imaging studies and so urology was consulted. Dr. Gould saw the patient and performed the procedure noted below. She continues to have some hematuria after this, but it was in the range exp ected after this procedure and she didn't become severely or symptomatically anemic. Her cellulitis slowly improved and she was transitioned over to oral linezolid to complete a total of 14 days of therapy. (The longer duration was selected because of the amount of tissue initially involved and the slow improvement during this hospitalization.) 1-2 days prior to transition to go to [facility] care the patient did begin complaining of some postprandial epigastric and right upper quadrant pain. This was felt probably to be related to either gas or constipation, but a liver ultrasound was performed for evaluation. This showed only hepatic steatosis; patient's symptoms did improve after a large tiny wel movement. DISCHARGE CONDITION: Stable. FOLLOW-UP: Prior to discharge a hospital follow-up appointment should be scheduled with her PCP, Dr. Jovi Cox. She should also be scheduled for follow-up with urology on discharge. DIET: Low-fat low-cholesterol. ACTIVITY: As tolerated and as ordered by physical therapy. DISCHARGE MEDICATIONS: Please see below. ALLERGIES: Please see below. LABORATORY DATA: Please see below. IMAGING: CT angiogram of the chest, CT of the abdomen and pelvis, renal and pelvis ultrasounds, liver ultrasound. Vital Signs/I&Os Vital Signs Date Time Temp Pulse Resp B/P (MAP) Pulse Ox O2 Delivery O2 Flow Rate FiO2 09/04/19 09:00 1.0 09/04/19 07:03 16 09/04/19 06:00 97.9 70 154/73 (100) 94 Nasal Cannula I&O- Last 24 Hours up to 6 AM 09/04/19 06:00 Intake Total 1100 ml Output Total 900 ml Balance 200 ml Laboratory Data Labs 24H Laboratory Tests 2 09/04/19 05:08: Immature Granulocyte % (Auto) 0.5, Neutrophils (%) (Auto) 59.3, Lymphocytes (%) (Auto) 26.9, Monocytes (%) (Auto) 9.3H, Eosinophils (%) (Auto) 3.3H, Basophils (%) (Auto) 0.7, Neutrophils # (Auto) 6.1, Lymphocytes # (Auto) 2.8, Monocytes # (Auto) 1.0H, Eosinophils # (Auto) 0.3, Basophils # (Auto) 0.1, Nucleated Red Blood Cells % (auto) 0.0, Anion Gap 2L, Glomerular Filtration Rate 56.1, Calcium Level 9.5, Total Bilirubin 0.7, Aspartate Amino Transf (AST/SGOT) 23, Alanine Aminotransferase (ALT/SGPT) 15, Alkaline Phosphatase 72, Total Protein 7.6, Albumin 3.3, Albumin/Globulin Ratio 0.77L CBC/BMP Laboratory Tests 09/04/19 05:08 Microbiology Microbiology 08/25/19 Respiratory Virus Panel (PCR) ([facility]) - Final, Complete Discharge Medications Scheduled Ascorbic Acid (Ascorbic Acid) 500 Mg Tab, 500 MG PO QHS, (Reported) Cholecalciferol (Vitamin D3) (Vitamin D3) 1,000 Unit Tablet, 1,000 UNITS PO DAILY, (Reported) Cyanocobalamin (Vitamin B-12) (Vitamin B-12) 1,000 Mcg Tablet, 1,000 MCG PO DAILY, (Reported) Gluc Gilliam/Chondro Gilliam A/Vit C/Mn (Glucosamine Chondroitin Tab) 1 Each Tablet, 2 TAB PO DAILY, (Reported) Glucosamine/D3/Boswellia Liss (Osteo Bi-Flex Tablet) 1 Each Tablet, 1 EACH PO DAILY, (Reported) Pantoprazole Sodium (Pantoprazole Sodium) 40 Mg Tab, 40 MG PO DAILY, (Reported) Scheduled PRN Acetaminophen (Acetaminophen) 500 Mg Tablet, 1,000 MG PO BID PRN for PAIN, (Reported) Allergies Coded Allergies: Cephalosporins (Verified Allergy, Unknown, rash, 08/24/19) Penicillins (Verified Allergy, Unknown, makes me break out in convulsions, 08/24/19) aspirin (Verified Allergy, Unknown, my mother told me, I don't know, 08/24/19) atorvastatin (Verified Allergy, Unknown, myalgia, 08/24/19) ciprofloxacin (Verified Allergy, Unknown, rash, 08/24/19) pravastatin (Verified Allergy, Unknown, myalgia, 08/24/19) Julain Vu MD Sep 04, 2019 11:41 am
--- NOTE | 2019-09-04 13:44 | REP ---
Clinical: Postprandial pain. Technique: Real time ross scale and color evaluation using curved array transducer. Findings: Liver demonstrates increased echotexture and poor through transmission suggesting fatty infiltration. No focal hepatic lesion identified. The pancreas is incompletely evaluated due to interposed bowel gas but visualized portions appear normal. The patient is noted to be status post cholecystectomy. No biliary ductal dilatation is appreciated and the common bile duct measures 6.1 mm diameter. Right kidney is normal in reniform shape without hydronephrosis and measures 9.0 x 5.4 x 5.2 cm. There is a history of IVC filter placement, but evaluation is suboptimal due to body habitus and overlying bowel gas. No ascites. Impression: Hepatic steatosis. Electronically Signed by Long Bunch MD 09/04/2019 01:36 P
[2019-09-04 14:00] VITALS: BP 144/68
[2019-09-04] MEDS: traMADol ER 100MG TABLET (ULTRAM ER) PO SCH (20:11)
[2019-09-04 22:00] VITALS: BP 155/84
[2019-09-05 06:00] VITALS: BP 162/83
[2019-09-05] MEDS: NYSTATIN 100,000 UNITS/GM TOPICAL PWD 15 GM TOP SCH ×4 (08:41→20:46)
[2019-09-05] MEDS: MOM 30ML SUSPENSION UDC PO PRN (08:41)
[2019-09-05] MEDS: POTASSIUM CHLORIDE 10 MEQ SR TABLET PO SCH ×2 (08:42→20:46)
[2019-09-05] MEDS: TORSEMIDE 20 MG TAB PO SCH (08:42)
[2019-09-05] MEDS: RIVAROXABAN 15 MG TAB (XARELTO) PO SCH ×2 (08:42→17:37)
[2019-09-05] MEDS: LINEZOLID 600MG TABLET (ZYVOX) PO SCH ×2 (08:42→20:46)
[2019-09-05] MEDS: PHENAZOPYRIDINE 100 MG TAB PO SCH ×3 (08:42→20:46)
[2019-09-05] MEDS: PANTOPRAZOLE 40MG TAB (PROTONIX) PO SCH (08:42)
[2019-09-05 14:00] VITALS: BP 159/81
[2019-09-05] MEDS: traMADol ER 100MG TABLET (ULTRAM ER) PO SCH (20:46)
[2019-09-05 22:00] VITALS: BP 152/80
[2019-09-06 06:00] VITALS: BP 134/75
[2019-09-06] MEDS: RIVAROXABAN 15 MG TAB (XARELTO) PO SCH (09:10)
[2019-09-06] MEDS: TORSEMIDE 20 MG TAB PO SCH (09:10)
[2019-09-06] MEDS: PANTOPRAZOLE 40MG TAB (PROTONIX) PO SCH (09:10)
[2019-09-06] MEDS: NYSTATIN 100,000 UNITS/GM TOPICAL PWD 15 GM TOP SCH ×2 (09:11→12:40)
[2019-09-06] MEDS: POTASSIUM CHLORIDE 10 MEQ SR TABLET PO SCH (09:11)
[2019-09-06] MEDS: PHENAZOPYRIDINE 100 MG TAB PO SCH (09:21)
[2019-09-06] MEDS: LINEZOLID 600MG TABLET (ZYVOX) PO SCH (09:21)
[2019-09-06] MEDS ORDERED: TRAM10TAER PO (11:35)
[2019-09-06] MEDS ORDERED: XARE15TA PO (11:35)
[2019-09-06] MEDS ORDERED: TORS20TA2 PO (11:35)
[2019-09-06] MEDS ORDERED: LINE1TAB6 PO (11:35)
[2019-09-06] MEDS ORDERED: NYST10006 TOP (11:35)
--- NOTE | 2019-09-06 11:43 | DS.PDOC ---
Discharge Summary General Date of Admission Aug 24, 2019 at 23:01 Date of Discharge 09/06/19 Discharge Summary PROCEDURES PERFORMED DURING STAY: [None]. ADMITTING DIAGNOSES: 1. Perineal cellulitis. 2. Asymptomatic bacteriuria. 3. Chronic lower lobe pulmonary embolism. 4. GERD. 5. Morbid obesity, BMI 52.2. DISCHARGE DIAGNOSES: 1. Acute pulmonary embolism, now back on direct acting oral anticoagulant. 2. Nephrolithiasis, status post cystoscopy and right ureteroscopy with laser lithotripsy and basket extraction of stones and right ureter stent placement. 3. Hematuria. 4. Diastolic congestive heart failure. 5. Cellulitis of the suprapubic region. 6. GERD. 7. Constipation. 8. Haley intertrigo. 9. Morbid obesity. COMPLICATIONS/CHIEF COMPLAINT: Cellulitis Of Suprapubic Region. HISTORY OF PRESENT ILLNESS: Ms. Zayas reported to [facility] emergency department with complaints of pelvic area, redness, warmth, pain and swelling. Please see the admission history and physical for the remaining details. HOSPITAL COURSE: Ms. Zayas was admitted with a suprapubic cellulitis and started on IV antibiotics. It was determined that the pulmonary embolism was not chronic (as the patient had been stating), but in fact this was an acute PE that probably happened after she decided to stop her Xarelto on her own because of hematuria about 4 weeks ago. The Xarelto was resumed. The hematuria returned. A right kidney stone was identified on several imaging studies and so urology was consulted. Dr. Martinez saw the patient and performed the procedure noted lucero feliciano. She continues to have some hematuria after this, but it was in the range expected after this procedure and she didn't become severely or symptomatically anemic. Her cellulitis slowly improved and she was transitioned over to oral linezolid to complete a total of 14 days of therapy. (The longer duration was selected because of the amount of tissue initially involved and the slow improvement during this hospitalization.) 1-2 days prior to transition to go to level of care the patient did begin complaining of some postprandial epigastric and right upper quadrant pain. This was felt probably to be related to either gas or constipation, but a liver ultrasound was performed for evaluation. This showed only hepatic steatosis. DISCHARGE MEDICATIONS: Please see below. ALLERGIES: Please see below. PHYSICAL EXAMINATION ON DISCHARGE: VITAL SIGNS: Please see below. General Exam: Positive: Alert, Cooperative, No Acute Distress (she is reclining in her bedside chair watching television when I entered the room) Eye Exam: Negative: Sclera icteric Neck Exam: Positive: Supple; Negative: Lymphadenopathy Chest Exam: Positive: Clear to auscultation, Diminished (secondary to extrinsic restriction from the weight of her chest wall) Heart Exam: Positive: Rate Normal Abdomen Exam: Positive: Normal bowel sounds, Soft, Other (the area of suprapubic cellulitis remains quite tender, but is slightly less tense than it was yesterday. It is still very erythematous.) Extremity Exam: Positive: Edema (trace B PTPE) Psych Exam: Positive: Mood NL, Oriented x 3 LABORATORY DATA: Please see below. IMAGING: [facility] NAME: CAITLIN ZAYAS DATE OF : 1945 BUSINESS NUMBER: [id number] AGE: 73 SEX: F REPORT #: [id number] ROOM: ED TECHNOLOGIST: JUAN MANUEL DOCTOR: REBECA TORRES PA-C Ordered for Date&Time: 08/24/191742 cc: [~ rep ct ivnm] Service Date&Time: 08/24/191920 This report is in Signed status. Interpretation performed by [facility]. Thank you for having your radiology procedures performed at [facility] RADIOLOGY REPORT Date&Time printed: [~ rep prt dt last] [~ rep prt tm last] Page 2 of 2 [place] [id number] RADIOLOGY REPORT This report is in Signed status. Interpretation performed by [facility]. Thank you for having your radiology procedures performed at [facility] RADIOLOGY REPORT Date&Time printed: [~ rep prt dt last] [~ rep prt tm last] Page 1 of 2 PROCEDURE INFORMATION: Exam: CT Abdomen And Pelvis With Contrast Exam date and time: 08/24/2019 7:21 PM Age: 73 years old Clinical indication: Mass, lump, or swelling; Other: Suprapubic; Additional info: Swollen, firm area suprapubic TECHNIQUE: Imaging protocol: Computed tomography of the abdomen and pelvis with intravenous contrast. Radiation optimization: All CT scans at this facility use at least one of these dose optimization techniques: automated exposure control; mA and/or kV adjustment per patient size (includes targeted exams where dose is matched to clinical indication); or iterative reconstruction. Contrast material: ISOVUE 370; Contrast volume: 100 ml; Contrast route: IV; COMPARISON: CT ABD PELVIS W/O FOL BY WIT 03/01/2018 11:25 AM FINDINGS: Liver: Normal. No mass. Gallbladder and bile ducts: Cholecystectomy clips. Pancreas: Normal. No ductal dilation. Spleen: Normal. No splenomegaly. Adrenals: Normal. No mass. Kidneys and ureters: Normal. No hydronephrosis. Stomach and bowel: Unremarkable. No obstruction. No mucosal thickening. Appendix: No evidence of appendicitis. Intraperitoneal space: Unremarkable. No free air. No significant fluid collection. Vasculature: IVC filter. Lymph nodes: Unremarkable. No enlarged lymph nodes. Bladder: Unremarkable as visualized. Reproductive: Unremarkable as visualized. Bones/joints: Mild degenerative changes of the spine. Soft tissues: Perineal subcutaneous varices. There is skin thickening and fat stranding of the perineum. Other findings: 1.3 cm calculus in the right pelvis IMPRESSION: Perineal subcutaneous varices with skin thickening and fat stranding representing cellulitis. No fluid collections. Calculus in the right renal pelvis measuring 1.3 cm with mild right hydronephrosis. Electronically signed by: Gal Delgado On 08/24/2019 20:59:48 PM DD: GAL Mosqueda RAI, DO 08/24/191920 DT: ALBARO 08/24/192058 DS: WINTER 08/24/192058 [~ rep ct labl] DATE OF : 1945 BUSINESS NUMBER: [id number] AGE: 73 SEX: F REPORT #: [id number] ROOM: ED TECHNOLOGIST: JUAN MANUEL DOCTOR: REBCEA TORRES PA-C Ordered for Date&Time: 08/24/191742 cc: [~ rep ct ivnm] Service Date&Time: 08/24/191920 EXAMINATION REQUESTED: CT ANGIO CHEST REASON FOR PATIENT VISIT: PELVIC PAIN REASON FOR EXAMINATION: short of breath, hx pe stopped xarelto ADDENDUM REPORT 1 THIS REPORT CONTAINS FINDINGS THAT MAY BE CRITICAL TO PATIENT CARE. The findings were verbally communicated via telephone conference with REBECA TORRES at 8:34 PM EDT on 08/24/2019. The findings were acknowledged and understood. Electronically signed by: Gal Delgado On 08/24/2019 20:35:00 PM DD: GAL Mosqueda RAI, DO 08/24/191920 DT: ALBARO 08/24/192034 DS: WINTER 08/24/192034 PROCEDURE INFORMATION: Exam: CT Angiography Chest With Contrast Exam date and time: 08/24/2019 7:21 PM Age: 73 years old Clinical indication: Shortness of breath; Additional info: Short of breath, HX pe stopped xarelto TECHNIQUE: Imaging protocol: Computed tomographic angiography of the chest with intravenous contrast. 3D rendering: MIP and/or 3D reconstructed images were created by the technologist. Radiation optimization: All CT scans at this facility use at least one of these dose optimization techniques: automated exposure control; mA and/or kV adjustment per patient size (includes targeted exams where dose is matched to clinical indication); or iterative reconstruction. Contrast material: ISOVUE 370; Contrast volume: 100 ml; Contrast route: IV; COMPARISON: DX CHEST 2 VIEW 04/21/2018 9:17 AM FINDINGS: Pulmonary arteries: Small filling defect in the right lower lobe segmental branch (series 401, image 94) representing a small pulmonary embolism. Aorta: Unremarkable. No aortic aneurysm. No aortic dissection. Inferior vena cava: IVC filter. Thyroid: Thyroid nodule measuring 2.3 x 3.7 cm in the isthmus. Lungs: Unremarkable. No consolidation. No masses. Pleural space: Unremarkable. No pneumothorax. No pleural effusion. Heart: Unremarkable. No cardiomegaly. No pericardial effusion. Gallbladder and bile ducts: Cholecystectomy clips. Lymph nodes: Unremarkable. No enlarged lymph nodes. Bones/joints: Unremarkable. No acute fracture. Soft tissues: Unremarkable. IMPRESSION: Small acute pulmonary embolism in the right lower lobe segmental branch. COMMENTS: Consistent with the [employer]'s Incidental Findings Committee white paper (J Am Kiki Radiol 2015): In patients aged 35 years and older with an incidental thyroid nodule equal to or greater than 1.[address], MRI or extrathyroidal US, further evaluation with dedicated thyroid US is recommended for patients with normal life expectancy and without comorbidities. For smaller nodules without suspicious features, no further evaluation or follow up is recommended. Electronically signed by: Gal Delgado On 08/24/2019 20:28:45 PM DD: GAL Mosqueda RAI, DO 08/24/191920 DT: VR 08/24/192027 DS: WINTER 08/24/192027 PROGNOSIS: Fair ACTIVITY: [As tolerated]. DIET: Cardiac diet DISCHARGE PLAN: Home ITEMS TO FOLLOWUP ON ON OUTPATIENT: Follow-up with urologist, PCP DISCHARGE CONDITION: [Stable]. TIME SPENT ON DISCHARGE: Greater than 20 minutes. Vital Signs/I&Os Vital Signs Date Time Temp Pulse Resp B/P (MAP) Pulse Ox O2 Delivery O2 Flow Rate FiO2 09/06/19 06:00 97.3 73 15 134/75 (94) 97 Nasal Cannula 2.0 I&O- Last 24 Hours up to 6 AM 09/06/19 06:00 Intake Total 1170 ml Output Total 725 ml Balance 445 ml Discharge Medications Scheduled Ascorbic Acid (Ascorbic Acid) 500 Mg Tab, 500 MG PO QHS, (Reported) Cholecalciferol (Vitamin D3) (Vitamin D3) 1,000 Unit Tablet, 1,000 UNITS PO DAILY, (Reported) Cyanocobalamin (Vitamin B-12) (Vitamin B-12) 1,000 Mcg Tablet, 1,000 MCG PO DAILY, (Reported) Gluc Gilliam/Chondro Gilliam A/Vit C/Mn (Glucosamine Chondroitin Tab) 1 Each Tablet, 2 TAB PO DAILY, (Reported) Glucosamine/D3/Boswellia Liss (Osteo Bi-Flex Tablet) 1 Each Tablet, 1 EACH PO DAILY, (Reported) Linezolid (Linezolid) 600 Mg Tablet, 600 MG PO BID Nystatin (Nystop) 60 Gm Powder, 0 DOSE TOP QID Pantoprazole Sodium (Pantoprazole Sodium) 40 Mg Tab, 40 MG PO DAILY, (Reported) Rivaroxaban (Xarelto) 15 Mg Tablet, 15 MG PO BID@,18 Torsemide (Torsemide) 20 Mg Tablet, 20 MG PO DAILY Tramadol HCl (Tramadol HCl ER) 100 Mg Tbmp.24hr, 200 MG PO QHS Scheduled PRN Acetaminophen (Acetaminophen) 500 Mg Tablet, 1,000 MG PO BID PRN for PAIN, (Reported) Allergies Coded Allergies: Cephalosporins (Verified Allergy, Unknown, rash, 08/24/19) Penicillins (Verified Allergy, Unknown, makes me break out in convulsions, 08/24/19) aspirin (Verified Allergy, Unknown, my mother told me, I don't know, 08/24/19) atorvastatin (Verified Allergy, Unknown, myalgia, 08/24/19) ciprofloxacin (Verified Allergy, Unknown, rash, 08/24/19) pravastatin (Verified Allergy, Unknown, myalgia, 08/24/19) BORIS HAGAN DO Sep 06, 2019 11:43
== END 2019-09-06 15:08 | disposition home or self-care (01) | DRG 987 ==
LOC: M ED 16:02 → M ED INP 23:01 → ENRESERV 08-25 01:57 → M MSPAV 08-25 02:55
PROVIDERS: ADMIT Internal Medicine; ATTEND Internal Medicine
PROC: 0T768DZ Dilation of Right Ureter with Intraluminal Device, Via Natural or Artificial Opening Endoscopic (ICD-10-PCS; 2019-09-01)
PROC: 0TC68ZZ Extirpation of Matter from Right Ureter, Via Natural or Artificial Opening Endoscopic (ICD-10-PCS; principal; 2019-09-01 12:45)
DX: M79.3 Panniculitis, unspecified (principal); I50.31 Acute diastolic (congestive) heart failure; I26.99 Other pulmonary embolism without acute cor pulmonale; L03.315 Cellulitis of perineum; Z68.43 Body mass index [BMI] 50.0-59.9, adult; N13.30 Unspecified hydronephrosis; N39.0 Urinary tract infection, site not specified; L03.311 Cellulitis of abdominal wall; R31.9 Hematuria, unspecified; B96.1 Klebsiella pneumoniae [K. pneumoniae] as the cause of diseases classified elsewhere; Z87.891 Personal history of nicotine dependence; K21.9 Gastro-esophageal reflux disease without esophagitis; E66.9 Obesity, unspecified; R26.81 Unsteadiness on feet; E55.9 Vitamin D deficiency, unspecified; Z96.0 Presence of urogenital implants; Z90.79 Acquired absence of other genital organ(s); Z90.49 Acquired absence of other specified parts of digestive tract; Z88.1 Allergy status to other antibiotic agents; Z79.899 Other long term (current) drug therapy; Z88.0 Allergy status to penicillin; Z88.3 Allergy status to other anti-infective agents; Z88.8 Allergy status to other drugs, medicaments and biological substances; R20.2 Paresthesia of skin; R06.00 Dyspnea, unspecified; L30.4 Erythema intertrigo; B37.9 Candidiasis, unspecified; N20.0 Calculus of kidney; K59.00 Constipation, unspecified; Z72.3 Lack of physical exercise; K76.0 Fatty (change of) liver, not elsewhere classified

== ENCOUNTER → 2019-09-13 | Outpatient (CLI) | payer MEDICARE, BC, OTHER ==
[~2019-09-13] MED LIST changes: +ACET-683 PO; +CYAN100050 PO; +GLUC1TAB58 PO; +GLUCTAB6 PO; +LINE1TAB6 PO; +NYST10006 TOP; +TORS20TA2 PO; +TRAM10TAER PO; +VITAD1000T PO; +XARE15TA PO
== END ==
LOC: M LABSMTC 11:43
PROVIDERS: ATTEND Family Medicine
DX: Z11.59 Encounter for screening for other viral diseases (principal); Z20.828 Contact with and (suspected) exposure to other viral communicable diseases

== ENCOUNTER 2019-09-18 11:34 | Inpatient (IN) | payer MEDICARE, BC, OTHER ==
[~2019-09-18] VITALS: Ht 160 cm; Wt 121.7 kg
[2019-09-18] MEDS ORDERED: ACETAMINOPHEN TAB 650MG DOSE (2X325MG) PO ONE (12:30)
[2019-09-18] MEDS ORDERED: NS 1,000 ML IV ONE (12:30)
--- NOTE | 2019-09-18 12:44 | REP ---
Portable chest x-ray: Single view. History: Lethargy. Comparison chest x-ray: April 21, 2018. Findings: Monitoring electrodes are seen. The lungs are well inflated and clear. The pleural angles are sharp. Heart size is normal. Pulmonary vasculature is not increased. No significant bony abnormality. Impression: Negative portable chest x-ray. Electronically Signed by Merritt Mccoy MD 09/18/2019 12:35 P
[2019-09-18 13:58] LABS: BASO # 0.1 10^3/uL (0.0-0.2); BASO % 0.3 % (0.0-1.0); EOS # 0.1 10^3/uL (0.0-0.5); EOS % 0.4 % (0.0-3.0); HEMATOCRIT 35.6 % (36.0-47.0); HEMOGLOBIN 10.7 g/dl (12.0-15.5); LYMPH # 1.9 10^3/uL (1.5-5.0); MEAN CORPUSCULAR HEMOGLOBIN 28.1 pg (27.0-33.0); MEAN CORPUSCULAR HGB CONC 30.1 g/dl (32.0-36.5); MEAN CORPUSCULAR VOLUME 93.4 fl (80.0-96.0); MONO # 1.6 10^3/uL (0.0-0.8); MONO % 10.9 % (0.0-5.0); NEUTROPHILS # 10.6 10^3/uL (1.5-8.5); NEUTROPHILS % 74.1 % (36.0-66.0); PLATELET COUNT, AUTOMATED 383 10^3/uL (150-450); RED BLOOD COUNT 3.81 10^6/uL (4.00-5.40); WHITE BLOOD COUNT 14.3 10^3/uL (4.0-10.0)
[2019-09-18 14:21] LABS: ALBUMIN 3.1 GM/DL (3.2-5.2); ALT/SGPT 20 U/L (12-78); BILIRUBIN,DIRECT 0.3 MG/DL (0.0-0.2); BILIRUBIN,TOTAL 0.7 MG/DL (0.2-1.0); BLOOD UREA NITROGEN 15 MG/DL (7-18); CALCIUM LEVEL 9.6 MG/DL (8.8-10.2); CARBON DIOXIDE LEVEL 37 MEQ/L (21-32); CHLORIDE LEVEL 99 MEQ/L (98-107); CREATININE FOR GFR 0.94 MG/DL (0.55-1.30); GLOMERULAR FILTRATION RATE > 60.0 (>39); GLUCOSE, FASTING 152 MG/DL (70-100); LIPASE 363 U/L (73-393); POTASSIUM SERUM 3.2 MEQ/L (3.5-5.1); SODIUM LEVEL 137 MEQ/L (136-145); TOTAL PROTEIN 8.1 GM/DL (6.4-8.2)
[2019-09-18] MEDS ORDERED: NYST1POW9 TOP (16:07)
[2019-09-18] MEDS ORDERED: XARE15TA PO (16:07)
[2019-09-18 16:45] VITALS: BP 132/66
--- NOTE | 2019-09-18 16:53 | REP ---
RENAL ULTRASOUND: Real-time sonographic evaluation of the kidneys performed. The kidneys are normal in size and echotexture, right kidney measuring 11.4 x 4.3 x 5.0 cm and left kidney 11.8 x 4.2 x 5.7 cm. There is no hydronephrosis bilaterally. Right ureteral stent is not well seen. No renal mass is seen. Urinary bladder is mildly distended and is not well evaluated due to patient body habitus. IMPRESSION: No hydronephrosis. Right ureteral stent is not well visualized. Electronically Signed by Anders Vincent MD 09/19/2019 10:34 A
[2019-09-18] MEDS ORDERED: COMBIVENT RESPIMAT 100-20MCG INHALER 4GM INH PRN (18:00)
[2019-09-18] MEDS ORDERED: ALBUTEROL 90 MCG/ACT 8GM HFA INHALER INH PRN (18:00)
[2019-09-18] MEDS ORDERED: ACETAMINOPHEN TAB 650MG DOSE (2X325MG) PO PRN (18:00)
[2019-09-18] MEDS: VITAMIN D 1,000 INTERNATIONAL UNITS TABLET PO SCH ×2 (18:05→18:53)
--- NOTE | 2019-09-18 18:32 | HPEPDOC ---
[facility] Medical History & Physical Date of Admission Sep 18, 2019 Date of Service: Sep 18, 2019 Attending Physician: KISHORE GUEVARA MD History and Physical CHIEF COMPLAINT: Fever HISTORY OF PRESENT ILLNESS: Patient is a 74-year-old female with history of PE on Xarelto, nephrolithiasis, GERD, morbid obesity (BMI 46), who presents from urology clinic for fever. Briefly, Ms. Zayas was admitted on 08/24/19 with a suprapubic cellulitis and started on IV antibiotics. she was found to have an acute pulmonary embolism and was restarted on her Xarelto which she had stopped previously due hematuria. The hematuria returned. A right kidney stone was identified on several imaging studies and so urology was consulted. Dr. Martinez saw the patient and performed a cystoscopy and right ureteroscopy with a lithotripsy and basket extraction of stones and right ureter stent placement. Her cellulitis slowly improved and she was transitioned over to oral linezolid to complete a total of 14 days of therap y. Pt discharged home on 09/06/19 with follow up with urology and PCP. Patient says after leaving the hospital she took her antibiotics as prescribed. Patient states she wasn't feeling well when she left the hospital. Patient states she then noted new hot and cold spells, night sweats, which have been going on for a few days. Patient states she was unable take her temperature because she did not have a working thermometer. Patient with urology clinic to have stent removed and was found to have a fever and so sent to the ER for further radiation treatment. Patient endorses feeling "crummy" but denies any other symptoms of cough, nasal congestion, chest pain, difficulty breathing, nausea, vomiting, abdominal pain, dysuria, leg pain. Patient says she's been having diarrhea such left hospital 2 weeks ago and has chronic leg swelling. Of note: While inpatient patient came in contact with a nurse who tested positive for COVID19. PAST MEDICAL HISTORY: History of PE, on Xarelto History of Nephrolithiasis GERD Morbid Obesity (BMI 46) Unsteady gait, uses cane History of Lyme's disease Vitamin D deficiency PAST SURGICAL HISTORY: Bladder suspension surgery Tubal ligation Hysterectomy Cholecystectomy Appendectomy SOCIAL HISTORY: Lives alone Former smoker Denies alcohol Denies illicits FAMILY HISTORY: Denies any pertinent family history ALLERGIES: Please see below. REVIEW OF SYSTEMS: 14 point ROS reviewed and pertinent positives and negatives documented as per HPI. All other reviewed ROS negative. HOME MEDICATIONS: Please see below. PHYSICAL EXAMINATION: VITAL SIGNS: See below Morbidly, obese female laying in bed in no acute distress, audible wheeze, appears slightly diaphoretic PERRLA, EOMI, OP clear, dry mucous membrane No lymphadenopathy appreciated. RRR, normal S1/2, + murmur, no RG. Wheeze throughout, no rales or rhonchi. Soft, obese, nontender, nondistended. 2+ lower extremity edema bilaterally, exquisite tenderness bilaterally, intact but faint distal pulses No skin breakdown No focal deficits appreciated, normal speech. AAO 3, appropriate LABORATORY DATA: See below. IMAGING: Chest x-ray (my read): Clear CP angles, no acute cardiopulmonary disease iden tified MICROBIOLOGY: Please see below. ASSESSMENT: Patient is a 74-year-old female with history of PE on Xarelto, nephrolithiasis, GERD, morbid obesity (BMI 46), who presents from urology clinic for fever. Patient found to have a dirty UA in the setting of recent ureteral stent placement, now presenting with fever and white count 14 consistent with sepsis due to urinary source. Patient also with exposure to Covid-19 positive nurse with fever and wheeze with history of feeling "crummy" therefore Covid-19, must be ruled out. . PLAN: #Sepsis due to urinary source/pyelonephritis Admit to inpatient with telemetry. Start meropenem given allergy to penicillin, cephalosporins and ciprofloxacin (discussed with pharmacy). Prior urine culture so Klebsiella relatively sensitive Follow-up blood cultures. Follow-up urine culture. Trend fever curve Tylenol for fever. Trend WBC Urology consult in the a.m. Intravenous fluids. #Possible Covid-19 Supportive care. Monitor respiratory status with low threshold to transfer to ICU if oxygen requirement increases Follow-up Covid19 test Supplemental O2 as needed. Albuterol and Combivent inhalers when necessary #Hypokalemia. Replete potassium. Trend BMP Check magnesium level #Acute PE on Xarelto Continue Xarelto Monitor respiratory status #Morbid obesity. Lifestyle modification discussion on discharge. Cardiac diet while inpatient Care management consult. DVT PPX: On Xarelto Disposition: Pending symptomatic improvement and urology consult Vital Signs Vital Signs Date Time Temp Pulse Resp B/P (MAP) Pulse Ox O2 Delivery O2 Flow Rate FiO2 09/18/19 16:45 99.4 86 20 132/66 (88) 93 Room Air 09/18/19 15:50 2.0 Laboratory Data Labs 24H Laboratory Tests 2 09/18/19 13:46: Immature Granulocyte % (Auto) 1.3, Neutrophils (%) (Auto) 74.1H, Lymphocytes (%) (Auto) 13.0L, Monocytes (%) (Auto) 10.9H, Eosinophils (%) (Auto) 0.4, Basophils (%) (Auto) 0.3, Neutrophils # (Auto) 10.6H, Lymphocytes # (Auto) 1.9, Monocytes # (Auto) 1.6H, Eosinophils # (Auto) 0.1, Basophils # (Auto) 0.1, Nucleated Red Blood Cells % (auto) 0.0, Urine Color KALYANI, Urine Appearance CLOUDYH, Urine pH 6.0, Urine Specific [place] 1.012, Urine Protein 1+H, Urine Glucose (UA) NEGATIVE, Urine Ketones NEGATIVE, Urine Blood NEGATIVE, Urine Nitrite POSITIVEH, Urine Bilirubin NEGATIVE, Urine Urobilinogen 0.2, Urine Leukocyte Esterase 3+H, Urine WBC (Auto) TNTCH, Urine RBC (Auto) 10H, Urine Hyaline Casts (Auto) 0, Urine Bacteria (Auto) 3+H, Urine Squamous Epithelial Cells 1, Urine Mucus (Auto) SMALL, Urine Yeast-Like Cells (Auto) SMALLH, Urine Sperm (Auto) , Anion Gap 1L, Glomerular Filtration Rate > 60.0, Lactic Acid Level 1.1, Calcium Level 9.6, Total Bilirubin 0.7, Direct Bilirubin 0.3H, Aspartate Amino Transf (AST/SGOT) 22, Alanine Aminotransferase (ALT/SGPT) 20, Alkaline Phosphatase 75, Total Protein 8.1, Albumin 3.1L, Albumin/Globulin Ratio 0.62L, Lipase 363 CBC/BMP Laboratory Tests 09/18/19 13:46 Microbiology Microbiology 09/18/19 Blood Culture, Received Pending 09/18/19 Urine Culture, Received Pending 09/18/19 Coronavirus COVID-19 PCR (ISMA), Received Pending 09/18/19 Respiratory Panel (PCR) - Final, Complete 09/18/19 Blood Culture, Received Pending Home Medications Scheduled Ascorbic Acid (Ascorbic Acid) 500 Mg Tab, 1,000 MG PO QHS Cholecalciferol (Vitamin D3) (Vitamin D3) 1,000 Unit Tablet, 2,000 UNITS PO DAILY Cyanocobalamin (Vitamin B-12) (Vitamin B-12) 1,000 Mcg Tablet, 1,000 MCG PO DAILY Glucosamine/D3/Boswellia Liss (Osteo Bi-Flex Tablet) 1 Each Tablet, 1 EACH PO DAILY Nystatin (Nystatin Powder) 15 Gm Powder, 1 APLCT TOP QID applies to groin area Pantoprazole Sodium (Pantoprazole Sodium) 40 Mg Tab, 40 MG PO DAILY Rivaroxaban (Xarelto) 15 Mg Tablet, 15 MG PO BID Scheduled PRN Acetaminophen (Acetaminophen) 500 Mg Tablet, 1,000 MG PO BID PRN for PAIN Allergies Coded Allergies: Cephalosporins (Verified Allergy, Unknown, rash, 08/24/19) Penicillins (Verified Allergy, Unknown, makes me break out in convulsions, 08/24/19) aspirin (Verified Allergy, Unknown, my mother told me, I don't know, 08/24/19) atorvastatin (Verified Allergy, Unknown, myalgia, 08/24/19) ciprofloxacin (Verified Allergy, Unknown, rash, 08/24/19) pravastatin (Verified Allergy, Unknown, myalgia, 08/24/19) A-FIB/CHADSVASC A-FIB History Current/History of A-Fib/PAF?: No Current PO Anticoag Therapy: Yes KISHORE GUEVARA MD Sep 18, 2019 18:32
[2019-09-18] MEDS ORDERED: POTASSIUM CHLORIDE 10 MEQ SR TABLET PO ONE (18:45)
[2019-09-18] MEDS: PANTOPRAZOLE 40MG TAB (PROTONIX) PO SCH (18:53)
[2019-09-18] MEDS: MEROPENEM INJ 1 GM in IV 1 EA IV SCH (18:53)
[2019-09-18] MEDS ORDERED: NS 1,000 ML IV SCH (19:00)
[2019-09-18 20:00] VITALS: BP 160/60
[2019-09-18] MEDS: RIVAROXABAN 15 MG TAB (XARELTO) PO SCH (20:38)
[2019-09-18] MEDS: ASCORBIC ACID 500 MG TAB PO SCH (20:38)
[2019-09-18] MEDS: NYSTATIN 100,000 UNITS/GM TOPICAL PWD 15 GM TOP SCH (20:39)
[2019-09-19] VITALS: BP 150/70
[2019-09-19] MEDS: ACETAMINOPHEN TAB 650MG DOSE (2X325MG) PO PRN ×2 (00:48→14:04)
[2019-09-19 04:00] VITALS: BP 138/62
[2019-09-19 05:47] LABS: HEMATOCRIT 34.1 % (36.0-47.0); HEMOGLOBIN 10.4 g/dl (12.0-15.5); MEAN CORPUSCULAR HEMOGLOBIN 28.7 pg (27.0-33.0); MEAN CORPUSCULAR HGB CONC 30.5 g/dl (32.0-36.5); MEAN CORPUSCULAR VOLUME 93.9 fl (80.0-96.0); PLATELET COUNT, AUTOMATED 338 10^3/uL (150-450); RED BLOOD COUNT 3.63 10^6/uL (4.00-5.40); WHITE BLOOD COUNT 12.7 10^3/uL (4.0-10.0)
[2019-09-19 05:59] LABS: BLOOD UREA NITROGEN 10 MG/DL (7-18); CALCIUM LEVEL 8.6 MG/DL (8.8-10.2); CARBON DIOXIDE LEVEL 31 MEQ/L (21-32); CHLORIDE LEVEL 105 MEQ/L (98-107); GLOMERULAR FILTRATION RATE > 60.0 (>39); GLUCOSE, FASTING 142 MG/DL (70-100); MAGNESIUM LEVEL 1.7 MG/DL (1.8-2.4); POTASSIUM SERUM 3.3 MEQ/L (3.5-5.1); SODIUM LEVEL 139 MEQ/L (136-145)
[2019-09-19] MEDS: MEROPENEM INJ 1 GM in IV 1 EA IV SCH ×2 (06:25→18:54)
[2019-09-19] MEDS ORDERED: MAG SULF 1GM/100ML (MAG RUN) 1 GM in IV 1 EA IV ONE (07:15)
[2019-09-19 08:00] VITALS: BP 156/68
--- NOTE | 2019-09-19 08:32 | ECGEPIP ---
[facility] - ED Test Date: 2019-09-18 Pat Name: CAITLIN RODRIGUEZ Department: Room: - Gender: Female Corn Detasseler: GERTRUDIS : 1945 Requested By: Andi Jordan Order Number: [id number] Reading MD: Andi Garcia Measurements Intervals Call Rate: 91 P: 73 NH: 195 QRS: 43 QRSD: 101 T: 60 QT: 356 QTc: 438 Interpretive Statements SINUS RHYTHM POOR R WAVE PROGRESSION SIMILAR TO 03/01/18 Electronically Signed on 09-19-2019 8:32:42 EDT by Andi Garcia
[2019-09-19] MEDS: VITAMIN D 1,000 INTERNATIONAL UNITS TABLET PO SCH (09:12)
[2019-09-19] MEDS: POTASSIUM CHLORIDE 10 MEQ SR TABLET PO SCH (09:12)
[2019-09-19] MEDS: PANTOPRAZOLE 40MG TAB (PROTONIX) PO SCH (09:12)
[2019-09-19] MEDS: RIVAROXABAN 15 MG TAB (XARELTO) PO SCH ×2 (09:12→20:40)
[2019-09-19] MEDS: NYSTATIN 100,000 UNITS/GM TOPICAL PWD 15 GM TOP SCH ×4 (09:13→20:40)
[2019-09-19] MEDS ORDERED: SLF 3 ML SYR IV PRN (11:15)
[2019-09-19 11:23] VITALS: BP 132/58
--- NOTE | 2019-09-19 11:45 | IPNPDOC ---
Text Note Date of Service The patient was seen on 09/19/19. NOTE Subjective: had low grade fever 100.3 last night . Has mild discomfort in the perineal area, denies any chest pain or sob , denies any abdominal pain. SHe is morbidly obese but never tested for sleep apnea. Complains of pain on the right foot where she says her walker had fallen. PHYSICAL EXAMINATION: VITAL SIGNS: See below Morbidly, obese female laying in bed in no acute distress, audible wheeze with abdominal breathing. PERRLA, EOMI, OP clear, dry mucous membrane No lymphadenopathy appreciated. RRR, normal S1/2, no murmur, no Rub or Gallop. Wheeze throughout, no rales or ronchi. Soft, obese, nontender, nondistended, bowel sounds normal lower extremity edema bilaterally, exquisite tenderness bilaterally, right dorsum swollen and bruised. No skin breakdown No focal deficits appreciated, normal speech. AAO 3, appropriate LABS and radiology: reviewed Assessment and Plan: This is a 74-year-old female with history of Morbid obesity, DVT on Xarelto, Recent PE after self stopping of xarelto due to hematuria at home , nephrolithiasis, GERD, morbid obesity (BMI 46), who presents from urology clinic for fever and lethargy. Ms. Zayas was admitted on 08/24/19 with a suprapubic cellulitis , perineal candidiasis, and started on IV antibiotics. She was found to have an acute pulmonary embolism and was restarted on her Xarelto which she had stopped previously due hematuria. The hematuria returned. A right kidney stone was identified on several imaging studies and so urology was consulted. Dr. Martinez saw the patient and performed a cystoscopy and right ureteroscopy with a lithotripsy and basket extraction of stones and right ureter stent placement. Her cellulitis slowly improved and she was transitioned over to oral linezolid for culture of E faecalis to complete a total of 14 days of therapy. Pt discharged home on 09/06/19 with follow up with urology and PCP. Patient says after leaving the hospital she took her antibiotics as prescribed. Patient states she wasn't feeling well when she left the hospital. Patient states she then noted new hot and cold spells, night sweats, which have been going on for a few days. Patient states she was unable take her temperature because she did not have a working thermometer. Patient went to urology clinic for scheduled stent removal and was found to have a fever and noted to be lethargic and so sent to the ER for further evaluation and treatment. Of note: While inpatient patient came in contact with a nurse who tested positive for COVID19. Her rsp panel is negative, her COVID -19 test is in progress. Patient found to have a dirty UA in the setting of recent ureteral stent placement, now presenting with fever and white count 14 consistent with sepsis due to urinary source. Patient also with exposure to Covid-19 positive nurse with fever and wheeze with history of feeling "crummy" therefore Covid-19, must be ruled out. Sepsis due to urinary source/pyelonephritis with stent in place on meropenum. blood and urine cultures pending. #Possible Covid-19 Supportive care. Monitor respiratory status with low threshold to transfer to ICU if oxygen requirement increases Follow-up Covid19 test Supplemental O2 as needed. Albuterol and Combivent inhalers when necessary Nephrolithiasis s/p recent lithotripsy and right ureteral stent placement. Hypokalemia. replaced Hypomagnesemia replaced Acute PE on Xarelto Continue Xarelto Monitor respiratory status H/o DVT in the remote past on xarelto Morbid obesity. Lifestyle modification discussion on discharge. -monitor for possible underlying OMER Intertriginal candidiasis continue nystatin powder. DVT PPX: On Xarelto VS,Fishbone, I+O VS, Fishbone, I+O Laboratory Tests 09/18/19 13:46 09/19/19 05:09 Vital Signs Date Time Temp Pulse Resp B/P (MAP) Pulse Ox O2 Delivery O2 Flow Rate FiO2 09/19/19 08:00 98.4 101 18 156/68 (97) 92 Room Air 09/18/19 15:50 2.0 I&O- Last 24 Hours up to 6 AM 09/19/19 05:59 Intake Total 2490 ml Output Total 250 ml Balance 2240 ml DANIELLE ROTH MD Sep 19, 2019 11:20
[2019-09-19] MEDS: SLF 3 ML SYR IV SCH ×2 (12:48→20:40)
[2019-09-19] MEDS: COMBIVENT RESPIMAT 100-20MCG INHALER 4GM INH SCH ×2 (13:34→20:03)
[2019-09-19 15:25] VITALS: BP 142/62
[2019-09-19 20:00] VITALS: BP 122/54
[2019-09-19] MEDS: ASCORBIC ACID 500 MG TAB PO SCH (20:40)
[2019-09-19] MEDS ORDERED: diphenhydrAMINE 25MG CAP PO ONE (20:45)
[2019-09-20] VITALS: BP 128/52
[2019-09-20] MEDS: ACETAMINOPHEN TAB 650MG DOSE (2X325MG) PO PRN (00:50)
[2019-09-20] MEDS: COMBIVENT RESPIMAT 100-20MCG INHALER 4GM INH SCH ×3 (01:36→19:26)
[2019-09-20] MEDS: MEROPENEM INJ 1 GM in IV 1 EA IV SCH ×2 (06:04→18:30)
[2019-09-20] MEDS: SLF 3 ML SYR IV SCH ×3 (06:05→20:15)
[2019-09-20 06:52] LABS: HEMATOCRIT 34.4 % (36.0-47.0); HEMOGLOBIN 10.1 g/dl (12.0-15.5); MEAN CORPUSCULAR HEMOGLOBIN 27.8 pg (27.0-33.0); MEAN CORPUSCULAR HGB CONC 29.4 g/dl (32.0-36.5); MEAN CORPUSCULAR VOLUME 94.8 fl (80.0-96.0); PLATELET COUNT, AUTOMATED 326 10^3/uL (150-450); RED BLOOD COUNT 3.63 10^6/uL (4.00-5.40); WHITE BLOOD COUNT 11.6 10^3/uL (4.0-10.0)
[2019-09-20 07:19] LABS: BLOOD UREA NITROGEN 7 MG/DL (7-18); CARBON DIOXIDE LEVEL 35 MEQ/L (21-32); CHLORIDE LEVEL 105 MEQ/L (98-107); GLOMERULAR FILTRATION RATE > 60.0 (>39); GLUCOSE, FASTING 124 MG/DL (70-100); MAGNESIUM LEVEL 2.2 MG/DL (1.8-2.4); POTASSIUM SERUM 3.5 MEQ/L (3.5-5.1); SODIUM LEVEL 140 MEQ/L (136-145)
[2019-09-20 08:02] VITALS: BP 146/66
--- NOTE | 2019-09-20 08:46 | REP ---
REASON FOR EXAMINATION: Trauma. Three limited views of the right foot show soft tissue swelling along the anterior surface of the mid foot. There is no evidence of acute fracture. Large plantar and retrocalcaneal heel spurs are present. Electronically Signed by Chetan Pineda DO 09/20/2019 08:57 A
[2019-09-20] MEDS: VITAMIN D 1,000 INTERNATIONAL UNITS TABLET PO SCH (09:09)
[2019-09-20] MEDS: POTASSIUM CHLORIDE 10 MEQ SR TABLET PO SCH (09:10)
[2019-09-20] MEDS: RIVAROXABAN 15 MG TAB (XARELTO) PO SCH ×2 (09:10→20:13)
[2019-09-20] MEDS: PANTOPRAZOLE 40MG TAB (PROTONIX) PO SCH (09:10)
[2019-09-20] MEDS: NYSTATIN 100,000 UNITS/GM TOPICAL PWD 15 GM TOP SCH ×4 (09:18→20:14)
--- NOTE | 2019-09-20 12:26 | IPNPDOC ---
Text Note Date of Service The patient was seen on 09/20/19. NOTE Subjective: No fever last night . Has mild discomfort in the perineal area, de nies any chest pain or sob , denies any abdominal pain. She is morbidly obese but never tested for sleep apnea however has the typical body habitus for it and has abdominal type of breathing. Complains of pain on the right foot where she says her walker had fallen. will get a foot Xray. Her COVID-19 test was negative. PHYSICAL EXAMINATION: VITAL SIGNS: See below Morbidly, obese female laying in bed in no acute distress, audible wheeze with abdominal breathing. PERRLA, EOMI, OP clear, dry mucous membrane No lymphadenopathy appreciated. RRR, normal S1/2, no murmur, no Rub or Gallop. Wheeze throughout, no rales or ronchi. Soft, obese, nontender, nondistended, bowel sounds normal lower extremity edema bilaterally, exquisite tenderness bilaterally, right dorsum swollen and bruised. No skin breakdown No focal deficits appreciated, normal speech. AAO 3, appropriate LABS and radiology: reviewed Assessment and Plan: This is a 74-year-old female with history of Morbid obesity, DVT on Xarelto, Recent PE after self stopping of xarelto due to hematuria at home , nephrolithiasis, GERD, morbid obesity (BMI 46), who presents from urology clinic for fever and lethargy. Ms. Zayas was admitted on 08/24/19 with a suprapubic cellulitis , perineal candidiasis, and started on IV antibiotics. She was found to have an acute pulmonary embolism and was restarted on her Xarelto which she had stopped previously due hematuria. The hematuria returned. A right kidney stone was identified on several imaging studies and so urology was consulted. Dr. Martinez saw the patient and performed a cystoscopy and right ureteroscopy with a lithotripsy and basket extraction of stones and right ureter stent placement. Her cellulitis slowly improved and she was transitioned over to oral linezolid for culture of E faecalis to complete a total of 14 days of therapy. Pt discharged home on 09/06/19 with follow up with urology and PCP. Patient says after leaving the hospital she took her antibiotics as prescribed. Patient states she wasn't feeling well when she left the hospital. Patient states she then noted new hot and cold spells, night sweats, which have been going on for a few days. Patient states she was unable take her temperature because she did not have a working thermometer. Patient went to urology clinic for scheduled stent removal and was found to have a fever and noted to be lethargic and so sent to the ER for further evaluation and treatment. Of note: While inpatient patient came in contact with a nurse who tested positive for COVID19. Her rsp panel is negative, her COVID -19 test is in progress. Patient found to have a dirty UA in the setting of recent ureteral stent placement, now presenting with fever and white count 14 consistent with sepsis due to urinary source. Patient also with exposure to Covid-19 positive nurse with fever and wheeze with history of feeling "crummy" therefore Covid-19, must be ruled out. Sepsis due to urinary source/pyelonephritis with stent in place on meropenum. blood cultures negative till date urine cultures pending. COVID-19 ruled out. right foot trauma walker fell on the foot will get xray Nephrolithiasis s/p recent lithotripsy and right ureteral stent placement. Hypokalemia. replaced Hypomagnesemia replaced Acute PE on Xarelto Continue Xarelto Monitor respiratory status H/o DVT in the remote past on xarelto Morbid obesity. Lifestyle modification discussion on discharge. monitor for possible underlying OMER Intertriginal candidiasis continue nystatin powder. DVT PPX: On Xarelto VS,Fishbone, I+O VS, Fishbone, I+O Laboratory Tests 09/20/19 06:32 Vital Signs Date Time Temp Pulse Resp B/P (MAP) Pulse Ox O2 Delivery O2 Flow Rate FiO2 09/20/19 07:18 32 09/20/19 00:00 98.6 89 128/52 (77) 91 Room Air 09/18/19 15:50 2.0 I&O- Last 24 Hours up to 6 AM 09/20/19 06:00 Intake Total 1800 ml Output Total 0 ml Balance 1800 ml DANIELLE ROTH MD Sep 20, 2019 07:56
[2019-09-20] MEDS: LACTOBACILLUS ACIDOPHILUS CAP (BACID) PO SCH (18:30)
[2019-09-20] MEDS: ASCORBIC ACID 500 MG TAB PO SCH (20:13)
[2019-09-20 22:00] VITALS: BP 159/69
[2019-09-20] MEDS ORDERED: MAALOX 30 ML SUSP *UDC PO PRN (23:45)
[2019-09-21 06:00] VITALS: BP 137/63
[2019-09-21] MEDS: MEROPENEM INJ 1 GM in IV 1 EA IV SCH ×2 (06:42→18:28)
[2019-09-21] MEDS: SLF 3 ML SYR IV SCH ×3 (06:43→21:10)
[2019-09-21] MEDS: LACTOBACILLUS ACIDOPHILUS CAP (BACID) PO SCH ×2 (08:39→17:30)
[2019-09-21] MEDS: NYSTATIN 100,000 UNITS/GM TOPICAL PWD 15 GM TOP SCH ×4 (08:39→20:04)
[2019-09-21] MEDS: POTASSIUM CHLORIDE 10 MEQ SR TABLET PO SCH (08:39)
[2019-09-21] MEDS: PANTOPRAZOLE 40MG TAB (PROTONIX) PO SCH (08:40)
[2019-09-21] MEDS: VITAMIN D 1,000 INTERNATIONAL UNITS TABLET PO SCH (08:40)
[2019-09-21] MEDS: RIVAROXABAN 15 MG TAB (XARELTO) PO SCH ×2 (08:40→20:03)
[2019-09-21] MEDS: COMBIVENT RESPIMAT 100-20MCG INHALER 4GM INH SCH ×3 (08:43→19:57)
[2019-09-21 14:00] VITALS: BP 145/61
--- NOTE | 2019-09-21 19:20 | IPNPDOC ---
Text Note Date of Service The patient was seen on 09/21/19. NOTE Subjective: Feeling much better today. However did say was having some breathing difficulty last night so used oxygen. Also complaining of some leg swelling. PHYSICAL EXAMINATION: VITAL SIGNS: See below Morbidly, obese female laying in bed in no acute distress, audible wheeze with abdominal breathing. PERRLA, EOMI, OP clear, dry mucous membrane No lymphadenopathy appreciated. RRR, normal S1/2, no murmur, no Rub or Gallop. Wheeze throughout, no rales or ronchi. Soft, obese, nontender, nondistended, bowel sounds normal lower extremity edema bilaterally, exquisite tenderness bilaterally, right dorsum swollen and bruised. No skin breakdown No focal deficits appreciated, normal speech. AAO 3, appropriate LABS and radiology: reviewed Assessment and Plan: This is a 74-year-old female with history of Morbid obesity, DVT on Xarelto, Recent PE after self stopping of xarelto due to hematuria at home , nephrolithiasis, GERD, morbid obesity (BMI 46), who presents from urology clinic for fever and lethargy. Ms. Zayas was admitted on 08/24/19 with a suprapubic cellulitis , perineal candidiasis, and started on IV antibiotics. She was found to have an acute pulmonary embolism and was restarted on her Xarelto which she had stopped previously due hematuria. The hematuria returned. A right kidney stone was identified on several imaging studies and so urology was consulted. Dr. Martinez saw the patient and performed a cystoscopy and right ureteroscopy with a lithotripsy and basket extraction of stones and right ureter stent placement. Her cellulitis slowly improved and she was transitioned over to oral linezolid for culture of E faecalis to complete a to yobani of 14 days of therapy. Pt discharged home on 09/06/19 with follow up with urology and PCP. Patient says after leaving the hospital she took her antibiotics as prescribed. Patient states she wasn't feeling well when she left the hospital. Patient states she then noted new hot and cold spells, night sweats, which have been going on for a few days. Patient states she was unable take her temperature because she did not have a working thermometer. Patient went to urology clinic for scheduled stent removal and was found to have a fever and noted to be lethargic and so sent to the ER for further evaluation and treatment. Of note: While inpatient patient came in contact with a nurse who tested positive for COVID19. Her rsp panel is negative, her COVID -19 test is in progress. Patient found to have a dirty UA in the setting of recent ureteral stent placement, now presenting with fever and white count 14 consistent with sepsis due to urinary source. Patient also with exposure to Covid-19 positive nurse with fever and wheeze with history of feeling "crummy" therefore Covid-19, must be ruled out. Sepsis due to urinary source/pyelonephritis with stent in place on meropenum. blood cultures negative till date urine cultures Psuedomonas and Ecoli COVID-19 ruled out. Right foot trauma walker fell on the foot Xray no fracture. Nephrolithiasis s/p recent lithotripsy and right ureteral stent placement. discussed with Dr Martinez to follow up in office next week for removal. Hypokalemia. replaced Hypomagnesemia replaced Acute PE on Xarelto Continue Xarelto Monitor respiratory status H/o DVT in the remote past on xarelto Morbid obesity. Lifestyle modification discussion on discharge. monitor for possible underlying OMER Intertriginal candidiasis continue nystatin powder. DVT PPX: On Xarelto VS,Fishbone, I+O VS, Fishbone, I+O Vital Signs Date Time Temp Pulse Resp B/P (MAP) Pulse Ox O2 Delivery O2 Flow Rate FiO2 09/21/19 14:00 98.7 86 20 145/61 (89) 94 Room Air 09/18/19 15:50 2.0 I&O- Last 24 Hours up to 6 AM 09/21/19 06:00 Intake Total 1213 ml Output Total 550 ml Balance 663 ml DANIELLE ROTH MD Sep 21, 2019 19:20
[2019-09-21] MEDS: ASCORBIC ACID 500 MG TAB PO SCH (20:03)
[2019-09-22] MEDS: COMBIVENT RESPIMAT 100-20MCG INHALER 4GM INH SCH ×4 (01:20→19:30)
[2019-09-22 06:00] VITALS: BP 159/71
[2019-09-22] MEDS ORDERED: FUROSEMIDE 40 MG/4 ML VIAL (J1940) IV ONE ×2 (06:00→11:45)
[2019-09-22] MEDS: MEROPENEM INJ 1 GM in IV 1 EA IV SCH ×2 (06:11→18:05)
[2019-09-22] MEDS: SLF 3 ML SYR IV SCH ×3 (06:12→20:51)
[2019-09-22 06:17] LABS: BASO % 0.4 % (0.0-1.0); EOS # 0.3 10^3/uL (0.0-0.5); EOS % 3.4 % (0.0-3.0); HEMATOCRIT 35.2 % (36.0-47.0); HEMOGLOBIN 10.4 g/dl (12.0-15.5); LYMPH # 2.4 10^3/uL (1.5-5.0); LYMPH % 24.1 % (24.0-44.0); MEAN CORPUSCULAR HGB CONC 29.5 g/dl (32.0-36.5); MEAN CORPUSCULAR VOLUME 94.6 fl (80.0-96.0); MONO # 0.6 10^3/uL (0.0-0.8); MONO % 5.5 % (0.0-5.0); NEUTROPHILS # 6.7 10^3/uL (1.5-8.5); NEUTROPHILS % 66.1 % (36.0-66.0); PLATELET COUNT, AUTOMATED 347 10^3/uL (150-450); RED BLOOD COUNT 3.72 10^6/uL (4.00-5.40); WHITE BLOOD COUNT 10.1 10^3/uL (4.0-10.0)
[2019-09-22 06:57] LABS: BLOOD UREA NITROGEN 8 MG/DL (7-18); CALCIUM LEVEL 8.7 MG/DL (8.8-10.2); CARBON DIOXIDE LEVEL 34 MEQ/L (21-32); CHLORIDE LEVEL 104 MEQ/L (98-107); CREATININE FOR GFR 0.66 MG/DL (0.55-1.30); GLOMERULAR FILTRATION RATE > 60.0 (>39); GLUCOSE, FASTING 123 MG/DL (70-100); POTASSIUM SERUM 4.4 MEQ/L (3.5-5.1); SODIUM LEVEL 142 MEQ/L (136-145)
[2019-09-22] MEDS: VITAMIN D 1,000 INTERNATIONAL UNITS TABLET PO SCH (08:37)
[2019-09-22] MEDS: LACTOBACILLUS ACIDOPHILUS CAP (BACID) PO SCH ×2 (08:38→18:05)
[2019-09-22] MEDS: NYSTATIN 100,000 UNITS/GM TOPICAL PWD 15 GM TOP SCH ×4 (08:38→20:50)
[2019-09-22] MEDS: RIVAROXABAN 15 MG TAB (XARELTO) PO SCH ×2 (08:38→20:50)
[2019-09-22] MEDS: PANTOPRAZOLE 40MG TAB (PROTONIX) PO SCH (08:38)
[2019-09-22] MEDS: POTASSIUM CHLORIDE 10 MEQ SR TABLET PO SCH (08:38)
--- NOTE | 2019-09-22 12:26 | IPNPDOC ---
Text Note Date of Service The patient was seen on 09/22/19. NOTE Subjective: Feeling much better today. No SOb last night. did not need any ox ygen. Good response to lasix. Did complain of mild cough this am. Foot pain getting better PHYSICAL EXAMINATION: VITAL SIGNS: See below Morbidly, obese female laying in bed in no acute distress, audible wheeze with abdominal breathing. PERRLA, EOMI, OP clear, dry mucous membrane No lymphadenopathy appreciated. RRR, normal S1/2, no murmur, no Rub or Gallop. Wheeze throughout, no rales or ronchi. Soft, obese, nontender, nondistended, bowel sounds normal lower extremity edema bilaterally, exquisite tenderness bilaterally, right dorsum swollen and bruised. No skin breakdown No focal deficits appreciated, normal speech. AAO 3, appropriate LABS and radiology: reviewed Assessment and Plan: This is a 74-year-old female with history of Morbid obesity, DVT on Xarelto, Recent PE after self stopping of xarelto due to hematuria at home , nephrolithiasis, GERD, morbid obesity (BMI 46), who presents from urology clinic for fever and lethargy. Ms. Zayas was admitted on 08/24/19 with a suprapubic cellulitis , perineal candidiasis, and started on IV antibiotics. She was found to have an acute pulmonary embolism and was restarted on her Xarelto which she had stopped previously due hematuria. The hematuria returned. A right kidney stone was identified on several imaging studies and so urology was consulted. Dr. Martinez saw the patient and performed a cystoscopy and right ureteroscopy with a lithotripsy and basket extraction of stones and right ureter stent placement. Her cellulitis slowly improved and she was transitioned over to oral linezolid for culture of E faecalis to complete a total of 14 days of therapy. Pt discharged home on 09/06/19 with follow up with urology and PCP. Patient says after leaving the hospital she took her antibiotics as prescribed. Patient states she wasn't feeling well when she left the hospital. Patient states she then noted new hot and cold spells, night sweats, which have been going on for a few days. Patient states she was unable take her temperature because she did not have a working thermometer. Patient went to urology clinic for scheduled stent removal and was found to have a fever and noted to be lethargic and so sent to the ER for further evaluation and treatment. Of note: While inpatient patient came in contact with a nurse who tested positive for COVID19. Her rsp panel is negative, her COVID -19 test is in progress. Patient found to have a dirty UA in the setting of recent ureteral stent placement, now presenting with fever and white count 14 consistent with sepsis due to urinary source. Patient also with exposure to Covid-19 positive nurse with fever and wheeze with history of feeling "crummy" therefore Covid-19, must be ruled out. Sepsis due to urinary source/pyelonephritis with stent in place on meropenum. blood cultures negative till date urine cultures Psuedomonas and Ecoli may be discharged on levofloxcin COVID-19 ruled out. Right foot trauma walker fell on the foot Xray no fracture. Nephrolithiasis s/p recent lithotripsy and right ureteral stent placement. discussed with Dr Martinez to follow up in office next week for removal. Hypokalemia. replaced Hypomagnesemia replaced Acute PE on Xarelto Continue Xarelto Monitor respiratory status H/o DVT in the remote past on xarelto Morbid obesity. Lifestyle modification discussion on discharge. monitor for possible underlying OMER Intertriginal candidiasis continue nystatin powder. DVT PPX: On Xarelto VS,Fishbone, I+O VS, Fishbone, I+O Laboratory Tests 09/22/19 05:52 Vital Signs Date Time Temp Pulse Resp B/P (MAP) Pulse Ox O2 Delivery O2 Flow Rate FiO2 09/22/19 06:00 97.4 85 18 159/71 (100) 96 09/21/19 14:00 Room Air 09/18/19 15:50 2.0 I&O- Last 24 Hours up to 6 AM 09/22/19 06:00 Intake Total 1550 ml Output Total 750 ml Balance 800 ml DANIELLE ROTH MD Sep 22, 2019 12:26
[2019-09-22 14:00] VITALS: BP 137/66
[2019-09-22] MEDS: ASCORBIC ACID 500 MG TAB PO SCH (20:50)
[2019-09-22 22:00] VITALS: BP 131/58
[2019-09-23] MEDS: COMBIVENT RESPIMAT 100-20MCG INHALER 4GM INH SCH ×2 (02:00→07:54)
[2019-09-23 06:00] VITALS: BP 138/65
[2019-09-23] MEDS: SLF 3 ML SYR IV SCH (06:31)
[2019-09-23] MEDS: MEROPENEM INJ 1 GM in IV 1 EA IV SCH (06:32)
[2019-09-23 06:49] LABS: BASO # 0.1 10^3/uL (0.0-0.2); BASO % 0.5 % (0.0-1.0); EOS # 0.3 10^3/uL (0.0-0.5); EOS % 2.6 % (0.0-3.0); HEMATOCRIT 34.9 % (36.0-47.0); HEMOGLOBIN 10.4 g/dl (12.0-15.5); LYMPH # 2.7 10^3/uL (1.5-5.0); LYMPH % 22.9 % (24.0-44.0); MEAN CORPUSCULAR HEMOGLOBIN 27.9 pg (27.0-33.0); MEAN CORPUSCULAR HGB CONC 29.8 g/dl (32.0-36.5); MEAN CORPUSCULAR VOLUME 93.6 fl (80.0-96.0); MONO # 0.7 10^3/uL (0.0-0.8); MONO % 5.8 % (0.0-5.0); NEUTROPHILS # 8.1 10^3/uL (1.5-8.5); NEUTROPHILS % 67.6 % (36.0-66.0); PLATELET COUNT, AUTOMATED 336 10^3/uL (150-450); RED BLOOD COUNT 3.73 10^6/uL (4.00-5.40); WHITE BLOOD COUNT 11.9 10^3/uL (4.0-10.0)
[2019-09-23 07:15] LABS: BLOOD UREA NITROGEN 11 MG/DL (7-18); CALCIUM LEVEL 9.3 MG/DL (8.8-10.2); CARBON DIOXIDE LEVEL 36 MEQ/L (21-32); CHLORIDE LEVEL 98 MEQ/L (98-107); CREATININE FOR GFR 0.78 MG/DL (0.55-1.30); GLOMERULAR FILTRATION RATE > 60.0 (>39); GLUCOSE, FASTING 136 MG/DL (70-100); POTASSIUM SERUM 3.9 MEQ/L (3.5-5.1); SODIUM LEVEL 138 MEQ/L (136-145)
[2019-09-23] MEDS: VITAMIN D 1,000 INTERNATIONAL UNITS TABLET PO SCH (08:30)
[2019-09-23] MEDS: RIVAROXABAN 15 MG TAB (XARELTO) PO SCH (08:30)
[2019-09-23] MEDS: NYSTATIN 100,000 UNITS/GM TOPICAL PWD 15 GM TOP SCH (08:31)
[2019-09-23] MEDS: LACTOBACILLUS ACIDOPHILUS CAP (BACID) PO SCH (08:31)
[2019-09-23] MEDS: POTASSIUM CHLORIDE 10 MEQ SR TABLET PO SCH (08:31)
[2019-09-23] MEDS: PANTOPRAZOLE 40MG TAB (PROTONIX) PO SCH (08:31)
[2019-09-23] MEDS ORDERED: LEVO500T3 PO (11:26)
--- NOTE | 2019-09-23 20:05 | DS.PDOC ---
Discharge Summary General Date of Admission Sep 18, 2019 at 15:05 Date of Discharge 09/23/19 Discharge Summary PROCEDURES PERFORMED DURING STAY: [None]. ADMITTING DIAGNOSES: Sepsis due to urinary source/pyelonephritis Right foot trauma Hypomagnesemia Acute PE on Xarelto H/o DVT in the remote past Hypokalemia. Nephrolithiasis Intertriginal candidiasis DISCHARGE DIAGNOSES: Sepsis due to urinary source/pyelonephritis Right foot trauma Hypomagnesemia Acute PE on Xarelto H/o DVT in the remote past Hypokalemia. Nephrolithiasis Intertriginal candidiasis Pyelonephritis/ UTI HISTORY OF PRESENT ILLNESS: This is a 74-year-old female with history of Morbid obesity, DVT on Xarelto, Recent PE after self stopping of xarelto due to hematuria at home , nephrolithiasis, GERD, morbid obesity (BMI 46), who presents from urology clinic for fever and lethargy. Ms. Zayas was admitted on 08/24/19 with a suprapubic cellulitis , perineal candidiasis, and started on IV antibiotics. She was found to have an acute pulmonary embolism and was restarted on her Xarelto which she had stopped previously due hematuria. The hematuria returned. A right kidney stone was identified on several imaging studies and so urology was consulted. Dr. Martinez saw the patient and performed a cystoscopy and right ureteroscopy with a lithotripsy and basket extraction of stones and right ureter stent placement. Her cellulitis slowly improved and she was transitioned over to oral linezolid for culture of E faecalis to complete a tot al of 14 days of therapy. Pt discharged home on 09/06/19 with follow up with urology and PCP. Patient says after leaving the hospital she took her antibiotics as prescribed. Patient states she wasn't feeling well when she left the hospital. Patient states she then noted new hot and cold spells, night sweats, which have been going on for a few days. Patient states she was unable take her temperature because she did not have a working thermometer. Patient went to urology clinic for scheduled stent removal and was found to have a fever and noted to be lethargic and so sent to the ER for further evaluation and treatment. Of note: While inpatient patient came in contact with a nurse who tested po sitive for COVID19. Her rsp panel is negative, her COVID -19 test is in progress. Patient found to have a dirty UA in the setting of recent ureteral stent placement, now presenting with fever and white count 14 consistent with sepsis due to urinary source. Patient also with exposure to Covid-19 positive nurse HOSPITAL COURSE: During hospital stay patient received treatment with meropenem for UTI/pyelonephritis,urine cultures Pseudomonas and Ecoli. Recommended to continue levofloxacin in the outpatient settings. Covid-19 was negative Also patient was found to have pulmonary emboli, oral targeted anticoagulation therapy started. Patient needs to follow DISCHARGE MEDICATIONS: Please see below. ALLERGIES: Please see below. PHYSICAL EXAMINATION ON DISCHARGE: VITAL SIGNS: See below Morbidly, obese female laying in bed in no acute distress, audible wheeze with abdominal breathing. PERRLA, EOMI, OP clear, dry mucous membrane No lymphadenopathy appreciated. RRR, normal S1/2, no murmur, no Rub or Gallop. Wheeze throughout, no rales or ronchi. Soft, obese, nontender, nondistended, bowel sounds normal lower extremity edema bilaterally, exquisite tenderness bilaterally, right dorsum swollen and bruised. No skin breakdown No focal deficits appreciated, normal speech. AAO 3, appropriate LABORATORY DATA: Please see below. IMAGING:Portable chest x-ray: Single view. History: Lethargy. Comparison chest x-ray: April 21, 2018. Findings: Monitoring electrodes are seen. The lungs are well inflated and clear. The pleural angles are sharp. Heart size is normal. Pulmonary vasculature is not increased. No significant bony abnormality. Impression: Negative portable chest x-ray. PROGNOSIS: Fair ACTIVITY: [As tolerated]. DIET: Cardiac DISCHARGE PLAN: Home DISPOSITION: 01 Home, Self-Care. ITEMS TO FOLLOWUP ON ON OUTPATIENT: Follow-up with urologist and PCP DISCHARGE CONDITION: [Stable]. TIME SPENT ON DISCHARGE: Greater [id number]. Vital Signs/I&Os Vital Signs Date Time Temp Pulse Resp B/P (MAP) Pulse Ox O2 Delivery O2 Flow Rate FiO2 09/23/19 06:00 98.6 82 17 138/65 (89) 92 Room Air 09/18/19 15:50 2.0 I&O- Last 24 Hours up to 6 AM 09/23/19 06:00 Intake Total 1020 ml Output Total 1700 ml Balance -680 ml Laboratory Data Labs 24H Laboratory Tests 2 09/23/19 06:29: Immature Granulocyte % (Auto) 0.6, Neutrophils (%) (Auto) 67.6H, Lymphocytes (%) (Auto) 22.9L, Monocytes (%) (Auto) 5.8H, Eosinophils (%) (Auto) 2.6, Basophils (%) (Auto) 0.5, Neutrophils # (Auto) 8.1, Lymphocytes # (Auto) 2.7, Monocytes # (Auto) 0.7, Eosinophils # (Auto) 0.3, Basophils # (Auto) 0.1, Nucleated Red Blood Cells % (auto) 0.0, Anion Gap 4L, Glomerular Filtration Rate > 60.0, Calcium Level 9.3 CBC/BMP Laboratory Tests 09/23/19 06:29 Microbiology Microbiology 09/18/19 Blood Culture - Final, Complete NO GROWTH AFTER 5 DAYS 09/18/19 Urine Culture - Final, Complete Escherichia Coli Pseudomonas Aeruginosa 09/18/19 Coronavirus COVID-19 PCR (ISMA) - Final, Complete 09/18/19 Respiratory Panel (PCR) - Final, Complete 09/18/19 Blood Culture - Final, Complete NO GROWTH AFTER 5 DAYS Discharge Medications Scheduled Ascorbic Acid (Ascorbic Acid) 500 Mg Tab, 1,000 MG PO QHS, (Reported) Cholecalciferol (Vitamin D3) (Vitamin D3) 1,000 Unit Tablet, 2,000 UNITS PO DAILY, (Reported) Cyanocobalamin (Vitamin B-12) (Vitamin B-12) 1,000 Mcg Tablet, 1,000 MCG PO DAILY, (Reported) Glucosamine/D3/Boswellia Liss (Osteo Bi-Flex Tablet) 1 Each Tablet, 1 EACH PO DAILY, (Reported) Levofloxacin (Levofloxacin) 500 Mg Tablet, 500 MG PO DAILY Nystatin (Nystatin Powder) 15 Gm Powder, 1 APLCT TOP QID, (Reported) applies to groin area Pantoprazole Sodium (Pantoprazole Sodium) 40 Mg Tab, 40 MG PO DAILY, (Reported) Rivaroxaban (Xarelto) 15 Mg Tablet, 15 MG PO BID, (Reported) Scheduled PRN Acetaminophen (Acetaminophen) 500 Mg Tablet, 1,000 MG PO BID PRN for PAIN, (Reported) Allergies Coded Allergies: Cephalosporins (Verified Allergy, Unknown, rash, 08/24/19) Penicillins (Verified Allergy, Unknown, makes me break out in convulsions, 08/24/19) aspirin (Verified Allergy, Unknown, my mother told me, I don't know, 08/24/19) atorvastatin (Verified Allergy, Unknown, myalgia, 08/24/19) ciprofloxacin (Verified Allergy, Unknown, rash, 08/24/19) pravastatin (Verified Allergy, Unknown, myalgia, 08/24/19) BORIS HAGAN DO Sep 23, 2019 20:04
== END 2019-09-23 13:03 | disposition home or self-care (01) | DRG 871 ==
LOC: M ED 11:34 → M ED INP 15:05 → ENRESERV 15:29 → M PCU 16:35 → M MSPAV 09-20 13:02
PROVIDERS: ADMIT Internal Medicine; ATTEND Internal Medicine Nephrology
DX: A41.9 Sepsis, unspecified organism (principal); I26.99 Other pulmonary embolism without acute cor pulmonale; Z68.42 Body mass index [BMI] 45.0-49.9, adult; N39.0 Urinary tract infection, site not specified; B96.20 Unspecified Escherichia coli [E. coli] as the cause of diseases classified elsewhere; B37.2 Candidiasis of skin and nail; Z79.01 Long term (current) use of anticoagulants; E87.6 Hypokalemia; E83.42 Hypomagnesemia; K21.9 Gastro-esophageal reflux disease without esophagitis; R19.7 Diarrhea, unspecified; E66.01 Morbid (severe) obesity due to excess calories; S90.31XA Contusion of right foot, initial encounter; W22.8XXA Striking against or struck by other objects, initial encounter; Y92.018 Other place in single-family (private) house as the place of occurrence of the external cause; N20.0 Calculus of kidney; Z96.0 Presence of urogenital implants; Z90.79 Acquired absence of other genital organ(s); Z90.49 Acquired absence of other specified parts of digestive tract; Z20.828 Contact with and (suspected) exposure to other viral communicable diseases; Z79.899 Other long term (current) drug therapy; Z88.0 Allergy status to penicillin; Z88.1 Allergy status to other antibiotic agents; Z88.6 Allergy status to analgesic agent; Z88.8 Allergy status to other drugs, medicaments and biological substances; Z11.59 Encounter for screening for other viral diseases

== ENCOUNTER → 2020-04-30 | Outpatient (REF) | payer MEDICARE, OTHER ==
[~2020-04-30] MED LIST changes: +D31000TA2 PO; +LEVO500T3 PO; +NYST1POW9 TOP; +PANT40TA29 PO; -PANT40TA3 PO; -VITAD1000T PO
[2020-04-30 13:26] LABS: HEMATOCRIT 40.2 % (36.0-47.0); MEAN CORPUSCULAR HEMOGLOBIN 28.4 pg (27.0-33.0); MEAN CORPUSCULAR HGB CONC 29.9 g/dl (32.0-36.5); PLATELET COUNT, AUTOMATED 292 10^3/uL (150-450); RED BLOOD COUNT 4.23 10^6/uL (4.00-5.40); WHITE BLOOD COUNT 8.9 10^3/uL (4.0-10.0)
[2020-04-30 14:00] LABS: ALBUMIN 3.6 GM/DL (3.2-5.2); ALT/SGPT 17 U/L (12-78); BILIRUBIN,TOTAL 0.4 MG/DL (0.2-1.0); BLOOD UREA NITROGEN 15 MG/DL (7-18); CALCIUM LEVEL 9.3 MG/DL (8.8-10.2); CARBON DIOXIDE LEVEL 32 MEQ/L (21-32); CHLORIDE LEVEL 101 MEQ/L (98-107); CHOLESTEROL LEVEL 231 MG/DL (<200); CHOLESTEROL RISK RATIO 4.714 (<5); CREATININE FOR GFR 0.94 MG/DL (0.55-1.30); FREE T4 1.11 NG/DL (0.76-1.46); GLOMERULAR FILTRATION RATE > 60.0 (>39); GLUCOSE, FASTING 197 MG/DL (70-100); HDL CHOLESTEROL 49 MG/DL (>40); NON-HDL-C 182 MG/DL; POTASSIUM SERUM 4.4 MEQ/L (3.5-5.1); SODIUM LEVEL 139 MEQ/L (136-145); TRIGLYCERIDES LEVEL 427 MG/DL (<150)
[2020-04-30 14:05] LABS: PTH INTACT 95.1 PG/ML (18.5-88.0)
[2020-04-30 14:34] LABS: HEMOGLOBIN A1c 7.3 %
== END ==
LOC: M SFHCADAM 10:23
PROVIDERS: ATTEND Family Medicine
DX: E78.2 Mixed hyperlipidemia (principal); E11.9 Type 2 diabetes mellitus without complications; K21.00 Gastro-esophageal reflux disease with esophagitis, without bleeding; R60.9 Edema, unspecified; E55.9 Vitamin D deficiency, unspecified; E21.0 Primary hyperparathyroidism; Z23 Encounter for immunization
CPT/HCPCS: 80053; 80061; 82306; 83036; 83970; 84439; 84443; 85027; 90682; G0008; G0463

== ENCOUNTER → 2020-10-23 | Outpatient (REF) | payer MEDICARE, OTHER ==
[2020-10-23 13:07] LABS: HEMATOCRIT 45.1 % (36.0-47.0); HEMOGLOBIN 13.3 g/dl (12.0-15.5); MEAN CORPUSCULAR HEMOGLOBIN 29.4 pg (27.0-33.0); MEAN CORPUSCULAR HGB CONC 29.5 g/dl (32.0-36.5); MEAN CORPUSCULAR VOLUME 99.6 fl (80.0-96.0); PLATELET COUNT, AUTOMATED 321 10^3/uL (150-450); RED BLOOD COUNT 4.53 10^6/uL (4.00-5.40); WHITE BLOOD COUNT 11.3 10^3/uL (4.0-10.0)
[2020-10-23 13:29] LABS: HEMOGLOBIN A1c 6.9 %
[2020-10-23 14:24] LABS: ALBUMIN 3.9 GM/DL (3.2-5.2); ALT/SGPT 19 U/L (12-78); BILIRUBIN,TOTAL 0.5 MG/DL (0.2-1.0); BLOOD UREA NITROGEN 17 MG/DL (7-18); CALCIUM LEVEL 9.7 MG/DL (8.8-10.2); CARBON DIOXIDE LEVEL 35 MEQ/L (21-32); CHLORIDE LEVEL 100 MEQ/L (98-107); CHOLESTEROL LEVEL 254 MG/DL (<200); CHOLESTEROL RISK RATIO 4.618 (<5); CREATININE FOR GFR 0.83 MG/DL (0.55-1.30); GLOMERULAR FILTRATION RATE > 60.0 (>39); GLUCOSE, FASTING 133 MG/DL (70-100); HDL CHOLESTEROL 55 MG/DL (>40); LDL CHOLESTEROL 124 MG/DL (<100); NON-HDL-C 199 MG/DL; POTASSIUM SERUM 4.5 MEQ/L (3.5-5.1); SODIUM LEVEL 140 MEQ/L (136-145); TOTAL PROTEIN 7.4 GM/DL (6.4-8.2); TRIGLYCERIDES LEVEL 373 MG/DL (<150); VITAMIN B12 LEVEL > 2000 PG/ML (247-911)
== END ==
LOC: M SFHCADAM 08:18
PROVIDERS: ATTEND Family Medicine
DX: I26.99 Other pulmonary embolism without acute cor pulmonale (principal); E53.8 Deficiency of other specified B group vitamins; E78.2 Mixed hyperlipidemia; E11.9 Type 2 diabetes mellitus without complications

== ENCOUNTER 2021-03-12 14:06 | Emergency (ER) | payer MEDICARE, BC, OTHER ==
[~2021-03-12] VITALS: Ht 160 cm; Wt 131.8 kg
--- NOTE | 2021-03-12 16:43 | REP ---
INDICATION: pain. COMPARISON: None. TECHNIQUE: Five views of the left knee. FINDINGS: Five views of the left knee demonstrate a moderate 3 compartment osteoarthritis. There is medial compartment joint space narrowing. There are fairly large medial and lateral tibiofemoral spurs. There is diffuse osteopenia. There is mild patellar articular spurring. There is also non articular spurring on the superior pole of patella at the quadriceps tendon insertion. There is fullness in the region of the suprapatellar bursa suggestive of a joint effusion. IMPRESSION: Moderate 3 compartment osteoarthritis. No fracture seen. Probable joint effusion. <Electronically signed by Celestino Mccoy > 03/12/21 [id number]
--- NOTE | 2021-03-12 19:12 | REP ---
INDICATION: left leg pain, swelling hx of DVT, PE's. COMPARISON: None. TECHNIQUE: Multiple ultrasonographic images of the deep venous structures of the left lower extremity were obtained from the inguinal ligament to the ankle. Venous compression techniques, color doppler imaging, and augmentation techniques were also obtained where appropriate. As per the ACR guidelines the anterior tibial vein can not be effectively evaluated. Only compression techniques in the calf on the peroneal and posterior tibial veins was attempted/performed. FINDINGS: There is no abnormal echogenic material seen within any of the visualized deep venous structures that would suggest acute thrombosis. Coaptation is unremarkable throughout. Doppler interrogation shows an expected response to respiratory variability and augmentation in the thigh. Compression techniques in the calf were unobtainable. The color flow images show what appears to be a normal vascular pattern throughout the thigh. IMPRESSION: There is no ultrasonographic evidence of deep venous thrombosis involving any of the visualized deep venous structures of the left lower extremity as described above. Due to technical parameters calf vein DVT can not be ruled out. <Electronically signed by Chetan Pineda > 03/12/21 [id number]
[2021-03-12 20:20] VITALS: BP 140/70
--- NOTE | 2021-03-14 14:26 | ED PDOC ---
Post-Departure Follow-Up Contacted patient to see if she was able to get a follow-up with orthopedics. Sh e states she does not have a ride so has not called.States swelling is going down and pain is slightly improved. No new or worsening symptoms. Recommended that patient f/u with PCP as they may be able to help with resources for transportation for patient to be seen. Pt will contact them and is in agreement. Kristen Petit PA-C Mar 14, 2021 14:26
== END 2021-03-12 20:46 | disposition home or self-care (01) ==
LOC: M ED 14:06
DX: R22.42 Localized swelling, mass and lump, left lower limb (principal); M25.562 Pain in left knee; K21.9 Gastro-esophageal reflux disease without esophagitis; Z79.899 Other long term (current) drug therapy; Z79.01 Long term (current) use of anticoagulants; Z88.0 Allergy status to penicillin; Z88.1 Allergy status to other antibiotic agents; Z88.8 Allergy status to other drugs, medicaments and biological substances

== ENCOUNTER → 2021-04-22 | Outpatient (REF) | payer MEDICARE, OTHER ==
[2021-04-22 14:49] LABS: BLOOD UREA NITROGEN 16 MG/DL (7-18); CALCIUM LEVEL 9.6 MG/DL (8.8-10.2); CARBON DIOXIDE LEVEL 34 MEQ/L (21-32); CHLORIDE LEVEL 99 MEQ/L (98-107); CREATININE FOR GFR 0.89 MG/DL (0.55-1.30); GLOMERULAR FILTRATION RATE > 60.0 (>39); GLUCOSE, FASTING 140 MG/DL (70-100); POTASSIUM SERUM 4.4 MEQ/L (3.5-5.1); SODIUM LEVEL 141 MEQ/L (136-145)
[2021-04-22 19:46] LABS: HEMOGLOBIN A1c 7.1 %
== END ==
LOC: M SFHCADAM 09:06
PROVIDERS: ATTEND Family Medicine
DX: E11.9 Type 2 diabetes mellitus without complications (principal)

== ENCOUNTER → 2021-09-23 | Outpatient (REF) | payer MEDICARE, OTHER ==
[~2021-09-23] MED LIST changes: -D31000TA2 PO; -LEVO500T3 PO; +LEVO500T4 PO; +VITA100093 PO
[2021-09-23 12:55] LABS: HEMATOCRIT 41.4 % (36.0-47.0); HEMOGLOBIN 12.6 g/dl (12.0-15.5); MEAN CORPUSCULAR HEMOGLOBIN 29.6 pg (27.0-33.0); MEAN CORPUSCULAR HGB CONC 30.4 g/dl (32.0-36.5); MEAN CORPUSCULAR VOLUME 97.4 fl (80.0-96.0); PLATELET COUNT, AUTOMATED 291 10^3/uL (150-450); RED BLOOD COUNT 4.25 10^6/uL (4.00-5.40); WHITE BLOOD COUNT 8.9 10^3/uL (4.0-10.0)
[2021-09-23 14:59] LABS: ALBUMIN 3.7 GM/DL (3.2-5.2); ALT/SGPT 23 U/L (12-78); BILIRUBIN,TOTAL 0.4 MG/DL (0.2-1.0); BLOOD UREA NITROGEN 15 MG/DL (7-18); CALCIUM LEVEL 9.2 MG/DL (8.8-10.2); CARBON DIOXIDE LEVEL 38 MEQ/L (21-32); CHLORIDE LEVEL 99 MEQ/L (98-107); CHOLESTEROL LEVEL 242 MG/DL (<200); CREATININE FOR GFR 0.77 MG/DL (0.55-1.30); GLOMERULAR FILTRATION RATE > 60.0 (>39); GLUCOSE, FASTING 131 MG/DL (70-100); HDL CHOLESTEROL 50 MG/DL (>40); NON-HDL-C 192 MG/DL; POTASSIUM SERUM 4.2 MEQ/L (3.5-5.1); SODIUM LEVEL 141 MEQ/L (136-145); TOTAL PROTEIN 7.1 GM/DL (6.4-8.2); TRIGLYCERIDES LEVEL 444 MG/DL (<150)
[2021-09-23 15:06] LABS: TOTAL 25(OH) VITAMIN D 38.1 NG/ML (30.0-100.0)
[2021-09-23 17:58] LABS: HEMOGLOBIN A1c 7.4 %
== END ==
LOC: M SFHCADAM 09:43
PROVIDERS: ATTEND Family Medicine
DX: E78.2 Mixed hyperlipidemia (principal); Z79.01 Long term (current) use of anticoagulants; Z86.718 Personal history of other venous thrombosis and embolism; E11.9 Type 2 diabetes mellitus without complications; E21.0 Primary hyperparathyroidism; E55.9 Vitamin D deficiency, unspecified

== ENCOUNTER → 2022-02-26 | Outpatient (REF) | payer MEDICARE, OTHER ==
[~2022-02-26] MED LIST changes: -GLUCTAB6 PO; +GLUCTAB7 PO; +LEVO1TAB39 PO; -LEVO500T4 PO
[2022-02-26 14:40] LABS: HEMOGLOBIN A1c 7.1 %
[2022-02-26 14:41] LABS: BLOOD UREA NITROGEN 12 MG/DL (7-18); CALCIUM LEVEL 10.1 MG/DL (8.8-10.2); CARBON DIOXIDE LEVEL 35 MEQ/L (21-32); CHLORIDE LEVEL 100 MEQ/L (98-107); CREATININE FOR GFR 0.81 MG/DL (0.55-1.30); GLOMERULAR FILTRATION RATE > 60.0 (>39); GLUCOSE, FASTING 144 MG/DL (70-100); SODIUM LEVEL 139 MEQ/L (136-145)
== END ==
LOC: M SFHCADAM 09:16
PROVIDERS: ATTEND Family Medicine
DX: E11.9 Type 2 diabetes mellitus without complications (principal)

== ENCOUNTER → 2022-03-05 | Outpatient (CLI) | payer MEDICARE, BC, OTHER | LOC: M WHC 13:50 | PROVIDERS: ATTEND Family Medicine | DX: Z12.31 Encounter for screening mammogram for malignant neoplasm of breast (principal); E21.0 Primary hyperparathyroidism; M85.852 Other specified disorders of bone density and structure, left thigh ==

== ENCOUNTER → 2022-04-30 | Outpatient (REF) | payer MEDICARE, OTHER ==
[2022-04-30 13:41] LABS: HEMATOCRIT 43.1 % (36.0-47.0); HEMOGLOBIN 12.8 g/dl (12.0-15.5); MEAN CORPUSCULAR HEMOGLOBIN 29.2 pg (27.0-33.0); MEAN CORPUSCULAR HGB CONC 29.7 g/dl (32.0-36.5); MEAN CORPUSCULAR VOLUME 98.4 fl (80.0-96.0); PLATELET COUNT, AUTOMATED 328 10^3/uL (150-450); RED BLOOD COUNT 4.38 10^6/uL (4.00-5.40); WHITE BLOOD COUNT 9.8 10^3/uL (4.0-10.0)
[2022-04-30 14:24] LABS: ALT/SGPT 15 U/L (7.0-40); BILIRUBIN,TOTAL 0.5 MG/DL (0.3-1.2); BLOOD UREA NITROGEN 16 MG/DL (9-23); CALCIUM LEVEL 9.8 MG/DL (8.3-10.6); CARBON DIOXIDE LEVEL 36 MMOL/L (20-31); CHLORIDE LEVEL 97 MMOL/L (98-107); CHOLESTEROL LEVEL 229 MG/DL (<200); CHOLESTEROL RISK RATIO 4.55 (<5); CREATININE FOR GFR 0.78 MG/DL (0.55-1.30); FREE T4 1.09 NG/DL (0.89-1.76); GLOMERULAR FILTRATION RATE > 60.0 (>39); GLUCOSE, FASTING 147 MG/DL (74-106); HDL CHOLESTEROL 50.3 MG/DL (>40); LDL CHOLESTEROL 121.9 MG/DL (<100); NON-HDL-C 179 MG/DL; POTASSIUM SERUM 4.6 MMOL/L (3.5-5.1); SODIUM LEVEL 141 MMOL/L (136-145); THYROID STIMULATING HORMONE 2.068 uIU/ML (0.55-4.78); TOTAL 25(OH) VITAMIN D 67.3 NG/ML (20.0-100.0); TOTAL PROTEIN 7.2 G/DL (5.7-8.2); TRIGLYCERIDES LEVEL 284 MG/DL (<150)
== END ==
LOC: M SFHCADAM 09:54
PROVIDERS: ATTEND Family Medicine
DX: E11.9 Type 2 diabetes mellitus without complications (principal); E78.2 Mixed hyperlipidemia; Z79.01 Long term (current) use of anticoagulants; E21.0 Primary hyperparathyroidism; E55.9 Vitamin D deficiency, unspecified

== ENCOUNTER 2022-05-26 15:37 | Inpatient (IN) | payer OTHER, MEDICARE ==
[~2022-05-26] VITALS: Ht 157.5 cm; Wt 140.0 kg
[2022-05-26] MEDS ORDERED: ISOVUE-370 76% 100ML VIAL As Ordered ONE (18:52)
[2022-05-26 19:11] LABS: BASO # 0.1 10^3/uL (0.0-0.2); BASO % 0.4 % (0.0-1.0); EOS # 0.2 10^3/uL (0.0-0.5); EOS % 1.7 % (0.0-3.0); HEMATOCRIT 41.1 % (36.0-47.0); HEMOGLOBIN 12.2 g/dl (12.0-15.5); LYMPH # 2.1 10^3/uL (1.5-5.0); LYMPH % 18.9 % (24.0-44.0); MEAN CORPUSCULAR HGB CONC 29.7 g/dl (32.0-36.5); MEAN CORPUSCULAR VOLUME 97.9 fl (80.0-96.0); MONO # 0.8 10^3/uL (0.0-0.8); MONO % 7.2 % (2.0-8.0); NEUTROPHILS % 71.4 % (36.0-66.0); PLATELET COUNT, AUTOMATED 283 10^3/uL (150-450); WHITE BLOOD COUNT 11.2 10^3/uL (4.0-10.0)
[2022-05-26 19:19] LABS: APPEARANCE, URINE MANUAL HAZY (CLEAR); COLOR, URINE MANUAL LT YELLOW (YELLOW)
[2022-05-26 19:20] LABS: BILIRUBIN, URINE MANUAL NEGATIVE (NEGATIVE); BLOOD URINE MANUAL NEGATIVE (NEGATIVE); GLUCOSE, URINE (UA) MANUAL NEGATIVE (NEGATIVE); KETONE, URINE MANUAL NEGATIVE (NEGATIVE); LEUKOCYTE ESTERASE, URINE MAN POSITIVE (NEGATIVE); NITRITE, URINE MANUAL NEGATIVE (NEGATIVE); PH,URINE MAN 5.5 UNITS (5.0 - 7.0); PROTEIN, URINE MANUAL NEGATIVE (NEGATIVE); SPECIFIC GRAVITY,URINE MANUAL 1.015 (1.002-1.035); UROBILINOGEN, URINE MANUAL NORMAL (NORMAL)
[2022-05-26 19:24] LABS: INR 1.47; PROTHROMBIN TIME 18.1 SECONDS (12.5-14.5)
[2022-05-26 19:25] LABS: PARTIAL THROMBOPLASTIN TIME 36.9 SECONDS (24.8-34.2)
[2022-05-26 19:34] LABS: ALBUMIN 3.3 G/DL (3.2-5.2); ALKALINE PHOSPHATASE 74 U/L (46-116); ALT/SGPT 9 U/L (7.0-40); AST/SGOT 17 U/L (<34); BILIRUBIN,DIRECT 0.2 MG/DL (<0.4); BILIRUBIN,TOTAL 0.6 MG/DL (0.3-1.2)
[2022-05-26 19:39] LABS: BACTERIA, URINE LARGE AMOUNT; MUCUS, URINE SMALL AMOUNT (NEGATIVE); SQUAMOUS EPITHELIAL CELL URINE LARGE AMOUNT /hpf (SMALL AMT); WBC, URINE 30-40 /hpf (0-3)
[2022-05-26 19:40] LABS: HYALINE CAST, URINE NONE SEEN /lpf (0-1)
[2022-05-26 19:57] LABS: AMPHETAMINES LEVEL URINE NEGATIVE (NEGATIVE); BARBITURATES URINE NEGATIVE (NEGATIVE); BENZODIAZEPINES URINE NEGATIVE (NEGATIVE); CANNABINOIDS URINE NEGATIVE (NEGATIVE); COCAINE METABOLITE URINE NEGATIVE (NEGATIVE); METHADONE URINE NEGATIVE (NEGATIVE); OPIATES URINE NEGATIVE (NEGATIVE); PHENCYCLIDINE URINE NEGATIVE (NEGATIVE)
[2022-05-26 20:00] LABS: CK-MB VALUE MASS < 1.0 NG/ML (<3.6); ETHYL ALCOHOL (ETHANOL) 0.003 % (0.000-0.010); RSV AMPLIFICATION NEGATIVE (NEGATIVE)
[2022-05-26 20:02] LABS: ACETAMINOPHEN LEVEL < 2.0 UG/ML (10.0-20.0); CPK CREATINE PHOSPHOKINASE 84 U/L (34-145); MB/CK RELATIVE INDEX 1.19 (< OR =4); SALICYLATE LEVEL < 3.0 MG/DL (<30)
[2022-05-26] MEDS: LATANOPROST 0.005% OPHTH SOLN 2.5 ML OU SCH (21:00)
[2022-05-26] MEDS ORDERED: COLL1TAB PO (21:23)
[2022-05-26] MEDS ORDERED: SIME125C4 PO (21:23)
[2022-05-26] MEDS ORDERED: GAS-CAP4 PO (21:23)
[2022-05-26] MEDS ORDERED: POLYOPD OS (21:25)
[2022-05-26] MEDS ORDERED: PREDOPD OD (21:25)
[2022-05-26] MEDS ORDERED: TRAV04OPD OU (21:25)
[2022-05-26] MEDS ORDERED: HOME MED LIST COMPLETE! XX SCH (21:30)
[2022-05-26] MEDS ORDERED: ACETAMINOPHEN TAB 650MG DOSE (2X325MG) PO PRN (21:50)
[2022-05-26] MEDS ORDERED: POLYVINYL ALCOHOL OPHTH SOLN 15ML (LIQUITEARS) OS PRN (22:30)
[2022-05-26] MEDS: RIVAROXABAN 15MG TAB (XARELTO) PO SCH (23:33)
[2022-05-27] MEDS: ACETAMINOPHEN 500 MG TAB PO PRN ×2 (01:55→17:15)
[2022-05-27] MEDS ORDERED: GLUCOSE 4GM CHEW TABLET PO PRN (02:45)
[2022-05-27] MEDS ORDERED: DEXTROSE 50% 50ML SYRINGE IV PRN (02:45)
[2022-05-27] MEDS ORDERED: GLUCAGON INJ 1MG VIAL SC PRN (02:45)
[2022-05-27 06:05] LABS: BASO # 0.1 10^3/uL (0.0-0.2); BASO % 0.4 % (0.0-1.0); EOS # 0.2 10^3/uL (0.0-0.5); EOS % 1.6 % (0.0-3.0); HEMATOCRIT 36.8 % (36.0-47.0); HEMOGLOBIN 11.2 g/dl (12.0-15.5); LYMPH # 1.8 10^3/uL (1.5-5.0); LYMPH % 14.5 % (24.0-44.0); MEAN CORPUSCULAR HEMOGLOBIN 29.7 pg (27.0-33.0); MEAN CORPUSCULAR HGB CONC 30.4 g/dl (32.0-36.5); MEAN CORPUSCULAR VOLUME 97.6 fl (80.0-96.0); MONO % 7.8 % (2.0-8.0); NEUTROPHILS # 9.4 10^3/uL (1.5-8.5); NEUTROPHILS % 75.1 % (36.0-66.0); PLATELET COUNT, AUTOMATED 274 10^3/uL (150-450); RED BLOOD COUNT 3.77 10^6/uL (4.00-5.40); WHITE BLOOD COUNT 12.5 10^3/uL (4.0-10.0)
[2022-05-27 06:31] LABS: BILIRUBIN,DIRECT 0.2 MG/DL (<0.4)
[2022-05-27 06:34] LABS: INR 1.69; PROTHROMBIN TIME 20.2 SECONDS (12.5-14.5)
[2022-05-27 06:35] LABS: PARTIAL THROMBOPLASTIN TIME 38.3 SECONDS (24.8-34.2)
[2022-05-27 06:37] LABS: ALBUMIN 2.9 G/DL (3.2-5.2); ALKALINE PHOSPHATASE 67 U/L (46-116); ALT/SGPT < 9 U/L (7.0-40); AST/SGOT 15 U/L (<34); BILIRUBIN,TOTAL 0.6 MG/DL (0.3-1.2); BLOOD UREA NITROGEN 12 MG/DL (9-23); CALCIUM LEVEL 8.5 MG/DL (8.3-10.6); CARBON DIOXIDE LEVEL 36 MMOL/L (20-31); CHLORIDE LEVEL 101 MMOL/L (98-107); CREATININE FOR GFR 0.69 MG/DL (0.55-1.30); GLOMERULAR FILTRATION RATE > 60.0 (>39); GLUCOSE, FASTING 134 MG/DL (74-106); POTASSIUM SERUM 4.3 MMOL/L (3.5-5.1); SODIUM LEVEL 143 MMOL/L (136-145); TOTAL PROTEIN 6.2 G/DL (5.7-8.2)
[2022-05-27 06:46] LABS: HEMOGLOBIN A1c 6.8 % (4.0-6.0)
[2022-05-27] MEDS: INSULIN LISPRO (NovoLOG) PER UNIT SC SCH ×4 (07:30→21:00)
[2022-05-27] MEDS: VITAMIN D 1,000 INTERNATIONAL UNITS TABLET PO SCH (08:54)
[2022-05-27] MEDS: RIVAROXABAN 15MG TAB (XARELTO) PO SCH ×2 (08:54→21:24)
[2022-05-27] MEDS: PANTOPRAZOLE 40MG TAB (PROTONIX) PO SCH ×2 (08:54→13:25)
[2022-05-27] MEDS: ASCORBIC ACID 500 MG TAB PO SCH ×2 (08:54→21:24)
[2022-05-27] MEDS: CYANOCOBALAMIN 500 MCG TAB PO SCH (08:54)
[2022-05-27] MEDS: prednisoLONE ACET 1% OPHTH SUSP 5ML OD SCH ×4 (09:00→21:38)
[2022-05-27] MEDS ORDERED: IPRATROPIUM 0.5MG/ALBUTEROL 2.5MG INH SOL UD 3ML (DUONEB) NEB PRN (11:20)
[2022-05-27] MEDS: guaiFENesin ER 600 MG TAB PO SCH ×2 (13:25→21:25)
[2022-05-27] MEDS: IPRATROPIUM 0.5MG/ALBUTEROL 2.5MG INH SOL UD 3ML (DUONEB) NEB SCH ×2 (14:23→20:36)
[2022-05-27 14:42] LABS: ABG BASE EXCESS 4.9 (-2.0-2.0); ABG HCO3 31.3 MEQ/L (22.0-26.0); ABG O2 SATURATION 99.4 % (95.0-99.0); ABG PARTIAL PRESSURE O2 201.5 mmHg (75.0-100.0); ABG STANDARD HCO3 28.9 MEQ/L (22.0-26.0); ABG pH (ARTERIAL) 7.381 UNITS (7.350-7.450)
[2022-05-27 16:50] VITALS: BP 131/57
[2022-05-27 17:00] VITALS: O2SAT 91
[2022-05-27 18:00] VITALS: O2SAT 94
[2022-05-27] MEDS ORDERED: ISOVUE-370 76% 100ML VIAL As Ordered ONE (18:26)
[2022-05-27 20:00] VITALS: BP 138/63
[2022-05-27] MEDS: LATANOPROST 0.005% OPHTH SOLN 2.5 ML OU SCH (21:38)
[2022-05-28] VITALS (17 sets, daily range): BP systolic 111–164; BP diastolic 61–85; O2SAT 83–96
[2022-05-28] MEDS: IPRATROPIUM 0.5MG/ALBUTEROL 2.5MG INH SOL UD 3ML (DUONEB) NEB SCH ×4 (01:00→20:58)
[2022-05-28] MEDS: INSULIN LISPRO (NovoLOG) PER UNIT SC SCH ×4 (07:30→21:00)
[2022-05-28] MEDS: ACETAMINOPHEN 500 MG TAB PO PRN ×3 (07:43→22:09)
[2022-05-28] MEDS: RIVAROXABAN 15MG TAB (XARELTO) PO SCH ×2 (08:46→21:00)
[2022-05-28] MEDS: PANTOPRAZOLE 40MG TAB (PROTONIX) PO SCH (08:46)
[2022-05-28] MEDS: guaiFENesin ER 600 MG TAB PO SCH ×2 (08:46→21:00)
[2022-05-28] MEDS: ASCORBIC ACID 500 MG TAB PO SCH ×2 (08:46→21:00)
[2022-05-28] MEDS: CYANOCOBALAMIN 500 MCG TAB PO SCH (08:46)
[2022-05-28] MEDS: VITAMIN D 1,000 INTERNATIONAL UNITS TABLET PO SCH (08:46)
[2022-05-28] MEDS: prednisoLONE ACET 1% OPHTH SUSP 5ML OD SCH ×4 (08:47→21:00)
[2022-05-28 08:57] LABS: BASO # 0.1 10^3/uL (0.0-0.2); BASO % 0.5 % (0.0-1.0); EOS # 0.2 10^3/uL (0.0-0.5); EOS % 1.6 % (0.0-3.0); LYMPH # 1.5 10^3/uL (1.5-5.0); LYMPH % 11.9 % (24.0-44.0); MEAN CORPUSCULAR HEMOGLOBIN 29.4 pg (27.0-33.0); MEAN CORPUSCULAR HGB CONC 29.7 g/dl (32.0-36.5); MEAN CORPUSCULAR VOLUME 98.9 fl (80.0-96.0); MONO # 0.9 10^3/uL (0.0-0.8); MONO % 7.4 % (2.0-8.0); NEUTROPHILS # 9.5 10^3/uL (1.5-8.5); NEUTROPHILS % 78.1 % (36.0-66.0); PLATELET COUNT, AUTOMATED 290 10^3/uL (150-450); RED BLOOD COUNT 3.74 10^6/uL (4.00-5.40); WHITE BLOOD COUNT 12.2 10^3/uL (4.0-10.0)
[2022-05-28 09:03] LABS: MAGNESIUM LEVEL 1.7 MG/DL (1.8-2.4)
[2022-05-28 09:04] LABS: BLOOD UREA NITROGEN 10 MG/DL (9-23); CALCIUM LEVEL 8.7 MG/DL (8.3-10.6); CARBON DIOXIDE LEVEL 36 MMOL/L (20-31); CHLORIDE LEVEL 100 MMOL/L (98-107); CREATININE FOR GFR 0.66 MG/DL (0.55-1.30); GLOMERULAR FILTRATION RATE > 60.0 (>39); GLUCOSE, FASTING 147 MG/DL (74-106); POTASSIUM SERUM 4.2 MMOL/L (3.5-5.1); SODIUM LEVEL 142 MMOL/L (136-145)
[2022-05-28] MEDS ORDERED: DOXYCYCLINE HYCLATE 100 MG in D5W MINI-BAG PLUS 100 ML IV SCH (09:30)
[2022-05-28] MEDS ORDERED: MAG SULF 1GM/100ML (MAG RUN) 1 GM in IV 1 EA IV ONE (10:00)
[2022-05-28] MEDS: predniSONE 20 MG TAB PO SCH (10:06)
[2022-05-28] MEDS: DOXYCYCLINE HYCLATE 100MG TABLET PO SCH ×2 (10:06→21:00)
[2022-05-28] MEDS: LATANOPROST 0.005% OPHTH SOLN 2.5 ML OU SCH (21:00)
[2022-05-29] VITALS (15 sets, daily range): BP systolic 128–160; BP diastolic 56–72; O2SAT 87–96
[2022-05-29] MEDS: IPRATROPIUM 0.5MG/ALBUTEROL 2.5MG INH SOL UD 3ML (DUONEB) NEB SCH ×4 (01:55→20:13)
[2022-05-29 06:33] LABS: BASO # 0.1 10^3/uL (0.0-0.2); BASO % 0.5 % (0.0-1.0); EOS # 0.1 10^3/uL (0.0-0.5); EOS % 0.9 % (0.0-3.0); HEMATOCRIT 38.2 % (36.0-47.0); HEMOGLOBIN 11.4 g/dl (12.0-15.5); LYMPH # 2.1 10^3/uL (1.5-5.0); LYMPH % 17.4 % (24.0-44.0); MEAN CORPUSCULAR HEMOGLOBIN 29.2 pg (27.0-33.0); MEAN CORPUSCULAR HGB CONC 29.8 g/dl (32.0-36.5); MEAN CORPUSCULAR VOLUME 97.9 fl (80.0-96.0); MONO # 0.9 10^3/uL (0.0-0.8); MONO % 7.4 % (2.0-8.0); NEUTROPHILS # 8.8 10^3/uL (1.5-8.5); NEUTROPHILS % 72.9 % (36.0-66.0); PLATELET COUNT, AUTOMATED 312 10^3/uL (150-450)
[2022-05-29 06:42] LABS: MAGNESIUM LEVEL 1.8 MG/DL (1.8-2.4)
[2022-05-29 06:43] LABS: BLOOD UREA NITROGEN 11 MG/DL (9-23); CALCIUM LEVEL 8.9 MG/DL (8.3-10.6); CARBON DIOXIDE LEVEL 38 MMOL/L (20-31); CHLORIDE LEVEL 100 MMOL/L (98-107); CREATININE FOR GFR 0.65 MG/DL (0.55-1.30); GLOMERULAR FILTRATION RATE > 60.0 (>39); GLUCOSE, FASTING 116 MG/DL (74-106); POTASSIUM SERUM 4.4 MMOL/L (3.5-5.1); SODIUM LEVEL 142 MMOL/L (136-145)
[2022-05-29] MEDS: INSULIN LISPRO (NovoLOG) PER UNIT SC SCH ×4 (07:30→21:32)
[2022-05-29] MEDS: RIVAROXABAN 15MG TAB (XARELTO) PO SCH ×2 (08:55→21:33)
[2022-05-29] MEDS: CYANOCOBALAMIN 500 MCG TAB PO SCH (08:55)
[2022-05-29] MEDS: predniSONE 20 MG TAB PO SCH (08:55)
[2022-05-29] MEDS: ASCORBIC ACID 500 MG TAB PO SCH ×2 (08:55→21:33)
[2022-05-29] MEDS: DOXYCYCLINE HYCLATE 100MG TABLET PO SCH ×2 (08:55→21:33)
[2022-05-29] MEDS: guaiFENesin ER 600 MG TAB PO SCH ×2 (08:55→21:33)
[2022-05-29] MEDS: VITAMIN D 1,000 INTERNATIONAL UNITS TABLET PO SCH (08:55)
[2022-05-29] MEDS: ACETAMINOPHEN 500 MG TAB PO PRN ×2 (08:55→15:00)
[2022-05-29] MEDS: PANTOPRAZOLE 40MG TAB (PROTONIX) PO SCH (08:55)
[2022-05-29] MEDS: prednisoLONE ACET 1% OPHTH SUSP 5ML OD SCH ×4 (08:56→21:32)
[2022-05-29] MEDS: LATANOPROST 0.005% OPHTH SOLN 2.5 ML OU SCH (21:32)
[2022-05-30] VITALS: BP 126/59
[2022-05-30] MEDS: IPRATROPIUM 0.5MG/ALBUTEROL 2.5MG INH SOL UD 3ML (DUONEB) NEB SCH ×4 (02:00→19:31)
[2022-05-30 04:00] VITALS: BP 150/67
[2022-05-30 05:35] LABS: BASO # 0.1 10^3/uL (0.0-0.2); BASO % 0.6 % (0.0-1.0); EOS # 0.1 10^3/uL (0.0-0.5); EOS % 1.1 % (0.0-3.0); HEMATOCRIT 35.9 % (36.0-47.0); HEMOGLOBIN 10.8 g/dl (12.0-15.5); LYMPH # 2.6 10^3/uL (1.5-5.0); LYMPH % 20.6 % (24.0-44.0); MEAN CORPUSCULAR HEMOGLOBIN 29.3 pg (27.0-33.0); MEAN CORPUSCULAR HGB CONC 30.1 g/dl (32.0-36.5); MEAN CORPUSCULAR VOLUME 97.3 fl (80.0-96.0); MONO % 8.1 % (2.0-8.0); NEUTROPHILS # 8.5 10^3/uL (1.5-8.5); NEUTROPHILS % 68.5 % (36.0-66.0); PLATELET COUNT, AUTOMATED 315 10^3/uL (150-450); RED BLOOD COUNT 3.69 10^6/uL (4.00-5.40); WHITE BLOOD COUNT 12.4 10^3/uL (4.0-10.0)
[2022-05-30 06:00] LABS: MAGNESIUM LEVEL 1.7 MG/DL (1.8-2.4)
[2022-05-30 06:02] LABS: BLOOD UREA NITROGEN 16 MG/DL (9-23); CALCIUM LEVEL 8.9 MG/DL (8.3-10.6); CARBON DIOXIDE LEVEL 32 MMOL/L (20-31); CHLORIDE LEVEL 101 MMOL/L (98-107); GLOMERULAR FILTRATION RATE > 60.0 (>39); GLUCOSE, FASTING 117 MG/DL (74-106); POTASSIUM SERUM 4.3 MMOL/L (3.5-5.1); SODIUM LEVEL 142 MMOL/L (136-145)
[2022-05-30] MEDS: INSULIN LISPRO (NovoLOG) PER UNIT SC SCH ×4 (07:30→20:14)
[2022-05-30 08:00] VITALS: BP 137/65
[2022-05-30] MEDS ORDERED: MAG SULF 1GM/100ML (MAG RUN) 1 GM in IV 1 EA IV ONE (08:00)
[2022-05-30] MEDS: PANTOPRAZOLE 40MG TAB (PROTONIX) PO SCH (08:33)
[2022-05-30] MEDS: predniSONE 20 MG TAB PO SCH (08:33)
[2022-05-30] MEDS: ASCORBIC ACID 500 MG TAB PO SCH ×2 (08:34→20:13)
[2022-05-30] MEDS: RIVAROXABAN 15MG TAB (XARELTO) PO SCH ×2 (08:34→20:13)
[2022-05-30] MEDS: CYANOCOBALAMIN 500 MCG TAB PO SCH (08:34)
[2022-05-30] MEDS: guaiFENesin ER 600 MG TAB PO SCH ×2 (08:34→20:14)
[2022-05-30] MEDS: VITAMIN D 1,000 INTERNATIONAL UNITS TABLET PO SCH (08:34)
[2022-05-30] MEDS: prednisoLONE ACET 1% OPHTH SUSP 5ML OD SCH ×4 (08:34→20:15)
[2022-05-30] MEDS: DOXYCYCLINE HYCLATE 100MG TABLET PO SCH ×2 (08:34→20:14)
[2022-05-30] MEDS: ACETAMINOPHEN 500 MG TAB PO PRN ×2 (11:16→20:19)
[2022-05-30 12:00] VITALS: BP 151/69
[2022-05-30 16:00] VITALS: BP 145/63
[2022-05-30 19:46] VITALS: BP 146/63
[2022-05-30] MEDS: LATANOPROST 0.005% OPHTH SOLN 2.5 ML OU SCH (20:15)
[2022-05-31] MEDS: IPRATROPIUM 0.5MG/ALBUTEROL 2.5MG INH SOL UD 3ML (DUONEB) NEB SCH ×4 (02:05→20:39)
[2022-05-31 04:00] VITALS: BP 122/56
[2022-05-31 06:36] LABS: BASO # 0.1 10^3/uL (0.0-0.2); BASO % 0.6 % (0.0-1.0); EOS # 0.1 10^3/uL (0.0-0.5); EOS % 0.8 % (0.0-3.0); HEMOGLOBIN 10.7 g/dl (12.0-15.5); LYMPH # 2.9 10^3/uL (1.5-5.0); LYMPH % 25.5 % (24.0-44.0); MEAN CORPUSCULAR HGB CONC 29.7 g/dl (32.0-36.5); MEAN CORPUSCULAR VOLUME 97.6 fl (80.0-96.0); MONO # 1.1 10^3/uL (0.0-0.8); MONO % 9.4 % (2.0-8.0); NEUTROPHILS % 62.7 % (36.0-66.0); PLATELET COUNT, AUTOMATED 323 10^3/uL (150-450); RED BLOOD COUNT 3.69 10^6/uL (4.00-5.40); WHITE BLOOD COUNT 11.2 10^3/uL (4.0-10.0)
[2022-05-31 07:00] LABS: MAGNESIUM LEVEL 1.7 MG/DL (1.8-2.4)
[2022-05-31 07:01] LABS: BLOOD UREA NITROGEN 17 MG/DL (9-23); CALCIUM LEVEL 8.8 MG/DL (8.3-10.6); CARBON DIOXIDE LEVEL 32 MMOL/L (20-31); CHLORIDE LEVEL 101 MMOL/L (98-107); CREATININE FOR GFR 0.74 MG/DL (0.55-1.30); GLOMERULAR FILTRATION RATE > 60.0 (>39); GLUCOSE, FASTING 118 MG/DL (74-106); POTASSIUM SERUM 3.9 MMOL/L (3.5-5.1); SODIUM LEVEL 142 MMOL/L (136-145)
[2022-05-31] MEDS: INSULIN LISPRO (NovoLOG) PER UNIT SC SCH ×4 (07:30→20:10)
[2022-05-31 08:00] VITALS: BP 129/60
[2022-05-31] MEDS ORDERED: MAG SULF 1GM/100ML (MAG RUN) 1 GM in IV 1 EA IV ONE (08:00)
[2022-05-31] MEDS: ADVAIR HFA 115/21MCG INHALER INH SCH ×2 (08:00→20:40)
[2022-05-31] MEDS: prednisoLONE ACET 1% OPHTH SUSP 5ML OD SCH ×4 (08:26→20:22)
[2022-05-31] MEDS: guaiFENesin ER 600 MG TAB PO SCH ×2 (08:26→20:21)
[2022-05-31] MEDS: ASCORBIC ACID 500 MG TAB PO SCH ×2 (08:26→20:22)
[2022-05-31] MEDS: VITAMIN D 1,000 INTERNATIONAL UNITS TABLET PO SCH (08:26)
[2022-05-31] MEDS: RIVAROXABAN 15MG TAB (XARELTO) PO SCH ×2 (08:26→20:21)
[2022-05-31] MEDS: DOXYCYCLINE HYCLATE 100MG TABLET PO SCH ×2 (08:26→20:21)
[2022-05-31] MEDS: CYANOCOBALAMIN 500 MCG TAB PO SCH (08:26)
[2022-05-31] MEDS: predniSONE 20 MG TAB PO SCH (08:27)
[2022-05-31] MEDS: PANTOPRAZOLE 40MG TAB (PROTONIX) PO SCH (08:27)
[2022-05-31] MEDS ORDERED: guaiFENesin ER 600 MG TAB PO ONE (10:15)
[2022-05-31 16:00] VITALS: BP 145/63
[2022-05-31] MEDS: LATANOPROST 0.005% OPHTH SOLN 2.5 ML OU SCH (20:22)
[2022-05-31 20:26] VITALS: BP 139/63
[2022-06-01] VITALS (10 sets, daily range): BP systolic 134–136; BP diastolic 60–65; O2SAT 83–95
[2022-06-01] MEDS: IPRATROPIUM 0.5MG/ALBUTEROL 2.5MG INH SOL UD 3ML (DUONEB) NEB SCH ×2 (02:00→08:00)
[2022-06-01 06:00] LABS: BASO # 0.1 10^3/uL (0.0-0.2); BASO % 0.6 % (0.0-1.0); EOS # 0.2 10^3/uL (0.0-0.5); EOS % 1.1 % (0.0-3.0); HEMATOCRIT 36.4 % (36.0-47.0); LYMPH # 3.2 10^3/uL (1.5-5.0); MEAN CORPUSCULAR HEMOGLOBIN 29.7 pg (27.0-33.0); MEAN CORPUSCULAR HGB CONC 30.2 g/dl (32.0-36.5); MEAN CORPUSCULAR VOLUME 98.4 fl (80.0-96.0); MONO # 1.1 10^3/uL (0.0-0.8); MONO % 8.1 % (2.0-8.0); NEUTROPHILS # 8.6 10^3/uL (1.5-8.5); NEUTROPHILS % 64.7 % (36.0-66.0); PLATELET COUNT, AUTOMATED 327 10^3/uL (150-450); WHITE BLOOD COUNT 13.3 10^3/uL (4.0-10.0)
[2022-06-01 06:28] LABS: MAGNESIUM LEVEL 1.8 MG/DL (1.8-2.4)
[2022-06-01 06:29] LABS: BLOOD UREA NITROGEN 22 MG/DL (9-23); CALCIUM LEVEL 8.7 MG/DL (8.3-10.6); CARBON DIOXIDE LEVEL 37 MMOL/L (20-31); CHLORIDE LEVEL 100 MMOL/L (98-107); CREATININE FOR GFR 0.73 MG/DL (0.55-1.30); GLOMERULAR FILTRATION RATE > 60.0 (>39); GLUCOSE, FASTING 119 MG/DL (74-106); POTASSIUM SERUM 4.4 MMOL/L (3.5-5.1); SODIUM LEVEL 140 MMOL/L (136-145)
[2022-06-01] MEDS: ADVAIR HFA 115/21MCG INHALER INH SCH (08:00)
[2022-06-01] MEDS: INSULIN LISPRO (NovoLOG) PER UNIT SC SCH ×2 (09:26→12:35)
[2022-06-01] MEDS: DOXYCYCLINE HYCLATE 100MG TABLET PO SCH (09:29)
[2022-06-01] MEDS: RIVAROXABAN 15MG TAB (XARELTO) PO SCH (09:29)
[2022-06-01] MEDS: ASCORBIC ACID 500 MG TAB PO SCH (09:29)
[2022-06-01] MEDS: predniSONE 20 MG TAB PO SCH (09:30)
[2022-06-01] MEDS: PANTOPRAZOLE 40MG TAB (PROTONIX) PO SCH (09:30)
[2022-06-01] MEDS: prednisoLONE ACET 1% OPHTH SUSP 5ML OD SCH ×2 (09:30→12:35)
[2022-06-01] MEDS: VITAMIN D 1,000 INTERNATIONAL UNITS TABLET PO SCH (09:30)
[2022-06-01] MEDS: guaiFENesin ER 600 MG TAB PO SCH (09:30)
[2022-06-01] MEDS: CYANOCOBALAMIN 500 MCG TAB PO SCH (09:30)
[2022-06-01] MEDS ORDERED: PRED10TA2 PO (11:33)
[2022-06-01] MEDS ORDERED: ADVA115A INH (11:33)
[2022-06-01] MEDS ORDERED: DOXY100T PO (11:33)
[2022-06-01] MEDS ORDERED: MUCI600T31 PO (11:33)
[2022-06-02 15:07] LABS: BODY FLUID CULTURE Not indicated. (.); ORGANISM ID Not indicated. (.); SPECIMEN SOURCE Urine (.); URINE STREP PNEUMONIAE ANTIGEN Negative (Negative)
== END 2022-06-01 13:16 | disposition other institution (70) | DRG 140 ==
LOC: M ED 15:37 → M ED INP 21:13 → ENRESERV 05-27 15:15 → M PCU 05-27 16:34
PROVIDERS: ADMIT Family Medicine; ATTEND Family Medicine
PROC: B246ZZZ Ultrasonography of Right and Left Heart (ICD-10-PCS; principal; 2022-05-29)
DX: J44.1 Chronic obstructive pulmonary disease with (acute) exacerbation (principal); J40 Bronchitis, not specified as acute or chronic; E11.51 Type 2 diabetes mellitus with diabetic peripheral angiopathy without gangrene; E66.9 Obesity, unspecified; R09.02 Hypoxemia; I73.9 Peripheral vascular disease, unspecified; E55.9 Vitamin D deficiency, unspecified; E78.5 Hyperlipidemia, unspecified; E04.1 Nontoxic single thyroid nodule; E21.0 Primary hyperparathyroidism; D72.829 Elevated white blood cell count, unspecified; I87.2 Venous insufficiency (chronic) (peripheral); K21.9 Gastro-esophageal reflux disease without esophagitis; M51.37 Other intervertebral disc degeneration, lumbosacral region; G25.81 Restless legs syndrome; Z90.79 Acquired absence of other genital organ(s); Z90.49 Acquired absence of other specified parts of digestive tract; I77.1 Stricture of artery; Z20.822 Contact with and (suspected) exposure to COVID-19; Z79.52 Long term (current) use of systemic steroids; Z79.899 Other long term (current) drug therapy; Z88.0 Allergy status to penicillin; Z88.1 Allergy status to other antibiotic agents; Z88.6 Allergy status to analgesic agent; Z88.8 Allergy status to other drugs, medicaments and biological substances; Z79.01 Long term (current) use of anticoagulants; Z86.19 Personal history of other infectious and parasitic diseases; Z86.718 Personal history of other venous thrombosis and embolism; Z86.711 Personal history of pulmonary embolism; Z79.51 Long term (current) use of inhaled steroids; Z66 Do not resuscitate

== ENCOUNTER 2022-06-01 10:12 | Inpatient (IN) | payer MEDICARE, OTHER ==
[~2022-06-01] VITALS: Ht 160 cm; Wt 133.6 kg
[~2022-06-01 10:12] MED LIST changes: +COLL1TAB PO; +GAS-CAP4 PO; +POLYOPD OS; +PREDOPD OD; +SIME125C4 PO; +TRAV04OPD OU
[2022-06-01] MEDS ORDERED: MUCI600T31 PO (11:33)
[2022-06-01] MEDS ORDERED: PRED10TA2 PO (11:33)
[2022-06-01] MEDS ORDERED: ADVA115A INH (11:33)
[2022-06-01] MEDS ORDERED: DOXY100T PO (11:33)
[2022-06-01 13:20] VITALS: BP 169/76
[2022-06-01] MEDS ORDERED: ACETAMINOPHEN 500 MG TAB PO PRN (14:20)
[2022-06-01] MEDS ORDERED: DEXTROSE 50% 50ML SYRINGE IV PRN (14:20)
[2022-06-01] MEDS ORDERED: GLUCAGON INJ 1MG VIAL SC PRN (14:20)
[2022-06-01] MEDS ORDERED: BISACODYL 10MG SUPP PR PRN (14:20)
[2022-06-01] MEDS ORDERED: GLUCOSE 4GM CHEW TABLET PO PRN (14:20)
[2022-06-01] MEDS ORDERED: HOME MED LIST COMPLETE! XX SCH (15:20)
[2022-06-01] MEDS: POLYVINYL ALCOHOL OPHTH SOLN 15ML (LIQUITEARS) OU SCH ×2 (16:00→21:12)
[2022-06-01] MEDS: REMEDY PHYTOPLEX Z-GUARD PASTE 113GM TUBE (FROM STOREROOM PRODUCT) TOP SCH ×2 (16:00→21:00)
[2022-06-01] MEDS: RIVAROXABAN 15MG TAB (XARELTO) PO SCH (17:36)
[2022-06-01] MEDS: SUCRALFATE 1 GM TAB PO SCH ×2 (17:36→21:08)
[2022-06-01] MEDS: INSULIN LISPRO (NovoLOG) PER UNIT SC SCH ×2 (17:36→21:00)
[2022-06-01] MEDS: prednisoLONE ACET 1% OPHTH SUSP 5ML OD SCH ×2 (17:36→21:10)
[2022-06-01 20:00] VITALS: BP 156/70
[2022-06-01] MEDS: COMBIVENT RESPIMAT 100-20MCG INHALER 4GM INH SCH (20:00)
[2022-06-01] MEDS: ADVAIR HFA 115/21MCG INHALER INH SCH (20:02)
[2022-06-01] MEDS: SENNA 8.6 MG TAB (SENOKOT) PO SCH (21:00)
[2022-06-01] MEDS: DOCUSATE SODIUM 100MG CAPSULE PO SCH (21:00)
[2022-06-01] MEDS: guaiFENesin 200 MG TAB PO SCH (21:08)
[2022-06-01] MEDS: DOXYCYCLINE HYCLATE 100MG TABLET PO SCH (21:09)
[2022-06-01] MEDS: PANTOPRAZOLE 40MG TAB (PROTONIX) PO SCH (21:09)
[2022-06-01] MEDS: ASCORBIC ACID 500 MG TAB PO SCH (21:10)
[2022-06-01] MEDS: LATANOPROST 0.005% OPHTH SOLN 2.5 ML OU SCH (21:11)
[2022-06-02] MEDS: BENZONATATE 100MG CAPSULE PO PRN ×2 (01:59→21:06)
[2022-06-02 06:00] VITALS: BP 134/63
[2022-06-02 06:56] LABS: BASO # 0.1 10^3/uL (0.0-0.2); BASO % 0.5 % (0.0-1.0); EOS # 0.1 10^3/uL (0.0-0.5); EOS % 1.1 % (0.0-3.0); HEMATOCRIT 37.3 % (36.0-47.0); HEMOGLOBIN 11.1 g/dl (12.0-15.5); LYMPH # 2.9 10^3/uL (1.5-5.0); LYMPH % 22.5 % (24.0-44.0); MEAN CORPUSCULAR HEMOGLOBIN 29.1 pg (27.0-33.0); MEAN CORPUSCULAR HGB CONC 29.8 g/dl (32.0-36.5); MEAN CORPUSCULAR VOLUME 97.9 fl (80.0-96.0); MONO # 1.1 10^3/uL (0.0-0.8); MONO % 8.3 % (2.0-8.0); NEUTROPHILS # 8.6 10^3/uL (1.5-8.5); NEUTROPHILS % 66.2 % (36.0-66.0); PLATELET COUNT, AUTOMATED 340 10^3/uL (150-450); RED BLOOD COUNT 3.81 10^6/uL (4.00-5.40); WHITE BLOOD COUNT 12.9 10^3/uL (4.0-10.0)
[2022-06-02 07:23] LABS: ALBUMIN 2.8 G/DL (3.2-5.2); ALKALINE PHOSPHATASE 61 U/L (46-116); ALT/SGPT 14 U/L (7.0-40); AST/SGOT 17 U/L (<34); BILIRUBIN,TOTAL 0.3 MG/DL (0.3-1.2); BLOOD UREA NITROGEN 18 MG/DL (9-23); CALCIUM LEVEL 8.5 MG/DL (8.3-10.6); CARBON DIOXIDE LEVEL 36 MMOL/L (20-31); CHLORIDE LEVEL 98 MMOL/L (98-107); CREATININE FOR GFR 0.64 MG/DL (0.55-1.30); GLOMERULAR FILTRATION RATE > 60.0 (>39); GLUCOSE, FASTING 113 MG/DL (74-106); POTASSIUM SERUM 4.3 MMOL/L (3.5-5.1); SODIUM LEVEL 141 MMOL/L (136-145); TOTAL PROTEIN 5.9 G/DL (5.7-8.2)
[2022-06-02] MEDS: SUCRALFATE 1 GM TAB PO SCH ×4 (07:30→21:06)
[2022-06-02] MEDS: ADVAIR HFA 115/21MCG INHALER INH SCH ×2 (07:45→20:54)
[2022-06-02] MEDS: COMBIVENT RESPIMAT 100-20MCG INHALER 4GM INH SCH ×3 (07:45→20:00)
[2022-06-02] MEDS: REMEDY PHYTOPLEX Z-GUARD PASTE 113GM TUBE (FROM STOREROOM PRODUCT) TOP SCH ×3 (09:00→21:00)
[2022-06-02] MEDS: guaiFENesin 200 MG TAB PO SCH ×3 (09:40→21:06)
[2022-06-02] MEDS: INSULIN LISPRO (NovoLOG) PER UNIT SC SCH ×4 (09:40→21:00)
[2022-06-02] MEDS: predniSONE 10 MG TAB PO SCH (09:40)
[2022-06-02] MEDS: DOCUSATE SODIUM 100MG CAPSULE PO SCH ×2 (09:40→21:10)
[2022-06-02] MEDS: DOXYCYCLINE HYCLATE 100MG TABLET PO SCH ×2 (09:40→21:06)
[2022-06-02] MEDS: ASCORBIC ACID 500 MG TAB PO SCH ×2 (09:41→21:06)
[2022-06-02] MEDS: POLYVINYL ALCOHOL OPHTH SOLN 15ML (LIQUITEARS) OU SCH ×3 (09:41→21:07)
[2022-06-02] MEDS: CYANOCOBALAMIN 500 MCG TAB PO SCH (09:41)
[2022-06-02] MEDS: RIVAROXABAN 15MG TAB (XARELTO) PO SCH ×2 (09:41→17:30)
[2022-06-02] MEDS: PANTOPRAZOLE 40MG TAB (PROTONIX) PO SCH ×2 (09:41→21:06)
[2022-06-02] MEDS: prednisoLONE ACET 1% OPHTH SUSP 5ML OD SCH ×4 (09:42→21:04)
[2022-06-02 14:00] VITALS: BP 182/90
[2022-06-02] MEDS ORDERED: **hydrALAZINE HCL** 25 MG TAB PO ONE (15:00)
[2022-06-02] MEDS: SODIUM CHLORIDE NASAL 0.65% SPRAY BTL (OCEAN) SCH ×2 (15:30→21:05)
[2022-06-02 16:52] VITALS: BP 186/79
[2022-06-02 20:00] VITALS: BP 178/81
[2022-06-02 21:00] VITALS: BP_SYST 160; BP_SYST 180; BP_DIAS 68; BP_DIAS 80
[2022-06-02] MEDS: LATANOPROST 0.005% OPHTH SOLN 2.5 ML OU SCH (21:04)
[2022-06-02] MEDS: amLODIPine 5 MG TAB PO SCH (21:05)
[2022-06-02] MEDS: LORATADINE 10 MG TAB PO SCH (21:05)
[2022-06-02] MEDS: FLUTICASONE PROP 0.05% NASAL SPRAY 16 GM (FLONASE) NARES SCH (21:05)
[2022-06-02] MEDS: SENNA 8.6 MG TAB (SENOKOT) PO SCH (21:06)
[2022-06-02 22:28] VITALS: BP_SYST 150; BP_SYST 152; BP_DIAS 70
[2022-06-03 06:42] LABS: BASO # 0.1 10^3/uL (0.0-0.2); BASO % 0.6 % (0.0-1.0); EOS # 0.1 10^3/uL (0.0-0.5); EOS % 0.7 % (0.0-3.0); HEMATOCRIT 38.8 % (36.0-47.0); HEMOGLOBIN 11.9 g/dl (12.0-15.5); LYMPH # 3.4 10^3/uL (1.5-5.0); MEAN CORPUSCULAR HGB CONC 30.7 g/dl (32.0-36.5); MEAN CORPUSCULAR VOLUME 94.6 fl (80.0-96.0); MONO % 7.3 % (2.0-8.0); NEUTROPHILS # 9.2 10^3/uL (1.5-8.5); NEUTROPHILS % 65.1 % (36.0-66.0); PLATELET COUNT, AUTOMATED 393 10^3/uL (150-450); WHITE BLOOD COUNT 14.2 10^3/uL (4.0-10.0)
[2022-06-03 06:52] VITALS: BP 159/74
[2022-06-03 07:10] LABS: BLOOD UREA NITROGEN 20 MG/DL (9-23); CALCIUM LEVEL 9.2 MG/DL (8.3-10.6); CARBON DIOXIDE LEVEL 34 MMOL/L (20-31); CHLORIDE LEVEL 98 MMOL/L (98-107); CREATININE FOR GFR 0.71 MG/DL (0.55-1.30); GLOMERULAR FILTRATION RATE > 60.0 (>39); GLUCOSE, FASTING 120 MG/DL (74-106); POTASSIUM SERUM 4.3 MMOL/L (3.5-5.1); SODIUM LEVEL 139 MMOL/L (136-145)
[2022-06-03] MEDS: COMBIVENT RESPIMAT 100-20MCG INHALER 4GM INH SCH ×3 (07:29→20:00)
[2022-06-03] MEDS: ADVAIR HFA 115/21MCG INHALER INH SCH ×2 (07:29→20:05)
[2022-06-03] MEDS: PANTOPRAZOLE 40MG TAB (PROTONIX) PO SCH ×2 (08:15→21:32)
[2022-06-03] MEDS: SUCRALFATE 1 GM TAB PO SCH ×4 (08:15→21:32)
[2022-06-03] MEDS: predniSONE 10 MG TAB PO SCH (08:15)
[2022-06-03] MEDS: guaiFENesin 200 MG TAB PO SCH ×3 (08:15→21:32)
[2022-06-03] MEDS: ASCORBIC ACID 500 MG TAB PO SCH ×2 (08:15→21:32)
[2022-06-03] MEDS: DOXYCYCLINE HYCLATE 100MG TABLET PO SCH ×2 (08:15→21:32)
[2022-06-03] MEDS: INSULIN LISPRO (NovoLOG) PER UNIT SC SCH ×4 (08:15→21:00)
[2022-06-03] MEDS: amLODIPine 5 MG TAB PO SCH ×2 (08:16→21:31)
[2022-06-03] MEDS: SODIUM CHLORIDE NASAL 0.65% SPRAY BTL (OCEAN) SCH ×3 (08:16→21:00)
[2022-06-03] MEDS: RIVAROXABAN 15MG TAB (XARELTO) PO SCH ×2 (08:16→17:12)
[2022-06-03] MEDS: CYANOCOBALAMIN 500 MCG TAB PO SCH (08:16)
[2022-06-03] MEDS: DOCUSATE SODIUM 100MG CAPSULE PO SCH ×2 (08:16→21:32)
[2022-06-03] MEDS: FLUTICASONE PROP 0.05% NASAL SPRAY 16 GM (FLONASE) NARES SCH ×2 (08:16→21:00)
[2022-06-03] MEDS: prednisoLONE ACET 1% OPHTH SUSP 5ML OD SCH ×4 (08:17→21:38)
[2022-06-03] MEDS: POLYVINYL ALCOHOL OPHTH SOLN 15ML (LIQUITEARS) OU SCH ×3 (08:17→21:38)
[2022-06-03] MEDS: REMEDY PHYTOPLEX Z-GUARD PASTE 113GM TUBE (FROM STOREROOM PRODUCT) TOP SCH ×3 (08:18→21:00)
[2022-06-03] MEDS: FUROSEMIDE 20 MG TAB PO SCH (11:08)
[2022-06-03 14:00] VITALS: BP 152/67
[2022-06-03] MEDS: BENZONATATE 100MG CAPSULE PO PRN (17:12)
[2022-06-03 20:00] VITALS: BP 162/76
[2022-06-03] MEDS: RAMELTEON 8 MG TAB (ROZEREM) PO PRN (21:32)
[2022-06-03] MEDS: LORATADINE 10 MG TAB PO SCH (21:32)
[2022-06-03] MEDS: SENNA 8.6 MG TAB (SENOKOT) PO SCH (21:32)
[2022-06-03] MEDS: LATANOPROST 0.005% OPHTH SOLN 2.5 ML OU SCH (21:38)
[2022-06-04] MEDS: BENZONATATE 100MG CAPSULE PO PRN (04:52)
[2022-06-04 05:11] VITALS: BP 168/74
[2022-06-04] MEDS: SODIUM CHLORIDE HYPERTONIC 3% 15ML NEB SOL INH SCH ×2 (08:00→14:20)
[2022-06-04] MEDS: guaiFENesin 200 MG TAB PO SCH ×3 (08:26→21:54)
[2022-06-04] MEDS: ASCORBIC ACID 500 MG TAB PO SCH ×2 (08:26→21:54)
[2022-06-04] MEDS: PANTOPRAZOLE 40MG TAB (PROTONIX) PO SCH ×2 (08:26→21:55)
[2022-06-04] MEDS: predniSONE 10 MG TAB PO SCH (08:26)
[2022-06-04] MEDS: INSULIN LISPRO (NovoLOG) PER UNIT SC SCH ×4 (08:26→21:55)
[2022-06-04] MEDS: CYANOCOBALAMIN 500 MCG TAB PO SCH (08:26)
[2022-06-04] MEDS: DOXYCYCLINE HYCLATE 100MG TABLET PO SCH ×2 (08:26→21:54)
[2022-06-04] MEDS: DOCUSATE SODIUM 100MG CAPSULE PO SCH ×2 (08:27→21:55)
[2022-06-04] MEDS: FUROSEMIDE 20 MG TAB PO SCH (08:27)
[2022-06-04] MEDS: amLODIPine 5 MG TAB PO SCH ×2 (08:27→21:55)
[2022-06-04] MEDS: SUCRALFATE 1 GM TAB PO SCH ×4 (08:27→21:55)
[2022-06-04] MEDS: RIVAROXABAN 15MG TAB (XARELTO) PO SCH ×2 (08:27→17:44)
[2022-06-04] MEDS: FLUTICASONE PROP 0.05% NASAL SPRAY 16 GM (FLONASE) NARES SCH ×2 (08:28→21:52)
[2022-06-04] MEDS: prednisoLONE ACET 1% OPHTH SUSP 5ML OD SCH ×4 (08:28→21:51)
[2022-06-04] MEDS: REMEDY PHYTOPLEX Z-GUARD PASTE 113GM TUBE (FROM STOREROOM PRODUCT) TOP SCH ×3 (08:29→21:00)
[2022-06-04] MEDS: POLYVINYL ALCOHOL OPHTH SOLN 15ML (LIQUITEARS) OU SCH ×3 (08:29→21:52)
[2022-06-04] MEDS: SODIUM CHLORIDE NASAL 0.65% SPRAY BTL (OCEAN) SCH ×3 (08:30→21:52)
[2022-06-04] MEDS: COMBIVENT RESPIMAT 100-20MCG INHALER 4GM INH SCH ×3 (08:31→18:18)
[2022-06-04] MEDS: ADVAIR HFA 115/21MCG INHALER INH SCH ×2 (08:31→18:18)
[2022-06-04 14:00] VITALS: BP 137/61
[2022-06-04 20:00] VITALS: BP 148/66
[2022-06-04] MEDS: LATANOPROST 0.005% OPHTH SOLN 2.5 ML OU SCH (21:51)
[2022-06-04] MEDS: SENNA 8.6 MG TAB (SENOKOT) PO SCH (21:54)
[2022-06-04] MEDS: LORATADINE 10 MG TAB PO SCH (21:54)
[2022-06-04] MEDS: RAMELTEON 8 MG TAB (ROZEREM) PO PRN (21:56)
[2022-06-05 06:00] VITALS: BP 129/65
[2022-06-05] MEDS: COMBIVENT RESPIMAT 100-20MCG INHALER 4GM INH SCH ×3 (06:31→19:13)
[2022-06-05] MEDS: SODIUM CHLORIDE HYPERTONIC 3% 15ML NEB SOL INH SCH ×2 (06:31)
[2022-06-05] MEDS: ADVAIR HFA 115/21MCG INHALER INH SCH ×2 (06:31→19:13)
[2022-06-05 07:11] LABS: BASO # 0.1 10^3/uL (0.0-0.2); BASO % 0.6 % (0.0-1.0); EOS # 0.1 10^3/uL (0.0-0.5); EOS % 0.8 % (0.0-3.0); HEMATOCRIT 36.6 % (36.0-47.0); HEMOGLOBIN 11.4 g/dl (12.0-15.5); LYMPH # 3.3 10^3/uL (1.5-5.0); MEAN CORPUSCULAR HEMOGLOBIN 29.7 pg (27.0-33.0); MEAN CORPUSCULAR HGB CONC 31.1 g/dl (32.0-36.5); MEAN CORPUSCULAR VOLUME 95.3 fl (80.0-96.0); MONO # 0.9 10^3/uL (0.0-0.8); MONO % 6.4 % (2.0-8.0); NEUTROPHILS # 9.7 10^3/uL (1.5-8.5); NEUTROPHILS % 67.1 % (36.0-66.0); PLATELET COUNT, AUTOMATED 365 10^3/uL (150-450); RED BLOOD COUNT 3.84 10^6/uL (4.00-5.40); WHITE BLOOD COUNT 14.5 10^3/uL (4.0-10.0)
[2022-06-05] MEDS: INSULIN LISPRO (NovoLOG) PER UNIT SC SCH ×4 (07:30→22:30)
[2022-06-05 07:40] LABS: BLOOD UREA NITROGEN 23 MG/DL (9-23); CARBON DIOXIDE LEVEL 29 MMOL/L (20-31); CHLORIDE LEVEL 101 MMOL/L (98-107); CREATININE FOR GFR 0.68 MG/DL (0.55-1.30); GLOMERULAR FILTRATION RATE > 60.0 (>39); GLUCOSE, FASTING 110 MG/DL (74-106); POTASSIUM SERUM 4.2 MMOL/L (3.5-5.1); SODIUM LEVEL 142 MMOL/L (136-145)
[2022-06-05] MEDS: RIVAROXABAN 15MG TAB (XARELTO) PO SCH ×2 (08:00→17:37)
[2022-06-05] MEDS: REMEDY PHYTOPLEX Z-GUARD PASTE 113GM TUBE (FROM STOREROOM PRODUCT) TOP SCH ×3 (09:00→22:32)
[2022-06-05] MEDS: DOCUSATE SODIUM 100MG CAPSULE PO SCH ×2 (09:01→22:29)
[2022-06-05] MEDS: predniSONE 10 MG TAB PO SCH (09:01)
[2022-06-05] MEDS: amLODIPine 5 MG TAB PO SCH ×2 (09:02→22:28)
[2022-06-05] MEDS: FUROSEMIDE 20 MG TAB PO SCH (09:02)
[2022-06-05] MEDS: PANTOPRAZOLE 40MG TAB (PROTONIX) PO SCH ×2 (09:02→22:29)
[2022-06-05] MEDS: DOXYCYCLINE HYCLATE 100MG TABLET PO SCH ×2 (09:03→22:28)
[2022-06-05] MEDS: LEVEMIR (INSULIN DETEMIR) 1 UNITS/0.01ML SC SCH (09:03)
[2022-06-05] MEDS: guaiFENesin 200 MG TAB PO SCH ×3 (09:03→22:28)
[2022-06-05] MEDS: ASCORBIC ACID 500 MG TAB PO SCH ×2 (09:03→22:27)
[2022-06-05] MEDS: FLUTICASONE PROP 0.05% NASAL SPRAY 16 GM (FLONASE) NARES SCH ×2 (09:07→22:31)
[2022-06-05] MEDS: POLYVINYL ALCOHOL OPHTH SOLN 15ML (LIQUITEARS) OU SCH ×3 (09:08→22:32)
[2022-06-05] MEDS: prednisoLONE ACET 1% OPHTH SUSP 5ML OD SCH ×4 (09:08→22:31)
[2022-06-05] MEDS: CYANOCOBALAMIN 500 MCG TAB PO SCH (09:09)
[2022-06-05] MEDS: SODIUM CHLORIDE NASAL 0.65% SPRAY BTL (OCEAN) SCH ×3 (09:09→22:31)
[2022-06-05] MEDS: SUCRALFATE 1 GM TAB PO SCH ×3 (12:02→22:29)
[2022-06-05 14:00] VITALS: BP 150/67
[2022-06-05 16:00] VITALS: BP 150/67
[2022-06-05 21:10] VITALS: BP 141/65
[2022-06-05] MEDS: SENNA 8.6 MG TAB (SENOKOT) PO SCH (22:28)
[2022-06-05] MEDS: LORATADINE 10 MG TAB PO SCH (22:28)
[2022-06-05] MEDS: LATANOPROST 0.005% OPHTH SOLN 2.5 ML OU SCH (22:31)
[2022-06-06 06:00] VITALS: BP 167/79
[2022-06-06] MEDS: COMBIVENT RESPIMAT 100-20MCG INHALER 4GM INH SCH ×3 (08:00→19:49)
[2022-06-06] MEDS: SODIUM CHLORIDE HYPERTONIC 3% 15ML NEB SOL INH SCH ×3 (08:00→23:03)
[2022-06-06] MEDS: TIOTROPIUM INHALER/CAPSULE (SPIRIVA) INH SCH (08:00)
[2022-06-06] MEDS: CYANOCOBALAMIN 500 MCG TAB PO SCH (08:27)
[2022-06-06] MEDS: guaiFENesin 200 MG TAB PO SCH ×3 (08:27→20:37)
[2022-06-06] MEDS: FUROSEMIDE 20 MG TAB PO SCH (08:27)
[2022-06-06] MEDS: PANTOPRAZOLE 40MG TAB (PROTONIX) PO SCH ×2 (08:27→20:37)
[2022-06-06] MEDS: RIVAROXABAN 15MG TAB (XARELTO) PO SCH ×2 (08:27→17:59)
[2022-06-06] MEDS: predniSONE 10 MG TAB PO SCH (08:27)
[2022-06-06] MEDS: DOCUSATE SODIUM 100MG CAPSULE PO SCH ×2 (08:28→20:36)
[2022-06-06] MEDS: DOXYCYCLINE HYCLATE 100MG TABLET PO SCH (08:28)
[2022-06-06] MEDS: ASCORBIC ACID 500 MG TAB PO SCH ×2 (08:28→20:37)
[2022-06-06] MEDS: amLODIPine 5 MG TAB PO SCH ×2 (08:28→20:37)
[2022-06-06] MEDS: SUCRALFATE 1 GM TAB PO SCH ×4 (08:28→20:37)
[2022-06-06] MEDS: INSULIN LISPRO (NovoLOG) PER UNIT SC SCH ×4 (08:29→20:37)
[2022-06-06] MEDS: LEVEMIR (INSULIN DETEMIR) 1 UNITS/0.01ML SC SCH (08:29)
[2022-06-06] MEDS: prednisoLONE ACET 1% OPHTH SUSP 5ML OD SCH ×4 (08:30→20:37)
[2022-06-06] MEDS: FLUTICASONE PROP 0.05% NASAL SPRAY 16 GM (FLONASE) NARES SCH ×2 (08:30→20:40)
[2022-06-06] MEDS: SODIUM CHLORIDE NASAL 0.65% SPRAY BTL (OCEAN) SCH ×3 (08:30→20:40)
[2022-06-06] MEDS: POLYVINYL ALCOHOL OPHTH SOLN 15ML (LIQUITEARS) OU SCH ×3 (08:31→20:39)
[2022-06-06] MEDS: REMEDY PHYTOPLEX Z-GUARD PASTE 113GM TUBE (FROM STOREROOM PRODUCT) TOP SCH ×3 (08:31→20:40)
[2022-06-06 14:00] VITALS: BP 154/70
[2022-06-06] MEDS: ADVAIR HFA 230/21MCG INHALER INH SCH (19:49)
[2022-06-06 20:00] VITALS: BP 177/77
[2022-06-06 20:34] VITALS: BP 137/64
[2022-06-06] MEDS: SENNA 8.6 MG TAB (SENOKOT) PO SCH (20:36)
[2022-06-06] MEDS: LORATADINE 10 MG TAB PO SCH (20:37)
[2022-06-06] MEDS: LATANOPROST 0.005% OPHTH SOLN 2.5 ML OU SCH (20:37)
[2022-06-07 05:53] VITALS: BP 154/68
[2022-06-07] MEDS: TIOTROPIUM INHALER/CAPSULE (SPIRIVA) INH SCH (07:40)
[2022-06-07] MEDS: COMBIVENT RESPIMAT 100-20MCG INHALER 4GM INH SCH ×3 (07:42→20:57)
[2022-06-07] MEDS: SODIUM CHLORIDE HYPERTONIC 3% 15ML NEB SOL INH SCH ×2 (07:42→14:22)
[2022-06-07] MEDS: ADVAIR HFA 230/21MCG INHALER INH SCH ×2 (07:42→20:56)
[2022-06-07] MEDS: LEVEMIR (INSULIN DETEMIR) 1 UNITS/0.01ML SC SCH (08:57)
[2022-06-07] MEDS: guaiFENesin 200 MG TAB PO SCH ×3 (08:57→21:58)
[2022-06-07] MEDS: SUCRALFATE 1 GM TAB PO SCH ×4 (08:57→21:59)
[2022-06-07] MEDS: RIVAROXABAN 15MG TAB (XARELTO) PO SCH ×2 (08:58→17:44)
[2022-06-07] MEDS: predniSONE 10 MG TAB PO SCH (08:58)
[2022-06-07] MEDS: PANTOPRAZOLE 40MG TAB (PROTONIX) PO SCH ×2 (08:58→21:59)
[2022-06-07] MEDS: INSULIN LISPRO (NovoLOG) PER UNIT SC SCH ×4 (08:58→21:00)
[2022-06-07] MEDS: FUROSEMIDE 20 MG TAB PO SCH (08:58)
[2022-06-07] MEDS: CYANOCOBALAMIN 500 MCG TAB PO SCH (08:58)
[2022-06-07] MEDS: DOCUSATE SODIUM 100MG CAPSULE PO SCH ×2 (08:59→21:58)
[2022-06-07] MEDS: amLODIPine 5 MG TAB PO SCH ×2 (08:59→21:59)
[2022-06-07] MEDS: ASCORBIC ACID 500 MG TAB PO SCH ×2 (08:59→21:59)
[2022-06-07] MEDS: prednisoLONE ACET 1% OPHTH SUSP 5ML OD SCH ×4 (08:59→21:59)
[2022-06-07] MEDS: REMEDY PHYTOPLEX Z-GUARD PASTE 113GM TUBE (FROM STOREROOM PRODUCT) TOP SCH ×3 (08:59→21:00)
[2022-06-07] MEDS: SODIUM CHLORIDE NASAL 0.65% SPRAY BTL (OCEAN) SCH ×3 (09:00→22:02)
[2022-06-07] MEDS: FLUTICASONE PROP 0.05% NASAL SPRAY 16 GM (FLONASE) NARES SCH ×2 (09:00→22:02)
[2022-06-07] MEDS: POLYVINYL ALCOHOL OPHTH SOLN 15ML (LIQUITEARS) OU SCH ×3 (09:01→22:00)
[2022-06-07 14:00] VITALS: BP 140/66
[2022-06-07 20:00] VITALS: BP 153/54
[2022-06-07] MEDS: SENNA 8.6 MG TAB (SENOKOT) PO SCH (21:58)
[2022-06-07] MEDS: LORATADINE 10 MG TAB PO SCH (21:58)
[2022-06-07] MEDS: LATANOPROST 0.005% OPHTH SOLN 2.5 ML OU SCH (22:00)
[2022-06-08 06:00] VITALS: BP 133/62
[2022-06-08] MEDS: SUCRALFATE 1 GM TAB PO SCH ×4 (07:30→21:55)
[2022-06-08] MEDS: ADVAIR HFA 230/21MCG INHALER INH SCH ×2 (08:00→20:00)
[2022-06-08] MEDS: TIOTROPIUM INHALER/CAPSULE (SPIRIVA) INH SCH (08:00)
[2022-06-08] MEDS: SODIUM CHLORIDE HYPERTONIC 3% 15ML NEB SOL INH SCH ×4 (08:00→23:53)
[2022-06-08] MEDS: COMBIVENT RESPIMAT 100-20MCG INHALER 4GM INH SCH ×3 (08:00→20:00)
[2022-06-08 08:12] LABS: BASO # 0.1 10^3/uL (0.0-0.2); BASO % 0.5 % (0.0-1.0); EOS # 0.2 10^3/uL (0.0-0.5); HEMATOCRIT 40.2 % (36.0-47.0); HEMOGLOBIN 12.3 g/dl (12.0-15.5); LYMPH # 3.9 10^3/uL (1.5-5.0); MEAN CORPUSCULAR HEMOGLOBIN 29.2 pg (27.0-33.0); MEAN CORPUSCULAR HGB CONC 30.6 g/dl (32.0-36.5); MEAN CORPUSCULAR VOLUME 95.5 fl (80.0-96.0); MONO % 5.9 % (2.0-8.0); NEUTROPHILS # 11.5 10^3/uL (1.5-8.5); NEUTROPHILS % 68.5 % (36.0-66.0); PLATELET COUNT, AUTOMATED 386 10^3/uL (150-450); RED BLOOD COUNT 4.21 10^6/uL (4.00-5.40); WHITE BLOOD COUNT 16.7 10^3/uL (4.0-10.0)
[2022-06-08 08:41] LABS: BLOOD UREA NITROGEN 22 MG/DL (9-23); CALCIUM LEVEL 8.8 MG/DL (8.3-10.6); CARBON DIOXIDE LEVEL 29 MMOL/L (20-31); CHLORIDE LEVEL 101 MMOL/L (98-107); CREATININE FOR GFR 0.72 MG/DL (0.55-1.30); GLOMERULAR FILTRATION RATE > 60.0 (>39); GLUCOSE, FASTING 112 MG/DL (74-106); SODIUM LEVEL 143 MMOL/L (136-145)
[2022-06-08] MEDS: amLODIPine 5 MG TAB PO SCH ×2 (08:53→21:56)
[2022-06-08] MEDS: LEVEMIR (INSULIN DETEMIR) 1 UNITS/0.01ML SC SCH (08:53)
[2022-06-08] MEDS: guaiFENesin 200 MG TAB PO SCH ×3 (08:54→21:55)
[2022-06-08] MEDS: ASCORBIC ACID 500 MG TAB PO SCH ×2 (08:54→21:55)
[2022-06-08] MEDS: predniSONE 10 MG TAB PO SCH (08:54)
[2022-06-08] MEDS: CYANOCOBALAMIN 500 MCG TAB PO SCH (08:54)
[2022-06-08] MEDS: DOCUSATE SODIUM 100MG CAPSULE PO SCH ×2 (08:54→21:00)
[2022-06-08] MEDS: PANTOPRAZOLE 40MG TAB (PROTONIX) PO SCH ×2 (08:54→21:55)
[2022-06-08] MEDS: FUROSEMIDE 20 MG TAB PO SCH (08:55)
[2022-06-08] MEDS: INSULIN LISPRO (NovoLOG) PER UNIT SC SCH ×4 (08:55→21:56)
[2022-06-08] MEDS: FLUTICASONE PROP 0.05% NASAL SPRAY 16 GM (FLONASE) NARES SCH ×2 (08:56→21:56)
[2022-06-08] MEDS: POLYVINYL ALCOHOL OPHTH SOLN 15ML (LIQUITEARS) OU SCH ×3 (08:57→21:57)
[2022-06-08] MEDS: SODIUM CHLORIDE NASAL 0.65% SPRAY BTL (OCEAN) SCH ×3 (08:57→21:57)
[2022-06-08] MEDS: prednisoLONE ACET 1% OPHTH SUSP 5ML OD SCH ×4 (08:57→21:57)
[2022-06-08] MEDS: REMEDY PHYTOPLEX Z-GUARD PASTE 113GM TUBE (FROM STOREROOM PRODUCT) TOP SCH ×3 (08:58→21:00)
[2022-06-08] MEDS: RIVAROXABAN 15MG TAB (XARELTO) PO SCH ×2 (11:53→16:56)
[2022-06-08 14:00] VITALS: BP 144/65
[2022-06-08 19:38] VITALS: BP 159/57
[2022-06-08] MEDS: SENNA 8.6 MG TAB (SENOKOT) PO SCH (21:00)
[2022-06-08] MEDS: LORATADINE 10 MG TAB PO SCH (21:55)
[2022-06-08] MEDS: LATANOPROST 0.005% OPHTH SOLN 2.5 ML OU SCH (21:57)
[2022-06-09 05:30] VITALS: BP 123/58
[2022-06-09] MEDS: SUCRALFATE 1 GM TAB PO SCH ×4 (07:38→21:03)
[2022-06-09] MEDS: amLODIPine 5 MG TAB PO SCH ×2 (07:39→21:03)
[2022-06-09] MEDS: FUROSEMIDE 20 MG TAB PO SCH (07:39)
[2022-06-09] MEDS: PANTOPRAZOLE 40MG TAB (PROTONIX) PO SCH ×2 (07:39→21:03)
[2022-06-09] MEDS: CYANOCOBALAMIN 500 MCG TAB PO SCH (07:39)
[2022-06-09] MEDS: RIVAROXABAN 15MG TAB (XARELTO) PO SCH ×2 (07:39→16:47)
[2022-06-09] MEDS: LEVEMIR (INSULIN DETEMIR) 1 UNITS/0.01ML SC SCH (07:40)
[2022-06-09] MEDS: predniSONE 10 MG TAB PO SCH (07:40)
[2022-06-09] MEDS: guaiFENesin 200 MG TAB PO SCH ×3 (07:40→21:03)
[2022-06-09] MEDS: ASCORBIC ACID 500 MG TAB PO SCH ×2 (07:40→21:03)
[2022-06-09] MEDS: SODIUM CHLORIDE NASAL 0.65% SPRAY BTL (OCEAN) SCH ×3 (07:41→21:05)
[2022-06-09] MEDS: DOCUSATE SODIUM 100MG CAPSULE PO SCH ×2 (07:41→21:00)
[2022-06-09] MEDS: INSULIN LISPRO (NovoLOG) PER UNIT SC SCH ×4 (07:41→21:00)
[2022-06-09] MEDS: FLUTICASONE PROP 0.05% NASAL SPRAY 16 GM (FLONASE) NARES SCH ×2 (07:42→21:05)
[2022-06-09] MEDS: POLYVINYL ALCOHOL OPHTH SOLN 15ML (LIQUITEARS) OU SCH ×3 (07:42→21:06)
[2022-06-09] MEDS: prednisoLONE ACET 1% OPHTH SUSP 5ML OD SCH ×4 (07:42→21:05)
[2022-06-09] MEDS: REMEDY PHYTOPLEX Z-GUARD PASTE 113GM TUBE (FROM STOREROOM PRODUCT) TOP SCH ×3 (07:43→21:00)
[2022-06-09] MEDS: SODIUM CHLORIDE HYPERTONIC 3% 15ML NEB SOL INH SCH ×2 (08:00→16:00)
[2022-06-09] MEDS: COMBIVENT RESPIMAT 100-20MCG INHALER 4GM INH SCH ×3 (08:00→20:00)
[2022-06-09] MEDS: TIOTROPIUM INHALER/CAPSULE (SPIRIVA) INH SCH (08:00)
[2022-06-09] MEDS: ADVAIR HFA 230/21MCG INHALER INH SCH ×2 (08:00→20:00)
[2022-06-09 14:00] VITALS: BP 150/65
[2022-06-09 20:00] VITALS: BP 166/86
[2022-06-09] MEDS: SENNA 8.6 MG TAB (SENOKOT) PO SCH (21:00)
[2022-06-09] MEDS: LORATADINE 10 MG TAB PO SCH (21:03)
[2022-06-09] MEDS: LATANOPROST 0.005% OPHTH SOLN 2.5 ML OU SCH (21:05)
[2022-06-09 23:52] VITALS: BP 138/78
[2022-06-10 06:00] VITALS: BP 162/76
[2022-06-10] MEDS: COMBIVENT RESPIMAT 100-20MCG INHALER 4GM INH SCH (07:42)
[2022-06-10] MEDS: SODIUM CHLORIDE HYPERTONIC 3% 15ML NEB SOL INH SCH ×2 (07:42)
[2022-06-10] MEDS: ADVAIR HFA 230/21MCG INHALER INH SCH (07:42)
[2022-06-10] MEDS: TIOTROPIUM INHALER/CAPSULE (SPIRIVA) INH SCH (07:42)
[2022-06-10] MEDS ORDERED: PANT40TA29 PO (07:43)
[2022-06-10] MEDS ORDERED: XARE15TA PO (07:43)
[2022-06-10] MEDS ORDERED: FURO20TA2 PO (07:43)
[2022-06-10] MEDS ORDERED: PRED10TA2 PO (07:43)
[2022-06-10] MEDS ORDERED: AMLO1TAB24 PO (07:43)
[2022-06-10] MEDS ORDERED: ADVA230A INH (07:43)
[2022-06-10] MEDS ORDERED: TIOT18INH INH (07:43)
[2022-06-10] MEDS: FUROSEMIDE 20 MG TAB PO SCH (08:00)
[2022-06-10] MEDS: PANTOPRAZOLE 40MG TAB (PROTONIX) PO SCH (08:00)
[2022-06-10] MEDS: guaiFENesin 200 MG TAB PO SCH (08:00)
[2022-06-10] MEDS: RIVAROXABAN 15MG TAB (XARELTO) PO SCH (08:00)
[2022-06-10] MEDS: SUCRALFATE 1 GM TAB PO SCH ×2 (08:00→12:08)
[2022-06-10] MEDS: ASCORBIC ACID 500 MG TAB PO SCH (08:00)
[2022-06-10] MEDS: CYANOCOBALAMIN 500 MCG TAB PO SCH (08:00)
[2022-06-10] MEDS: predniSONE 10 MG TAB PO SCH (08:01)
[2022-06-10] MEDS: DOCUSATE SODIUM 100MG CAPSULE PO SCH (08:01)
[2022-06-10] MEDS: INSULIN LISPRO (NovoLOG) PER UNIT SC SCH ×2 (08:02→12:07)
[2022-06-10] MEDS: LEVEMIR (INSULIN DETEMIR) 1 UNITS/0.01ML SC SCH (08:02)
[2022-06-10 08:03] VITALS: BP 162/76
[2022-06-10] MEDS: FLUTICASONE PROP 0.05% NASAL SPRAY 16 GM (FLONASE) NARES SCH (08:03)
[2022-06-10] MEDS: SODIUM CHLORIDE NASAL 0.65% SPRAY BTL (OCEAN) SCH (08:03)
[2022-06-10] MEDS: prednisoLONE ACET 1% OPHTH SUSP 5ML OD SCH ×2 (08:03→12:08)
[2022-06-10] MEDS: amLODIPine 5 MG TAB PO SCH (08:03)
[2022-06-10] MEDS: POLYVINYL ALCOHOL OPHTH SOLN 15ML (LIQUITEARS) OU SCH (08:04)
[2022-06-10] MEDS: REMEDY PHYTOPLEX Z-GUARD PASTE 113GM TUBE (FROM STOREROOM PRODUCT) TOP SCH (08:04)
== END 2022-06-10 13:30 | disposition home or self-care (01) | DRG 57 ==
LOC: M PM&R 13:20
PROVIDERS: ADMIT Physical Medicine & Rehabilitation; ATTEND Physical Medicine & Rehabilitation
DX: I69.398 Other sequelae of cerebral infarction (principal); J44.1 Chronic obstructive pulmonary disease with (acute) exacerbation; R53.1 Weakness; E11.51 Type 2 diabetes mellitus with diabetic peripheral angiopathy without gangrene; E78.5 Hyperlipidemia, unspecified; R60.0 Localized edema; G51.0 Bell's palsy; Z74.09 Other reduced mobility; Z74.1 Need for assistance with personal care; Z86.711 Personal history of pulmonary embolism; Z86.718 Personal history of other venous thrombosis and embolism; Z79.01 Long term (current) use of anticoagulants; G25.81 Restless legs syndrome; Z79.899 Other long term (current) drug therapy; Z88.0 Allergy status to penicillin; Z88.8 Allergy status to other drugs, medicaments and biological substances; E04.1 Nontoxic single thyroid nodule

== ENCOUNTER → 2022-09-09 | Outpatient (CLI) | payer MEDICARE, BC, OTHER ==
[~2022-09-09] MED LIST changes: +ADVA115A INH; +ADVA230A INH; +AMLO1TAB24 PO; +DOXY100T PO; +FURO20TA2 PO; +LIDOCAINE 1% MDV 20ML VIAL As Ordered ONE; +MUCI600T31 PO; +PRED10TA2 PO; +TIOT18INH INH
[2022-09-09 15:23] VITALS: BP 164/71
== END ==
LOC: M IRPRO 13:07
PROVIDERS: ATTEND Internal Medicine Endocrinology, Diabetes & Metabolism
DX: E04.2 Nontoxic multinodular goiter (principal)

== ENCOUNTER → 2022-11-19 | Outpatient (REF) | payer MEDICARE, OTHER ==
[~2022-11-19] MED LIST changes: +ARTIDRO4 OP; +ARTIDRO4 OS; +BACT400T PO; +BACT800T5 PO; -LIDOCAINE 1% MDV 20ML VIAL As Ordered ONE; +METF-839 PO; +MILKSUS3 PO; +MUPI2OI TOP; -POLYOPD OP; -POLYOPD OS
[2022-11-19 15:09] LABS: APPEARANCE, URINE HAZY (CLEAR); BACTERIA, URINE AUTO 1+ (NEGATIVE); BILIRUBIN, URINE AUTO NEGATIVE (NEGATIVE); BLOOD, URINE BLOOD 2+ (NEGATIVE); COLOR, URINE STRAW (YELLOW); GLUCOSE, URINE (UA) AUTO NEGATIVE (NEGATIVE); KETONE, URINE AUTO NEGATIVE (NEGATIVE); LEUKOCYTE ESTERASE, URINE AUTO 3+ (NEGATIVE); NITRITE, URINE AUTO POSITIVE (NEGATIVE); PROTEIN, URINE AUTO NEGATIVE (NEGATIVE); RBC, URINE AUTO 64 /HPF (0-3); SPECIFIC GRAVITY URINE AUTO 1.006 (1.002-1.035); SQUAMOUS EPITHELIAL CELL UR AU 1 /HPF (0-6); UROBILINOGEN, URINE AUTO 0.2 mg/dL (0.0-2.0); WBC, URINE AUTO 183 /HPF (0-3)
== END ==
LOC: M LABSMT 08:25
PROVIDERS: ATTEND Urology
DX: N20.0 Calculus of kidney (principal); N39.0 Urinary tract infection, site not specified

== ENCOUNTER 2022-11-27 06:09 | Day surgery (SDC) | payer MEDICARE, BC, OTHER ==
[~2022-11-27] VITALS: Ht 160 cm; Wt 127.5 kg
[~2022-11-27 06:09] MED LIST changes: +CYAN-1 PO; -CYAN100050 PO
[2022-11-27] MEDS ORDERED: LR 1,000 ML IV SCH ×2 (06:45→09:15)
[2022-11-27] MEDS ORDERED: BACTDSTA (06:47)
[2022-11-27] MEDS ORDERED: ZYRTTAB8 PO (06:48)
[2022-11-27] MEDS ORDERED: ALIG4CAP PO (06:48)
[2022-11-27] MEDS ORDERED: ONDANSETRON 4MG 2ML VIAL As Ordered ONE (06:54)
[2022-11-27] MEDS ORDERED: LIDOCAINE 2% 100MG/5ML SDV (FOR ANES.) As Ordered ONE (06:54)
[2022-11-27] MEDS ORDERED: propofoL 200 MG/20 ML VIAL As Ordered ONE (06:54)
[2022-11-27] MEDS ORDERED: fentaNYL 100 MCG/2 ML INJECTION As Ordered ONE (06:57)
[2022-11-27] MEDS ORDERED: GENTAMICIN 100 MG in IV 1 EA IV ONE (07:05)
[2022-11-27] MEDS ORDERED: VANCOMYCIN HCL 1,000 MG, VIAL MATE ADAPTER 1 EACH in D5W 250 ML IV ONE (07:05)
[2022-11-27] MEDS ORDERED: ISOVUE-300 61% 100ML VIAL As Ordered ONE (07:15)
[2022-11-27] MEDS ORDERED: ACETAMINOPHEN 1000MG 100ML IV BAG As Ordered ONE ×2 (08:06→08:14)
[2022-11-27] MEDS ORDERED: ONDANSETRON 4MG 2ML VIAL IV PRN (09:15)
[2022-11-27] MEDS ORDERED: oxyCODONE 5MG TAB PO PRN (09:15)
[2022-11-27] MEDS ORDERED: HYDROMORPHONE HCL 0.5 MG/ 0.5 ML SYRINGE IV PRN (09:15)
[2022-11-27] MEDS ORDERED: fentaNYL 100 MCG/2 ML INJECTION IV PRN (09:15)
[2022-11-27] MEDS ORDERED: PERCOCET 5MG/325MG TAB PO PRN (09:30)
[2022-11-27 10:50] VITALS: BP 139/65; TEMP 97.7; O2SAT 96
[2022-12-02 23:07] LABS: Amm Acid Urate 10 % (.); Size 8x11 mm (.)
== END 2022-11-27 11:03 | disposition home or self-care (01) ==
LOC: M SDC 06:09
PROVIDERS: ATTEND Urology
DX: N20.2 Calculus of kidney with calculus of ureter (principal); E11.9 Type 2 diabetes mellitus without complications; K21.9 Gastro-esophageal reflux disease without esophagitis; Z86.718 Personal history of other venous thrombosis and embolism; E55.9 Vitamin D deficiency, unspecified; Z86.73 Personal history of transient ischemic attack (TIA), and cerebral infarction without residual deficits; M81.0 Age-related osteoporosis without current pathological fracture; F41.9 Anxiety disorder, unspecified; E21.3 Hyperparathyroidism, unspecified; Z79.01 Long term (current) use of anticoagulants; Z79.84 Long term (current) use of oral hypoglycemic drugs; Z79.899 Other long term (current) drug therapy; Z88.0 Allergy status to penicillin; Z88.8 Allergy status to other drugs, medicaments and biological substances; Z88.1 Allergy status to other antibiotic agents
CPT/HCPCS: 52356; 76000; 82365; C1769; C1894; C2617; J0131; J1100; J1580; J2405; J3010; Q9967

== ENCOUNTER → 2023-02-04 | Outpatient (REF) | payer MEDICARE, OTHER ==
[~2023-02-04] MED LIST changes: +ALIG4CAP PO; +BACTDSTA; +ZYRTTAB8 PO
[2023-02-04 13:13] LABS: FREE T4 1.16 NG/DL (0.89-1.76)
[2023-02-04 13:14] LABS: ALKALINE PHOSPHATASE 71 U/L (46-116); ALT/SGPT 11 U/L (7.0-40); AST/SGOT 16 U/L (<34); BILIRUBIN,TOTAL 0.6 MG/DL (0.3-1.2); BLOOD UREA NITROGEN 17 MG/DL (9-23); CALCIUM LEVEL 10.6 MG/DL (8.3-10.6); CARBON DIOXIDE LEVEL 34 MMOL/L (20-31); CHLORIDE LEVEL 100 MMOL/L (98-107); CHOLESTEROL LEVEL 215 MG/DL (<200); CHOLESTEROL RISK RATIO 4.29 (<5); CREATININE FOR GFR 0.86 MG/DL (0.55-1.30); GLOMERULAR FILTRATION RATE > 60.0 (>39); GLUCOSE, FASTING 107 MG/DL (74-106); HDL CHOLESTEROL 50.1 MG/DL (>40); LDL CHOLESTEROL 108.1 MG/DL (<100); NON-HDL-C 164.9 MG/DL; POTASSIUM SERUM 4.4 MMOL/L (3.5-5.1); PTH INTACT 48.2 PG/ML (18.5-88.0); SODIUM LEVEL 142 MMOL/L (136-145); THYROID STIMULATING HORMONE 2.893 uIU/ML (0.55-4.78); TOTAL PROTEIN 7.7 G/DL (5.7-8.2); TRIGLYCERIDES LEVEL 284 MG/DL (<150)
[2023-02-04 13:18] LABS: HEMATOCRIT 41.1 % (36.0-47.0); HEMOGLOBIN 12.2 g/dl (12.0-15.5); MEAN CORPUSCULAR HEMOGLOBIN 28.6 pg (27.0-33.0); MEAN CORPUSCULAR HGB CONC 29.7 g/dl (32.0-36.5); MEAN CORPUSCULAR VOLUME 96.3 fl (80.0-96.0); PLATELET COUNT, AUTOMATED 354 10^3/uL (150-450); RED BLOOD COUNT 4.27 10^6/uL (4.00-5.40); WHITE BLOOD COUNT 9.2 10^3/uL (4.0-10.0)
[2023-02-04 13:22] LABS: HEMOGLOBIN A1c 5.5 % (4.0-6.0)
== END ==
LOC: M SFHCADAM 10:25
PROVIDERS: ATTEND Family Medicine
DX: E78.2 Mixed hyperlipidemia (principal); E11.9 Type 2 diabetes mellitus without complications; I26.99 Other pulmonary embolism without acute cor pulmonale; E04.1 Nontoxic single thyroid nodule; E21.0 Primary hyperparathyroidism; Z87.440 Personal history of urinary (tract) infections; Z87.442 Personal history of urinary calculi

== ENCOUNTER → 2023-05-04 | Outpatient (REF) | payer MEDICARE, BC, OTHER ==
[2023-05-04 13:27] LABS: BLOOD UREA NITROGEN 17 MG/DL (9-23); CALCIUM LEVEL 9.8 MG/DL (8.3-10.6); CARBON DIOXIDE LEVEL 33 MMOL/L (20-31); CHLORIDE LEVEL 102 MMOL/L (98-107); CREATININE FOR GFR 0.82 MG/DL (0.55-1.30); GLOMERULAR FILTRATION RATE > 60.0 (>39); GLUCOSE, FASTING 107 MG/DL (74-106); POTASSIUM SERUM 4.8 MMOL/L (3.5-5.1); SODIUM LEVEL 143 MMOL/L (136-145)
[2023-05-04 13:40] LABS: HEMOGLOBIN A1c 5.7 % (4.0-6.0)
== END ==
LOC: M SFHCADAM 10:43
PROVIDERS: ATTEND Family Medicine
DX: E11.9 Type 2 diabetes mellitus without complications (principal)

== ENCOUNTER → 2023-08-11 | Outpatient (CLI) | payer MEDICARE, BC, OTHER | LOC: M ADAMS 10:09 | PROVIDERS: ATTEND Family Medicine | DX: M19.012 Primary osteoarthritis, left shoulder (principal) ==

== ENCOUNTER → 2023-08-11 | Outpatient (REF) | payer MEDICARE, BC, OTHER ==
[2023-08-11 14:13] LABS: BLOOD UREA NITROGEN 14 MG/DL (9-23); CARBON DIOXIDE LEVEL 34 MMOL/L (20-31); CHLORIDE LEVEL 103 MMOL/L (98-107); CREATININE FOR GFR 0.75 MG/DL (0.55-1.30); GLOMERULAR FILTRATION RATE > 60.0 (>39); GLUCOSE, FASTING 111 MG/DL (74-106); POTASSIUM SERUM 4.9 MMOL/L (3.5-5.1); SODIUM LEVEL 143 MMOL/L (136-145)
[2023-08-11 14:51] LABS: HEMOGLOBIN A1c 5.9 % (4.0-6.0)
== END ==
LOC: M SFHCADAM 09:57
PROVIDERS: ATTEND Family Medicine
DX: E11.42 Type 2 diabetes mellitus with diabetic polyneuropathy (principal); M25.512 Pain in left shoulder

== ENCOUNTER → 2023-09-22 | Outpatient (REF) | payer MEDICARE, BC ==
[2023-09-22 18:10] LABS: BASO # 0.1 10^3/uL (0.0-0.2); BASO % 0.5 % (0.0-1.0); EOS % 0.2 % (0.0-3.0); HEMOGLOBIN 13.3 g/dl (12.0-15.5); LYMPH # 2.1 10^3/uL (1.5-5.0); LYMPH % 11.6 % (24.0-44.0); MEAN CORPUSCULAR HEMOGLOBIN 29.6 pg (27.0-33.0); MEAN CORPUSCULAR HGB CONC 30.9 g/dl (32.0-36.5); MEAN CORPUSCULAR VOLUME 95.6 fl (80.0-96.0); NEUTROPHILS # 13.8 10^3/uL (1.5-8.5); NEUTROPHILS % 76.1 % (36.0-66.0); PLATELET COUNT, AUTOMATED 319 10^3/uL (150-450); WHITE BLOOD COUNT 18.1 10^3/uL (4.0-10.0)
[2023-09-22 18:26] LABS: CALCIUM LEVEL 9.1 MG/DL (8.3-10.6); CREATININE FOR GFR 1.04 MG/DL (0.55-1.30); GLOMERULAR FILTRATION RATE 54.7 (>39); POTASSIUM SERUM 4.5 MMOL/L (3.5-5.1)
== END ==
LOC: M SFHCADAM 14:25
PROVIDERS: ATTEND Physician Assistant
DX: R30.0 Dysuria (principal); Z87.440 Personal history of urinary (tract) infections

== ENCOUNTER → 2023-09-29 | Outpatient (REF) | payer MEDICARE, BC ==
[2023-09-29 18:45] LABS: BASO # 0.1 10^3/uL (0.0-0.2); BASO % 0.6 % (0.0-1.0); EOS # 0.2 10^3/uL (0.0-0.5); EOS % 2.1 % (0.0-3.0); HEMATOCRIT 39.4 % (36.0-47.0); HEMOGLOBIN 11.9 g/dl (12.0-15.5); LYMPH % 28.7 % (24.0-44.0); MEAN CORPUSCULAR HEMOGLOBIN 29.8 pg (27.0-33.0); MEAN CORPUSCULAR HGB CONC 30.2 g/dl (32.0-36.5); MEAN CORPUSCULAR VOLUME 98.5 fl (80.0-96.0); MONO # 0.8 10^3/uL (0.0-0.8); PLATELET COUNT, AUTOMATED 450 10^3/uL (150-450); WHITE BLOOD COUNT 10.3 10^3/uL (4.0-10.0)
== END ==
LOC: M SFHCADAM 14:50
PROVIDERS: ATTEND Physician Assistant
DX: N39.0 Urinary tract infection, site not specified (principal)

== ENCOUNTER → 2023-10-15 | Outpatient (REF) | payer MEDICARE, BC | LOC: M SFHCADAM 14:09 | PROVIDERS: ATTEND Physician Assistant | DX: N30.00 Acute cystitis without hematuria (principal) ==

== ENCOUNTER → 2024-04-06 | Outpatient (REF) | payer MEDICARE, BC ==
[2024-04-06 13:13] LABS: HEMATOCRIT 33.6 % (36.0-47.0); HEMOGLOBIN 10.1 g/dl (12.0-15.5); MEAN CORPUSCULAR HEMOGLOBIN 27.2 pg (27.0-33.0); MEAN CORPUSCULAR HGB CONC 30.1 g/dl (32.0-36.5); MEAN CORPUSCULAR VOLUME 90.6 fl (80.0-96.0); PLATELET COUNT, AUTOMATED 486 10^3/uL (150-450); RED BLOOD COUNT 3.71 10^6/uL (4.00-5.40); WHITE BLOOD COUNT 11.7 10^3/uL (4.0-10.0)
[2024-04-06 13:17] LABS: ALKALINE PHOSPHATASE 78 U/L (46-116); ALT/SGPT < 9 U/L (7.0-40); AST/SGOT < 8 U/L (<34); BILIRUBIN,TOTAL 0.4 MG/DL (0.3-1.2); BLOOD UREA NITROGEN 13 MG/DL (9-23); CALCIUM LEVEL 9.9 MG/DL (8.3-10.6); CARBON DIOXIDE LEVEL 36 MMOL/L (20-31); CHLORIDE LEVEL 103 MMOL/L (98-107); CHOLESTEROL LEVEL 142 MG/DL (<200); CHOLESTEROL RISK RATIO 4.62 (<5); GLOMERULAR FILTRATION RATE 46.4 (>39); GLUCOSE, FASTING 118 MG/DL (74-106); HDL CHOLESTEROL 30.7 MG/DL (>40); LDL CHOLESTEROL 70.1 MG/DL (<100); NON-HDL-C 111.3 MG/DL; POTASSIUM SERUM 4.9 MMOL/L (3.5-5.1); SODIUM LEVEL 141 MMOL/L (136-145); TOTAL PROTEIN 7.1 G/DL (5.7-8.2); TRIGLYCERIDES LEVEL 206 MG/DL (<150)
[2024-04-06 13:18] LABS: FREE T4 1.32 NG/DL (0.89-1.76)
[2024-04-06 13:19] LABS: THYROID STIMULATING HORMONE 1.618 uIU/ML (0.55-4.78)
[2024-04-06 13:36] LABS: HEMOGLOBIN A1c 5.8 % (4.0-6.0)
== END ==
LOC: M SFHCADAM 08:44
PROVIDERS: ATTEND Family Medicine
DX: I26.99 Other pulmonary embolism without acute cor pulmonale (principal); E11.9 Type 2 diabetes mellitus without complications; E78.2 Mixed hyperlipidemia; E04.1 Nontoxic single thyroid nodule; T07.XXXA Unspecified multiple injuries, initial encounter

== ENCOUNTER → 2024-04-13 | Outpatient (REF) | payer MEDICARE, BC ==
[~2024-04-13] MED LIST changes: +NYST1POW3 TOP; -NYST1POW9 TOP
[2024-04-13 13:02] LABS: IRON (FE) 33 UG/DL (50-170)
[2024-04-13 13:03] LABS: PERCENT SATURATION 14.2 % (13.2-45.0); TOTAL IRON BINDING CAPACITY 232 UG/DL (250-425)
[2024-04-13 13:04] LABS: FERRITIN 202.2 NG/ML (7.3-270.7); FOLATE 15.46 NG/ML (>5.4)
[2024-04-13 13:09] LABS: VITAMIN B12 LEVEL > 2000 PG/ML (211-911)
[2024-04-14 06:57] LABS: PROTEIN, TOTAL SO 7.2 g/dL (6.1-8.1)
[2024-04-14 13:50] LABS: FREE KAPPA LIGHT CHAINS SERUM 76.9 mg/L (3.3-19.4); FREE LAMBDA LIGHT CHAINS SERUM 29.7 mg/L (5.7-26.3); KAPPA/LAMBDA RATIO SERUM 2.59 (0.26-1.65)
[2024-04-17 08:32] LABS: ALBUMIN SO 3.4 g/dL (3.8-4.8); ALPHA 1 GLOBULINS SO 0.4 g/dL (0.2-0.3); ALPHA 2 GLOBULINS SO 1.2 g/dL (0.5-0.9); BETA 2 GLOBULIN SO 0.4 g/dL (0.2-0.5); BETA GLOBULIN SO 0.4 g/dL (0.4-0.6); GAMMA GLOBULINS SO 1.3 g/dL (0.8-1.7)
== END ==
LOC: M SFHCADAM 09:35
PROVIDERS: ATTEND Family Medicine
DX: D53.9 Nutritional anemia, unspecified (principal); N18.31 Chronic kidney disease, stage 3a

== ENCOUNTER → 2024-04-28 | Outpatient (REF) | payer MEDICARE, BC ==
[2024-04-28 14:20] LABS: APPEARANCE, URINE HAZY (CLEAR); BACTERIA, URINE AUTO 2+ (NEGATIVE); BILIRUBIN, URINE AUTO NEGATIVE (NEGATIVE); BLOOD, URINE BLOOD NEGATIVE (NEGATIVE); COLOR, URINE YELLOW (YELLOW); GLUCOSE, URINE (UA) AUTO NEGATIVE (NEGATIVE); KETONE, URINE AUTO NEGATIVE (NEGATIVE); LEUKOCYTE ESTERASE, URINE AUTO 2+ (NEGATIVE); NITRITE, URINE AUTO NEGATIVE (NEGATIVE); PROTEIN, URINE AUTO NEGATIVE (NEGATIVE); RBC, URINE AUTO 16 /HPF (0-3); SPECIFIC GRAVITY URINE AUTO 1.016 (1.002-1.035); SQUAMOUS EPITHELIAL CELL UR AU 15 /HPF (0-6); UROBILINOGEN, URINE AUTO 0.2 mg/dL (0.0-2.0); WBC, URINE AUTO 44 /HPF (0-3)
[2024-04-28 14:24] LABS: BASO # 0.1 10^3/uL (0.0-0.2); BASO % 0.7 % (0.0-1.0); EOS # 0.2 10^3/uL (0.0-0.5); EOS % 1.6 % (0.0-3.0); HEMOGLOBIN 10.3 g/dl (12.0-15.5); LYMPH # 2.2 10^3/uL (1.5-5.0); MEAN CORPUSCULAR HEMOGLOBIN 27.3 pg (27.0-33.0); MEAN CORPUSCULAR HGB CONC 30.3 g/dl (32.0-36.5); MEAN CORPUSCULAR VOLUME 90.2 fl (80.0-96.0); MONO # 0.8 10^3/uL (0.0-0.8); MONO % 7.8 % (2.0-8.0); NEUTROPHILS # 7.3 10^3/uL (1.5-8.5); NEUTROPHILS % 68.6 % (36.0-66.0); PLATELET COUNT, AUTOMATED 361 10^3/uL (150-450); RED BLOOD COUNT 3.77 10^6/uL (4.00-5.40); WHITE BLOOD COUNT 10.7 10^3/uL (4.0-10.0)
[2024-04-28 14:27] LABS: ALBUMIN 3.4 G/DL (3.2-5.2); ALKALINE PHOSPHATASE 76 U/L (35-104); ALT/SGPT < 9 U/L (7.0-40); AST/SGOT 9 U/L (<34); BILIRUBIN,TOTAL 0.6 MG/DL (0.3-1.2); BLOOD UREA NITROGEN 16 MG/DL (9-23); CALCIUM LEVEL 9.7 MG/DL (8.3-10.6); CARBON DIOXIDE LEVEL 30 MMOL/L (20-31); CHLORIDE LEVEL 100 MMOL/L (98-107); CREATININE FOR GFR 1.04 MG/DL (0.55-1.30); GLOMERULAR FILTRATION RATE 54.7 (>39); GLUCOSE, FASTING 114 MG/DL (74-106); POTASSIUM SERUM 4.4 MMOL/L (3.5-5.1); SODIUM LEVEL 136 MMOL/L (136-145); TOTAL PROTEIN 7.6 G/DL (5.7-8.2)
== END ==
LOC: M SFHCADAM 08:15
PROVIDERS: ATTEND Physician Assistant
DX: N30.00 Acute cystitis without hematuria (principal)

== ENCOUNTER → 2024-09-22 | Outpatient (REF) | payer MEDICARE, BC ==
[~2024-09-22] MED LIST changes: -ALIG4CAP PO; +ALIG4CAP3 PO
[2024-09-22 18:59] LABS: HEMOGLOBIN 12.1 g/dl (12.0-15.5); MEAN CORPUSCULAR HEMOGLOBIN 28.2 pg (27.0-33.0); MEAN CORPUSCULAR HGB CONC 30.3 g/dl (32.0-36.5); MEAN CORPUSCULAR VOLUME 93.2 fl (80.0-96.0); PLATELET COUNT, AUTOMATED 252 10^3/uL (150-450); RED BLOOD COUNT 4.29 10^6/uL (4.00-5.40); WHITE BLOOD COUNT 10.6 10^3/uL (4.0-10.0)
[2024-09-22 19:12] LABS: HEMOGLOBIN A1c 5.7 % (4.0-6.0)
[2024-09-22 19:23] LABS: PERCENT SATURATION 7.1 % (13.2-45.0)
[2024-09-22 19:45] LABS: ALBUMIN 3.8 G/DL (3.2-5.2); BILIRUBIN,TOTAL 0.3 MG/DL (0.3-1.2); CALCIUM LEVEL 9.5 MG/DL (8.3-10.6); CREATININE FOR GFR 0.94 MG/DL (0.55-1.30); FERRITIN 93.3 NG/ML (7.3-270.7); GLOMERULAR FILTRATION RATE 62.1 (>39); POTASSIUM SERUM 4.9 MMOL/L (3.5-5.1); TOTAL PROTEIN 7.6 G/DL (5.7-8.2)
== END ==
LOC: M SFHCADAM 14:25
PROVIDERS: ATTEND Family Medicine
DX: D53.9 Nutritional anemia, unspecified (principal); N18.31 Chronic kidney disease, stage 3a; E11.9 Type 2 diabetes mellitus without complications

== ENCOUNTER → 2025-02-27 | Outpatient (CLI) | payer MEDICARE, BC | LOC: M PLAIMG 09:39 | PROVIDERS: ATTEND Family Medicine | DX: I08.0 Rheumatic disorders of both mitral and aortic valves (principal) ==

== ENCOUNTER → 2025-03-23 | Outpatient (REF) | payer MEDICARE, BC ==
[2025-03-23 13:28] LABS: PLATELET COUNT, AUTOMATED 301 10^3/uL (150-450)
[2025-03-23 13:32] LABS: ALT/SGPT 13.0 U/L (7.0-40); AST/SGOT 19.0 U/L (<34); CALCIUM LEVEL 9.6 MG/DL (8.3-10.6); CARBON DIOXIDE LEVEL 34.0 MMOL/L (20-31); CHLORIDE LEVEL 102.0 MMOL/L (98-107); CHOLESTEROL LEVEL 228.0 MG/DL (<200); CHOLESTEROL RISK RATIO 4.07 (<5); CREATININE FOR GFR 1.15 MG/DL (0.55-1.30); GLOMERULAR FILTRATION RATE 48.8 (>39); LDL CHOLESTEROL 133.3 MG/DL (<100); NON-HDL-C 172.1 MG/DL; POTASSIUM SERUM 4.9 MMOL/L (3.5-5.1); SODIUM LEVEL 144.0 MMOL/L (136-145); TRIGLYCERIDES LEVEL 194.0 MG/DL (<150)
[2025-03-23 13:34] LABS: FREE T4 1.22 NG/DL (0.89-1.76)
[2025-03-23 14:13] LABS: ESTIMATED AVERAGE GLUCOSE 123.0 MG/DL (60-110)
[2025-03-23 14:24] LABS: CREATININE, URINE 70.5 MG/DL
[2025-03-23 14:25] LABS: MALB URINE SIEMENS 73.0 MG/L; MAU/CREAT RATIO 103.5 MCG/MG (0.0-30.0)
[2025-03-25 02:17] LABS: PROTEIN, TOTAL SO 7.5 g/dL (6.1-8.1)
[2025-03-27 06:53] LABS: ALBUMIN SO 4.2 g/dL (3.8-4.8); ALPHA 1 GLOBULINS SO 0.3 g/dL (0.2-0.3); ALPHA 2 GLOBULINS SO 1.0 g/dL (0.5-0.9); BETA 2 GLOBULIN SO 0.4 g/dL (0.2-0.5); BETA GLOBULIN SO 0.5 g/dL (0.4-0.6); GAMMA GLOBULINS SO 1.1 g/dL (0.8-1.7)
== END ==
LOC: M SFHCADAM 08:59
PROVIDERS: ATTEND Family Medicine
DX: N18.31 Chronic kidney disease, stage 3a (principal); E04.1 Nontoxic single thyroid nodule; E11.9 Type 2 diabetes mellitus without complications; E78.2 Mixed hyperlipidemia; D80.8 Other immunodeficiencies with predominantly antibody defects